=== PATIENT | female | born 1950 | race Caucasian/White ===

== ENCOUNTER → 2018-03-22 12:05 | Outpatient (CLI) | payer MEDICARE, BC, SELFPAY ==
--- NOTE | 2018-03-22 12:06 | DI.RAD.S_ITS ---
PROCEDURE: XR KNEE RT 3V INDICATIONS: pain in R knee TECHNIQUE: 3 views of the knee were acquired. COMPARISON: None. FINDINGS: Bones: No displaced fractures or dislocations are evident. There is questionable cortical lucency within the region of the tibial spines which could potentially represent a nondisplaced fracture. No suspicious bony lesions. The bone mineralization is slightly decreased. There are degenerative changes throughout the knee joint, most pronounced involving the patellofemoral compartment. Soft tissues: There is a large joint effusion. No suspicious soft tissue calcifications. IMPRESSION: Mild cortical heterogeneity within the region of the tibial spines with an associated prominent joint effusion is suspicious for possible nondisplaced tibial spine avulsion fracture. Please consider CT for further evaluation. Dictated by: Daryl Chang M.D. on 03/22/2018 at 12:17 Approved by: Daryl Chang M.D. on 03/22/2018 at 12:19
== END ==
PROVIDERS: Family Provider Physical Medicine & Rehabilitation; PCP Internal Medicine; Visit Provider Physician Assistant
DX: M25.561 Pain in right knee (principal); M25.461 Effusion, right knee
CPT/HCPCS: 73562

== ENCOUNTER → 2018-03-25 13:14 | Outpatient (CLI) | payer MEDICARE, BC, SELFPAY ==
--- NOTE | 2018-03-25 13:17 | DI.CT.S_ITS ---
PROCEDURE: CT LE RT WO CON INDICATIONS: concerning xray for possible fracture TECHNIQUE: Noncontrast 1-1.5 mm axial sections acquired from the mid-patella to the proximal tibia, with coronal and sagittal reformats. COMPARISON: [facility], CR, XR KNEE RT 3V, 03/22/2018, 12:16. FINDINGS: Image quality: Diagnostic. Bones: There is no acute fracture, dislocation, or suspicious osseous lesions identified involving the osseous structures of the right knee. The bone mineralization is within normal limits for the patient's age. There are mild degenerative changes of the knee joint and the proximal tibiofibular joint. These findings are more prominent involving the patellofemoral compartment. Soft tissues: There is a moderate-sized knee joint effusion with a probable Perkins's cyst. No soft tissue masses or loculated fluid collections are evident. There is edema within the prepatellar soft tissues. Imaged muscles about the knee are within normal limits without significant muscle atrophy. Please note that the ligamentous, cartilaginous, and tendinous structures of the knee are not adequately evaluated on CT. There may be a ganglion cyst along the posterior cruciate ligament. IMPRESSION: 1. No acute fracture of the right knee. 2. Mild degenerative changes of the knee. 2. Moderate knee joint effusion with a probable Perkins's cyst. 3. Questionable ganglion cyst on the course of the posterior cruciate ligament. Dictated by: Daryl Chang M.D. on 03/25/2018 at 12:59 Approved by: Daryl Chang M.D. on 03/25/2018 at 13:12
== END ==
PROVIDERS: Family Provider Physical Medicine & Rehabilitation; PCP Internal Medicine; Visit Provider Physician Assistant
DX: M25.561 Pain in right knee (principal); M17.11 Unilateral primary osteoarthritis, right knee; M25.461 Effusion, right knee
CPT/HCPCS: 73700

== ENCOUNTER → 2018-06-20 12:29 | Outpatient (CLI) | payer MEDICARE, BC, SELFPAY ==
[2018-06-20 16:56] LABS: Rubella Antibody IgG > 350.0 IU/mL (>15)
[2018-06-22 14:13] LABS: Rubeola Measles IgG > 300.00 AU/mL (< 25.00)
== END ==
PROVIDERS: PCP Internal Medicine; Visit Provider Internal Medicine
DX: Z78.9 Other specified health status (principal)
CPT/HCPCS: 36415; 86735; 86762; 86765

== ENCOUNTER → 2018-10-17 15:00 | Outpatient (CLI) | payer MEDICARE, BC, SELFPAY | PROVIDERS: Family Provider Physical Medicine & Rehabilitation; PCP Internal Medicine; Visit Provider Internal Medicine | DX: N39.0 Urinary tract infection, site not specified (principal) | CPT/HCPCS: 87077; 87086; 87186 ==

== ENCOUNTER 2018-10-31 07:30 | Outpatient (RCR) | payer MEDICARE, BC, SELFPAY ==
--- NOTE | 2017-07-17 13:39 | PT.OTN ---
Addendum entered and electronically signed by Abiola Mejia, PT 07/17/17 14:42: Transition note: On July 17, 2017 our therapy services consisting of Speech, Occupational, and Physical Therapy transitioned from the [employer] electronic documentation system to a new [employer] electronic documentation system.?? All documentation prior to July 17 can be found under [employer] saved data. From July 17 forward all medical record documentation will be in [employer] 6[employer]1. Original Note: Physical Therapy Treatment Note PT-OP-A Visit Information Start: 07/17/17 13:15 Freq: Status: Active Protocol: Activity Type Activity Date Activity User E-Sign Co-Sign Detail Recorded Client Recorded Date Recorded By Document 07/17/17 13:19 AMB [email or web address] 07/17/17 13:36 AMB 07/17/17 13:19 Out-Patient Physical Therapy Visit Information [Visit Information] -Visit Type Treatment Note -Visit Note POC expires August 31. G codes due visit 13. -Visit Start Time 09:10 -Visit Stop Time 09:50 -Total Visit Minutes 40 -Visit Number 5 PT-OP-C Subjective Start: 07/17/17 13:15 Freq: Status: Active Protocol: Activity Type Activity Date Activity User E-Sign Co-Sign Detail Recorded Client Recorded Date Recorded By Document 07/17/17 13:19 AMB [email or web address] 07/17/17 13:36 AMB 07/17/17 13:19 OP-PT Subjective [Patient Comments] -Patient Comments Pt states she is back on her cancer medication. She feels that her dizziness is worse now that she has been back on it , but it never really went away completely . PT-OP-Q Treatments Start: 07/17/17 13:15 Freq: Status: Active Protocol: Activity Type Activity Date Activity User E-Sign Co-Sign Detail Recorded Client Recorded Date Recorded By Document 07/17/17 13:19 AMB [email or web address] 07/17/17 13:36 AMB 07/17/17 13:19 Neuro Re-Education Treatment [Other Activities] Nakita kuhn -Details Left -Reps/Duration 3 -Comments Patient with torsional upbeating nystagmus with 1st rep lasted 45 seconds, with third rep only 10 seconds . PT-OP-T Assessment and Plan Start: 07/17/17 13:15 Freq: Status: Active Protocol: Activity Type Activity Date Activity User E-Sign Co-Sign Detail Recorded Client Recorded Date Recorded By Document 07/17/17 13:19 AMB [email or web address] 07/17/17 13:36 AMB 07/17/17 13:19 Physical Therapy Assessment [Assessment Summary] -Assessment The patient had torsional nystagmus with left Elyssa Hallpike, which previously was negative. Plan to recheck both right and left at next visit. Physical Therapy Plan [Next Visit Focus/Plan] -Next Visit Plan Recheck [place]- hallpike bilaterally. Current Diagnoses Benign paroxysmal vertigo, unspecified ear (07/17/17)
--- NOTE | 2017-07-30 09:01 | PT.OTN ---
Current Diagnoses Benign paroxysmal vertigo, unspecified ear (07/30/17) Physical Therapy Treatment Note PT-OP-A Visit Information Start: 07/17/17 13:15 Freq: Status: Active Protocol: Document 07/30/17 08:47 AMB (Rec: 07/30/17 08:49 AMB [id number]) Out-Patient Physical Therapy Visit Information Visit Information Visit Type Treatment Note Visit Note POC expires August 31. G codes due vist 13. Visit Start Time 08:00 Visit Stop Time 08:45 Total Visit Minutes 45 Visit Number 6 PT-OP-C Subjective Start: 07/17/17 13:15 Freq: Status: Active Protocol: Document 07/30/17 08:47 AMB (Rec: 07/30/17 08:49 AMB [id number]) OP-PT Subjective Patient Comments Patient Comments Pt states she is feeling better, but today she was dizzy putting her contacts in (tilting her head back). PT-OP-Q Treatments Start: 07/17/17 13:15 Freq: Status: Active Protocol: Document 07/30/17 08:47 AMB (Rec: 07/30/17 08:53 AMB [id number]) Self-Care/Home Management Treatment Activities Self-Care/Home Management Activities post maneuver precautions. managing gardening without flaring sx. Canalithic Repositioning BPPV Treatment Nakita Affected Canal(s) R Reps 3 Comments No nystagmus with L [place]- Hallpike, but strong response to R with the 1st rep, diminished after 3 rep. PT-OP-T Assessment and Plan Start: 07/17/17 13:15 Freq: Status: Active Protocol: Document 07/30/17 08:47 AMB (Rec: 07/30/17 09:01 AMB [id number]) Physical Therapy Assessment Assessment Summary Assessment Pt without nystagmus with L [place]-Hallpike, but with strong torsional response to R Elyssa- Hallpike, possible pt previously had bilateral BPPV and now just R. Physical Therapy Plan Next Visit Focus/Plan Next Visit Plan Reassess [place]-Hallpike position
--- NOTE | 2017-08-16 13:19 | PT.OTN ---
Current Diagnoses Benign paroxysmal vertigo, unspecified ear (08/16/17) Physical Therapy Treatment Note PT-OP-A Visit Information Start: 07/17/17 13:15 Freq: Status: Active Protocol: Document 08/16/17 09:00 AMB (Rec: 08/16/17 13:18 AMB [email or web address]) Out-Patient Physical Therapy Visit Information Visit Information Visit Type Treatment Note Visit Note G codes visit 13. new POC August 31. Visit Start Time 09:00 Visit Stop Time 09:30 Total Visit Minutes 30 Visit Number 7 Evaluation Information Evaluation Date 05/17/17 PT-OP-C Subjective Start: 07/17/17 13:15 Freq: Status: Active Protocol: Document 08/16/17 09:00 AMB (Rec: 08/16/17 13:18 AMB [email or web address]) OP-PT Subjective Patient Comments Patient Comments Pt had VNG that showed L BPPV and L vestibular hypofunction. Overall her dizziness continues but is more manageable. PT-OP-Q Treatments Start: 07/17/17 13:15 Freq: Status: Active Protocol: Document 08/16/17 09:00 AMB (Rec: 08/16/17 13:18 AMB [email or web address]) Neuro Re-Education Treatment Other Activities Hardy Bedoya Details Left Reps/Duration 2 Comments Pt with nystagmus both to the right and the left Nakita manuever Details Left Reps/Duration 1 Comments Patient with torsional upbeating nystagmus with 1st, 2nd and 3rd positions Self-Care/Home Management Treatment Activities Self-Care/Home Management Activities post maneuver precautions. Needed to review again, provide additional paperwork next visit if continues to have questions. PT-OP-T Assessment and Plan Start: 07/17/17 13:15 Freq: Status: Active Protocol: Document 08/16/17 09:00 AMB (Rec: 08/16/17 13:18 AMB [email or web address]) Physical Therapy Assessment Assessment Summary Assessment Pt with nystagmus with positions 1-3 with treatment for L side. Likely BPPV bilateral. Will need to progress vestibular and balance re-ed as well. Physical Therapy Plan Frequency and Duration Frequency of Treatment 2x/Week Plan of Care End Date 08/31/17 Next Visit Focus/Plan Next Visit Plan Try Semont manuever if not progressing with Nakita. Please Sign and Return: I have reviewed this Plan of Care and certify that the skilled therapy services above are required to meet the patient???s needs. Physician Signature Date Printed Name and Credentials Clinical Instructor Signature Printed Name and Credentials
--- NOTE | 2017-08-23 06:50 | PT.OTN ---
Current Diagnoses Benign paroxysmal vertigo, unspecified ear (08/22/17) Physical Therapy Treatment Note PT-OP-A Visit Information Start: 07/17/17 13:15 Freq: Status: Active Protocol: Document 08/22/17 08:15 AMB (Rec: 08/23/17 06:49 AMB [email or web address]) Out-Patient Physical Therapy Visit Information Visit Information Visit Type Treatment Note Visit Note G codes visit 13. new POC August 31. Visit Start Time 08:15 Visit Stop Time 09:00 Total Visit Minutes 45 Visit Number 8 Evaluation Information Evaluation Date 05/17/17 PT-OP-C Subjective Start: 07/17/17 13:15 Freq: Status: Active Protocol: Document 08/22/17 08:15 AMB (Rec: 08/23/17 06:49 AMB [email or web address]) OP-PT Subjective Patient Comments Patient Comments Pt states she had been feeling better, less spinning, until this morning when the spinning returned. She has still felt quite off balance at times. PT-OP-Q Treatments Start: 07/17/17 13:15 Freq: Status: Active Protocol: Document 08/22/17 08:15 AMB (Rec: 08/23/17 06:49 AMB [email or web address]) Neuro Re-Education Treatment Balance Activities 2 Details modified tandem Comments tried to add HT 1 Details SLS Comments Difficult. EO Vestibular Rehabilitation X1 Viewing Background plain Distance From Target 3' Speed slow Position NBOS Other Activities Nakita manuever Details Right Reps/Duration 1 Comments Patient with torsional upbeating nystagmus with 1st position PT-OP-T Assessment and Plan Start: 07/17/17 13:15 Freq: Status: Active Protocol: Document 08/22/17 08:15 AMB (Rec: 08/23/17 06:49 AMB [email or web address]) Physical Therapy Assessment Assessment Summary Assessment Pt without nystagmus in L [place] Hallpike, but did have it in R Elyssa Hallpike. R Nakita performed. Not as long lasting of nystagmus as previous, began treatement of L sided vestibular weakness. Physical Therapy Plan Frequency and Duration Frequency of Treatment 2x/Week Plan of Care End Date 08/31/17 Next Visit Focus/Plan Next Visit Plan Check R and L Elyssa Hallpike, can try Semont, progress vestibular retraining. Please Sign and Return: I have reviewed this Plan of Care and certify that the skilled therapy services above are required to meet the patient?s needs. Physician Signature Date Printed Name and Credentials Clinical Instructor Signature Printed Name and Credentials
--- NOTE | 2017-08-28 06:53 | PT.OTN ---
Current Diagnoses Benign paroxysmal vertigo, unspecified ear (08/27/17) Physical Therapy Treatment Note PT-OP-A Visit Information Start: 07/17/17 13:15 Freq: Status: Active Protocol: Document 08/27/17 08:15 AMB (Rec: 08/28/17 06:51 AMB [email or web address]) Out-Patient Physical Therapy Visit Information Visit Information Visit Type Treatment Note Visit Note G codes visit 13. new POC August 31. Visit Start Time 08:15 Visit Stop Time 09:00 Total Visit Minutes 45 Visit Number 9 PT-OP-C Subjective Start: 07/17/17 13:15 Freq: Status: Active Protocol: Document 08/27/17 08:15 AMB (Rec: 08/28/17 06:51 AMB [email or web address]) OP-PT Subjective Patient Comments Patient Comments pt states she was doing pretty well until yesterday, she was quite dizzy all day PT-OP-Q Treatments Start: 07/17/17 13:15 Freq: Status: Active Protocol: Document 08/27/17 08:15 AMB (Rec: 08/28/17 06:51 AMB [email or web address]) Neuro Re-Education Treatment Other Activities Nakita manuever Details Left Reps/Duration 2 Comments Patient with torsional upbeating nystagmus with 1st position PT-OP-T Assessment and Plan Start: 07/17/17 13:15 Freq: Status: Active Protocol: Document 08/27/17 08:15 AMB (Rec: 08/28/17 06:51 AMB [email or web address]) Physical Therapy Assessment Assessment Summary Assessment Pt needed continued education on role of Elyssa-hallpike vs vestibular hypofunction.May try instruction in home Nakita. Physical Therapy Plan Frequency and Duration Frequency of Treatment 2x/Week Plan of Care End Date 08/31/17 Next Visit Focus/Plan Next Note Type Progress Note Next Visit Plan New POC Please Sign and Return: I have reviewed this Plan of Care and certify that the skilled therapy services above are required to meet the patient?s needs. Physician Signature Date Printed Name and Credentials Clinical Instructor Signature Printed Name and Credentials
--- NOTE | 2017-08-29 09:45 | PT.OTN ---
Current Diagnoses Benign paroxysmal vertigo, unspecified ear (08/29/17) Physical Therapy Treatment Note PT-OP-A Visit Information Start: 07/17/17 13:15 Freq: Status: Active Protocol: Document 08/29/17 08:15 AMB (Rec: 08/29/17 08:49 AMB [id number]) Out-Patient Physical Therapy Visit Information Visit Information Visit Type Treatment Note Visit Note G codes visit 13. new POC August 31. Visit Start Time 08:15 Visit Stop Time 09:00 Total Visit Minutes 45 Visit Number 10 Evaluation Information Evaluation Date 05/17/17 PT-OP-C Subjective Start: 07/17/17 13:15 Freq: Status: Active Protocol: Document 08/29/17 08:15 AMB (Rec: 08/29/17 08:49 AMB [id number]) OP-PT Subjective Patient Comments Patient Comments Pt had a really good day yesterday. PT-OP-Q Treatments Start: 07/17/17 13:15 Freq: Status: Active Protocol: Document 08/29/17 09:00 AMB (Rec: 08/29/17 09:44 AMB [id number]) Neuro Re-Education Treatment Balance Activities 2 Details modified tandem Comments tried to add HT Vestibular Rehabilitation X1 Viewing Background plain Distance From Target 3' Speed slow Position NBOS Other Activities Nakita manuever Details Left and Right Reps/Duration 2 Comments Patient with torsional upbeating nystagmus with 1st position PT-OP-T Assessment and Plan Start: 07/17/17 13:15 Freq: Status: Active Protocol: Document 08/29/17 08:15 AMB (Rec: 08/29/17 09:01 AMB [id number]) Physical Therapy Assessment Assessment Summary Assessment Continued torsional nystagmus with both R and L [place]-Hallpike . Physical Therapy Plan Next Visit Focus/Plan Next Visit Plan Progress VOR1 exercise Please Sign and Return: I have reviewed this Plan of Care and certify that the skilled therapy services above are required to meet the patient?s needs. Physician Signature Date Printed Name and Credentials Clinical Instructor Signature Printed Name and Credentials
--- NOTE | 2017-09-03 15:46 | PT.OTN ---
Current Diagnoses Benign paroxysmal vertigo, unspecified ear (09/03/17) Physical Therapy Treatment Note PT-OP-A Visit Information Start: 07/17/17 13:15 Freq: Status: Active Protocol: Document 09/03/17 08:15 AMB (Rec: 09/03/17 08:51 AMB [id number]) Out-Patient Physical Therapy Visit Information Visit Information Visit Type Progress Note Visit Start Time 08:15 Visit Stop Time 09:00 Total Visit Minutes 45 Visit Number 11 Evaluation Information Evaluation Date 05/17/17 PT-OP-C Subjective Start: 07/17/17 13:15 Freq: Status: Active Protocol: Document 09/03/17 08:15 AMB (Rec: 09/03/17 15:45 AMB [email or web address]) OP-PT Subjective Patient Comments Patient Comments Patient states she felt good except for getting dizzy when going up and down the stairs at the movie theater and getting up today from bed. Patient Reported Progress Improving PT-OP-Q Treatments Start: 07/17/17 13:15 Freq: Status: Active Protocol: Document 09/03/17 08:15 AMB (Rec: 09/03/17 15:45 AMB [email or web address]) Neuro Re-Education Treatment Balance Activities 2 Details modified tandem Comments better tolerance of slow HT 1 Details SLS Comments Difficult. EO Other Activities Nakita chelyever Details Right Reps/Duration 1 Comments Patient with torsional upbeating nystagmus with 1st position PT-OP-T Assessment and Plan Start: 07/17/17 13:15 Freq: Status: Active Protocol: Document 09/03/17 08:15 AMB (Rec: 09/03/17 15:45 AMB [email or web address]) Physical Therapy Assessment Goals 2 Impairment Balance Short Term Goal (STG) The patient will turn her head without spinning. STG Duration 4 weeks Retirement Goal (LTG) The patient will improve her balance so that she can tolerate modified tandem stance with eyes closed for 30 seconds without LOB. LTG Duration 8 weeks 1 Impairment Dizziness Short Term Goal (STG) The patient will display no nystagmus or dizziness with [place]-Hallpike. STG Duration 4 weeks Practice Consultant Goal (LTG) The patient will get into and out of bed without spinning symptoms. LTG Duration 8 weeks Assessment Summary Assessment The patient reports about 60% improvement in symptoms since initial evaluation. While she originally had BPPV in both right and left posterior canals, at this visit she only showed nystagmus in the right ear. She continues to have poor balance and a feeling of spinning and not trusting her balance intermittently. She does not always spin when getting out of bed like she used to. She is an interesting case, and we will closely watch if her symptoms in the left ear return. She seems to be doing better with this increased frequency of PT , and we will work to get her independent with a vestibular rehab HEP once she does not show nystagmus with Elyssa- hallpike testing. Physical Therapy Plan Frequency and Duration Frequency of Treatment 2x/Week Duration of Treatment 8 weeks Plan of Care Start Date 09/03/17 Plan of Care End Date 10/29/17 Therapeutic Interventions Therapeutic Interventions Balance Training Canalithic Repositioning Coordination Training Gait Training Home Exercise Program Neuromuscular Re-education Self-Care/Home Management Therapeutic Activities Therapeutic Exercises Next Visit Focus/Plan Next Note Type Treatment Note
--- NOTE | 2017-09-11 15:23 | PT.OTN ---
Current Diagnoses Benign paroxysmal vertigo, unspecified ear (09/11/17) Physical Therapy Treatment Note PT-OP-A Visit Information Start: 07/17/17 13:15 Freq: Status: Active Protocol: Document 09/11/17 08:15 AMB (Rec: 09/11/17 08:22 AMB [id number]) Out-Patient Physical Therapy Visit Information Visit Information Visit Type Treatment Note Visit Start Time 08:15 Visit Stop Time 09:00 Total Visit Minutes 45 Visit Number 13 Evaluation Information Evaluation Date 05/17/17 PT-OP-C Subjective Start: 07/17/17 13:15 Freq: Status: Active Protocol: Document 09/11/17 08:15 AMB (Rec: 09/11/17 08:22 AMB [id number]) OP-PT Subjective Patient Comments Patient Comments Pt felt sx with L ear down yesterday. Has been able to go on long walks, without sx, but then gets sx later in the evening. PT-OP-Q Treatments Start: 07/17/17 13:15 Freq: Status: Active Protocol: Document 09/11/17 08:15 AMB (Rec: 09/11/17 08:48 AMB [id number]) Neuro Re-Education Treatment Balance Activities 2 Details modified tandem Comments better tolerance of slow HT Other Activities 1 Details Semont Reps/Duration R 1 PT-OP-T Assessment and Plan Start: 07/17/17 13:15 Freq: Status: Active Protocol: Document 09/11/17 08:15 AMB (Rec: 09/11/17 15:23 AMB [email or web address]) Physical Therapy Assessment Assessment Summary Assessment The patient continues to have dizziness and less spinning. Today was the first day that she did not have nystagmus with either R or L [place] Hallpike. Continues to need to work on VOR and balance activities. Will be rechecking Elyssa Hallpike as pt continues to feel intermittent spinning, but overall much less frequent and less severe. Physical Therapy Plan Next Visit Focus/Plan Next Note Type Treatment Note Next Visit Plan Progress VOR, dynamic balance.
--- NOTE | 2017-09-14 08:54 | PT.OTN ---
Current Diagnoses Benign paroxysmal vertigo, unspecified ear (09/14/17) Physical Therapy Treatment Note PT-OP-A Visit Information Start: 07/17/17 13:15 Freq: Status: Active Protocol: Document 09/14/17 08:15 AMB (Rec: 09/14/17 08:19 AMB [id number]) Out-Patient Physical Therapy Visit Information Visit Information Visit Type Treatment Note Visit Start Time 08:15 Visit Stop Time 09:00 Total Visit Minutes 45 Visit Number 14 Evaluation Information Evaluation Date 05/17/17 PT-OP-C Subjective Start: 07/17/17 13:15 Freq: Status: Active Protocol: Document 09/14/17 08:15 AMB (Rec: 09/14/17 08:26 AMB [id number]) OP-PT Subjective Patient Comments Patient Comments Pt reports dizziness rolling over at massage therapists yesterday. PT-OP-Q Treatments Start: 07/17/17 13:15 Freq: Status: Active Protocol: Document 09/14/17 08:15 AMB (Rec: 09/14/17 08:50 AMB [id number]) Neuro Re-Education Treatment Other Activities 1 Details Semont Reps/Duration L1 Nakita manuever Details L Reps/Duration 1 PT-OP-T Assessment and Plan Start: 07/17/17 13:15 Freq: Status: Active Protocol: Document 09/14/17 08:15 AMB (Rec: 09/14/17 08:50 AMB [id number]) Physical Therapy Assessment Assessment Summary Assessment Pt with increased sx on the left today Physical Therapy Plan Frequency and Duration Frequency of Treatment 2x/Week Duration of Treatment 8 weeks Plan of Care Start Date 09/03/17 Plan of Care End Date 10/29/17 Next Visit Focus/Plan Next Note Type Treatment Note Next Visit Plan Reassess L [place]-Hallpike
--- NOTE | 2017-09-18 16:34 | PT.OTN ---
Current Diagnoses Benign paroxysmal vertigo, unspecified ear (09/18/17) Physical Therapy Treatment Note PT-OP-A Visit Information Start: 07/17/17 13:15 Freq: Status: Active Protocol: Document 09/18/17 08:20 AMB (Rec: 09/18/17 08:25 AMB [id number]) Out-Patient Physical Therapy Visit Information Visit Information Visit Type Treatment Note Visit Start Time 08:20 Visit Stop Time 09:00 Total Visit Minutes 40 Visit Number 15 Evaluation Information Evaluation Date 05/17/17 PT-OP-C Subjective Start: 07/17/17 13:15 Freq: Status: Active Protocol: Document 09/18/17 08:20 AMB (Rec: 09/18/17 08:25 AMB [id number]) OP-PT Subjective Patient Comments Patient Comments Pt reports sx increase when tired and fatigued. PT-OP-Q Treatments Start: 07/17/17 13:15 Freq: Status: Active Protocol: Document 09/18/17 08:20 AMB (Rec: 09/18/17 16:33 AMB [email or web address]) Neuro Re-Education Treatment Balance Activities 2 Details modified tandem Comments better tolerance of slow HT Vestibular Rehabilitation X1 Viewing Details thumb Speed slow Comments modified tandem PT-OP-T Assessment and Plan Start: 07/17/17 13:15 Freq: Status: Active Protocol: Document 09/18/17 08:20 AMB (Rec: 09/18/17 16:33 AMB [email or web address]) Physical Therapy Assessment Goals 2 Impairment Balance Short Term Goal (STG) The patient will turn her head without spinning. STG Duration 4 weeks Tumblers Supervisor Goal (LTG) The patient will improve her balance so that she can tolerate modified tandem stance with eyes closed for 30 seconds without LOB. LTG Duration 8 weeks 1 Impairment Dizziness Short Term Goal (STG) The patient will display no nystagmus or dizziness with [place]-Hallpike. STG Duration 4 weeks Tumblers Supervisor Goal (LTG) The patient will get into and out of bed without spinning symptoms. LTG Duration 8 weeks Assessment Summary Assessment No nystagmus with R or L [place] Hallpike today. However pt with five line change in DVA. Will continue to need vestibular rehab, and will recheck [place]pike bilaterally. Physical Therapy Plan Next Visit Focus/Plan Next Note Type Treatment Note Next Visit Plan Progress vestibular rehab
--- NOTE | 2017-09-21 15:22 | PT.OTN ---
Current Diagnoses Benign paroxysmal vertigo, unspecified ear (09/21/17) Physical Therapy Treatment Note PT-OP-A Visit Information Start: 07/17/17 13:15 Freq: Status: Active Protocol: Document 09/21/17 08:15 AMB (Rec: 09/21/17 15:22 AMB [email or web address]) Out-Patient Physical Therapy Visit Information Visit Information Visit Type Treatment Note Visit Start Time 08:15 Visit Stop Time 09:00 Total Visit Minutes 45 Visit Number 16 Evaluation Information Evaluation Date 05/17/17 PT-OP-C Subjective Start: 07/17/17 13:15 Freq: Status: Active Protocol: Document 09/21/17 08:15 AMB (Rec: 09/21/17 15:22 AMB [email or web address]) OP-PT Subjective Patient Comments Patient Comments Overall pt has noticed improved sx, still feels off balance with more adventurous activities (hiking around [place]). PT-OP-Q Treatments Start: 07/17/17 13:15 Freq: Status: Active Protocol: Document 09/21/17 08:15 AMB (Rec: 09/21/17 15:22 AMB [email or web address]) Neuro Re-Education Treatment Balance Activities 5 Details EC Surface blue foam Comments increased ankle sway, in corner 4 Details walking with bow forward 3 Details walking with head turns Surface smooth Comments horizontal and vertical, veering with horizontal 2 Details modified tandem Comments better tolerance of slow HT Vestibular Rehabilitation X1 Viewing Details thumb Speed slow Comments modified tandem PT-OP-T Assessment and Plan Start: 07/17/17 13:15 Freq: Status: Active Protocol: Document 09/21/17 08:15 AMB (Rec: 09/21/17 15:22 AMB [email or web address]) Physical Therapy Assessment Assessment Summary Assessment Again no nystagmus, but continued balance dysfunction, worst with horizontal head turns. Physical Therapy Plan Frequency and Duration Frequency of Treatment 2x/Week Duration of Treatment 8 weeks Plan of Care Start Date 09/03/17 Plan of Care End Date 10/29/17 Next Visit Focus/Plan Next Note Type Treatment Note Next Visit Plan Progress vestibular rehab
--- NOTE | 2017-09-25 09:01 | PT.OTN ---
Current Diagnoses Benign paroxysmal vertigo, unspecified ear (09/25/17) Physical Therapy Treatment Note PT-OP-A Visit Information Start: 07/17/17 13:15 Freq: Status: Active Protocol: Document 09/25/17 08:15 AMB (Rec: 09/25/17 08:19 AMB [id number]) Out-Patient Physical Therapy Visit Information Visit Information Visit Type Treatment Note Visit Start Time 08:15 Visit Stop Time 09:00 Total Visit Minutes 45 Visit Number 17 Evaluation Information Evaluation Date 05/17/17 PT-OP-C Subjective Start: 07/17/17 13:15 Freq: Status: Active Protocol: Document 09/25/17 08:15 AMB (Rec: 09/25/17 08:19 AMB [id number]) OP-PT Subjective Patient Comments Patient Comments Pt reports dizziness last night with getting up and turning PT-OP-Q Treatments Start: 07/17/17 13:15 Freq: Status: Active Protocol: Document 09/25/17 08:15 AMB (Rec: 09/25/17 09:00 AMB [id number]) Neuro Re-Education Treatment Vestibular Rehabilitation X1 Viewing Details thumb Speed slow Comments modified tandem Other Activities Nakita manuever Details R Reps/Duration 2 PT-OP-T Assessment and Plan Start: 07/17/17 13:15 Freq: Status: Active Protocol: Document 09/25/17 08:15 AMB (Rec: 09/25/17 09:00 AMB [id number]) Physical Therapy Assessment Assessment Summary Assessment Pt with nystagmus with R sided [place]-Hallpike. Torsional upbeating with both 1st and 2nd rep. Physical Therapy Plan Next Visit Focus/Plan Next Note Type Treatment Note
--- NOTE | 2017-10-02 09:23 | PT.OTN ---
Current Diagnoses Benign paroxysmal vertigo, unspecified ear (10/02/17) Physical Therapy Treatment Note PT-OP-A Visit Information Start: 07/17/17 13:15 Freq: Status: Active Protocol: Document 10/02/17 08:15 AMB (Rec: 10/02/17 09:01 AMB [id number]) Out-Patient Physical Therapy Visit Information Visit Information Visit Type Treatment Note Visit Start Time 08:15 Visit Stop Time 09:00 Total Visit Minutes 45 Visit Number 18 Evaluation Information Evaluation Date 05/17/17 PT-OP-C Subjective Start: 07/17/17 13:15 Freq: Status: Active Protocol: Document 10/02/17 08:15 AMB (Rec: 10/02/17 09:01 AMB [id number]) OP-PT Subjective Patient Comments Patient Comments Pt reports dizziness yesterday , otherwise doing well. PT-OP-Q Treatments Start: 07/17/17 13:15 Freq: Status: Active Protocol: Document 10/02/17 08:15 AMB (Rec: 10/02/17 09:15 AMB [email or web address]) Neuro Re-Education Treatment Balance Activities 5 Details EC Surface blue foam Comments increased ankle sway, in corner 3 Details walking with head turns Surface smooth Comments horizontal and vertical, veering with horizontal 2 Details modified tandem Comments better tolerance of slow HT Vestibular Rehabilitation X1 Viewing Details thumb Speed slow Comments modified tandem PT-OP-T Assessment and Plan Start: 07/17/17 13:15 Freq: Status: Active Protocol: Document 10/02/17 08:15 AMB (Rec: 10/02/17 09:15 AMB [email or web address]) Physical Therapy Assessment Assessment Summary Assessment No nystagmus with Elyssa-hallpike testing today, but pt with multiple LOB with eyes closed activities. Physical Therapy Plan Next Visit Focus/Plan Next Note Type Treatment Note Next Visit Plan Progress vestibular rehab
--- NOTE | 2017-10-05 17:31 | PT.OTN ---
Current Diagnoses Benign paroxysmal vertigo, unspecified ear (10/05/17) Physical Therapy Treatment Note PT-OP-A Visit Information Start: 07/17/17 13:15 Freq: Status: Active Protocol: Document 10/05/17 08:15 AMB (Rec: 10/05/17 08:46 AMB [id number]) Out-Patient Physical Therapy Visit Information Visit Information Visit Type Treatment Note Visit Start Time 08:15 Visit Stop Time 09:00 Total Visit Minutes 45 Visit Number 19 Evaluation Information Evaluation Date 05/17/17 PT-OP-C Subjective Start: 07/17/17 13:15 Freq: Status: Active Protocol: Document 10/05/17 08:15 AMB (Rec: 10/05/17 08:46 AMB [id number]) OP-PT Subjective Patient Comments Patient Comments Pt concerned about her neck dysfunction. PT-OP-Q Treatments Start: 07/17/17 13:15 Freq: Status: Active Protocol: Document 10/05/17 08:15 AMB (Rec: 10/05/17 17:30 AMB [email or web address]) Neuro Re-Education Treatment Balance Activities 5 Details EC Surface blue foam Comments increased ankle sway, in corner 3 Details walking with head turns Surface smooth Comments horizontal and vertical, veering with horizontal and vertical 2 Details modified tandem Comments better tolerance of slow HT Vestibular Rehabilitation X1 Viewing Details thumb Speed slow Comments modified tandem PT-OP-T Assessment and Plan Start: 07/17/17 13:15 Freq: Status: Active Protocol: Document 10/05/17 08:15 AMB (Rec: 10/05/17 17:30 AMB [email or web address]) Physical Therapy Assessment Assessment Summary Assessment No nystagmus with [place]-hallpike . Pt concerned about cervicogenic dizziness but denies neck pain, had more dizziness with cervicogenic testing. Physical Therapy Plan Next Visit Focus/Plan Next Note Type Treatment Note Next Visit Plan Progress vestibular rehab
--- NOTE | 2017-10-18 09:39 | PT.OTN ---
Current Diagnoses Benign paroxysmal vertigo, unspecified ear (10/18/17) Physical Therapy Treatment Note PT-OP-A Visit Information Start: 07/17/17 13:15 Freq: Status: Active Protocol: Document 10/18/17 07:30 AMB (Rec: 10/18/17 07:44 AMB [id number]) Out-Patient Physical Therapy Visit Information Visit Information Visit Type Treatment Note Visit Start Time 08:15 Visit Stop Time 09:00 Total Visit Minutes 45 Visit Number 20 Evaluation Information Evaluation Date 05/17/17 PT-OP-C Subjective Start: 07/17/17 13:15 Freq: Status: Active Protocol: Document 10/18/17 07:30 AMB (Rec: 10/18/17 07:44 AMB [id number]) OP-PT Subjective Patient Comments Patient Comments Pt has a disc bulge in L1. Last week she did feel a bit dizzy, not spinny per se. PT-OP-Q Treatments Start: 07/17/17 13:15 Freq: Status: Active Protocol: Document 10/18/17 07:30 AMB (Rec: 10/18/17 09:38 AMB [email or web address]) Neuro Re-Education Treatment Vestibular Rehabilitation X1 Viewing Details thumb Speed slow Comments modified tandem Other Activities Nakita manuever Details R Reps/Duration 2 PT-OP-T Assessment and Plan Start: 07/17/17 13:15 Freq: Status: Active Protocol: Document 10/18/17 07:30 AMB (Rec: 10/18/17 09:38 AMB [email or web address]) Physical Therapy Assessment Assessment Summary Assessment Pt with 1 burst of nystagmus with R Dix_hallpike, but not with left. Physical Therapy Plan Next Visit Focus/Plan Next Note Type Treatment Note Next Visit Plan Recheck Elyssa-Hallpike
--- NOTE | 2017-10-25 08:46 | PT.OTN ---
Current Diagnoses Benign paroxysmal vertigo, unspecified ear (10/25/17) Physical Therapy Treatment Note PT-OP-A Visit Information Start: 07/17/17 13:15 Freq: Status: Active Protocol: Document 10/25/17 07:30 AMB (Rec: 10/25/17 08:43 AMB [email or web address]) Out-Patient Physical Therapy Visit Information Visit Information Visit Type Progress Note Visit Note 0/10 G code Visit Start Time 07:30 Visit Stop Time 08:15 Total Visit Minutes 45 Visit Number 21 Evaluation Information Evaluation Date 05/17/17 PT-OP-C Subjective Start: 07/17/17 13:15 Freq: Status: Active Protocol: Document 10/25/17 07:30 AMB (Rec: 10/25/17 08:43 AMB [email or web address]) OP-PT Subjective Patient Comments Patient Comments The patient reports [place] and was very spinning. PT-OP-Q Treatments Start: 07/17/17 13:15 Freq: Status: Active Protocol: Document 10/25/17 07:30 AMB (Rec: 10/25/17 08:43 AMB [email or web address]) Neuro Re-Education Treatment Other Activities Nakita kuhn Details R Reps/Duration 2 PT-OP-T Assessment and Plan Start: 07/17/17 13:15 Freq: Status: Active Protocol: Document 10/25/17 07:30 AMB (Rec: 10/25/17 08:43 AMB [email or web address]) Physical Therapy Assessment Goals 2 Impairment Balance Short Term Goal (STG) The patient will turn her head without spinning. NOT MET STG Duration 4 weeks Truck Manager Goal (LTG) The patient will improve her balance so that she can tolerate modified tandem stance with eyes closed for 30 seconds without LOB. NOT MET LTG Duration 8 weeks 1 Impairment Dizziness Short Term Goal (STG) The patient will display no nystagmus or dizziness with Elyssa-Hallpike. Previously met, but then symptoms recurred STG Duration 4 weeks [facility] Goal (LTG) The patient will get into and out of bed without spinning symptoms. Previously met, then symptoms recurred LTG Duration 8 weeks Assessment Summary Assessment While the patient had previously had progressed past canalith repositioning and we were working more on balance exercises and how to manage her vestibular weakness symptoms. However she now has had a return of her right sided BPPV symptoms. 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 Overall her case has been quite unusual, and she is concerned that her cancer medication is worsening her vestibular sympotms. That said she is at a point now where she feels like she is managing her symptoms (this week with the return of the BPPV was worse though). Physical Therapy Plan Frequency and Duration Frequency of Treatment 2x/Week Duration of Treatment 10 weeks Plan of Care Start Date 10/25/17 Plan of Care End Date 01/03/18 Therapeutic Interventions Therapeutic Interventions Balance Training Canalithic Repositioning Gait Training Home Exercise Program Neuromuscular Re-education Self-Care/Home Management Therapeutic Activities Therapeutic Exercises Vestibular Rehabilitation Next Visit Focus/Plan Next Note Type Treatment Note Next Visit Plan Dash Tomas
--- NOTE | 2017-11-01 08:46 | PT.OTN ---
Current Diagnoses Benign paroxysmal vertigo, unspecified ear (11/01/17) Physical Therapy Treatment Note PT-OP-A Visit Information Start: 07/17/17 13:15 Freq: Status: Active Protocol: Document 11/01/17 07:30 AMB (Rec: 11/02/17 07:29 AMB [email or web address]) Out-Patient Physical Therapy Visit Information Visit Information Visit Type Treatment Note Visit Note 03/28 G code Visit Start Time 07:30 Visit Stop Time 08:15 Total Visit Minutes 45 Visit Number 22 Evaluation Information Evaluation Date 05/17/17 PT-OP-C Subjective Start: 07/17/17 13:15 Freq: Status: Active Protocol: Document 11/01/17 07:30 AMB (Rec: 11/02/17 07:29 AMB [email or web address]) OP-PT Subjective Patient Comments Patient Comments Pt has been dizzy but not too bad at times. PT-OP-Q Treatments Start: 07/17/17 13:15 Freq: Status: Active Protocol: Document 11/01/17 07:30 AMB (Rec: 11/02/17 07:45 AMB [email or web address]) Neuro Re-Education Treatment Other Activities Nakita manuever Details R Reps/Duration 3 PT-OP-T Assessment and Plan Start: 07/17/17 13:15 Freq: Status: Active Protocol: Document 11/01/17 07:30 AMB (Rec: 11/02/17 07:45 AMB [email or web address]) Physical Therapy Assessment Assessment Summary Assessment Pt with torsional upbeating nystagmus with 1st position of Nakita. Repeated instruction for post manuever precautions. Pt is fairly active (likes to golf) and avoiding bending forward and cervical extension may be difficult. Physical Therapy Plan Next Visit Focus/Plan Next Note Type Treatment Note Next Visit Plan Consider alternative canalith repositioning techniques if Nakita is not progressing
--- NOTE | 2017-11-08 10:49 | PT.OTN ---
Current Diagnoses Benign paroxysmal vertigo, unspecified ear (11/08/17) Physical Therapy Treatment Note PT-OP-A Visit Information Start: 07/17/17 13:15 Freq: Status: Active Protocol: Document 11/08/17 07:30 AMB (Rec: 11/08/17 10:47 AMB [email or web address]) Out-Patient Physical Therapy Visit Information Visit Information Visit Type Treatment Note Visit Note 2/10 G code Visit Start Time 07:30 Visit Stop Time 08:15 Total Visit Minutes 45 Visit Number 23 Evaluation Information Evaluation Date 05/17/17 PT-OP-C Subjective Start: 07/17/17 13:15 Freq: Status: Active Protocol: Document 11/08/17 07:30 AMB (Rec: 11/08/17 10:49 AMB [email or web address]) OP-PT Subjective Patient Comments Patient Comments Pt reports she was feeling pretty good on Sunday and Sunday, but spinning with rolling over in bed returned yesterday. Her single leg balance is improving. PT-OP-Q Treatments Start: 07/17/17 13:15 Freq: Status: Active Protocol: Document 11/08/17 07:30 AMB (Rec: 11/08/17 10:47 AMB [email or web address]) Neuro Re-Education Treatment Other Activities Nakita manuever Details R Reps/Duration 2 Comments torsional upbeating nystagmus with 3 second latency and then lasts for ~15 seconds. PT-OP-T Assessment and Plan Start: 07/17/17 13:15 Freq: Status: Active Protocol: Document 11/08/17 07:30 AMB (Rec: 11/08/17 10:47 AMB [email or web address]) Physical Therapy Assessment Assessment Summary Assessment Provided extensive education about anatomy of BPPV, importance of avoiding cervical extension after manuever. Pt did have sx after first repetition of Nakita when moving from looking down to looking forward. Physical Therapy Plan Next Visit Focus/Plan Next Note Type Treatment Note Next Visit Plan Consider alternative canalith repositioning techniques if Nakita is not progressing
--- NOTE | 2017-11-15 12:55 | PT.OTN ---
Current Diagnoses Benign paroxysmal vertigo, unspecified ear (11/15/17) Physical Therapy Treatment Note PT-OP-A Visit Information Start: 07/17/17 13:15 Freq: Status: Active Protocol: Document 11/15/17 09:45 AMB (Rec: 11/15/17 12:55 AMB [email or web address]) Out-Patient Physical Therapy Visit Information Visit Information Visit Type Treatment Note Visit Note 3/10 G code Visit Start Time 09:00 Visit Stop Time 09:45 Total Visit Minutes 45 Visit Number 24 Evaluation Information Evaluation Date 05/17/17 PT-OP-C Subjective Start: 07/17/17 13:15 Freq: Status: Active Protocol: Document 11/15/17 09:45 AMB (Rec: 11/15/17 12:55 AMB [email or web address]) OP-PT Subjective Patient Comments Patient Comments Pt reports Sunday she was feeling pretty good, but yesterday her golf game was completely off ( difficulty bending forward without spinning). PT-OP-Q Treatments Start: 07/17/17 13:15 Freq: Status: Active Protocol: Document 11/15/17 09:45 AMB (Rec: 11/15/17 12:55 AMB [email or web address]) Neuro Re-Education Treatment Vestibular Rehabilitation X1 Viewing Details thumb Speed slow Comments modified tandem Other Activities Nakita manuever Details R Reps/Duration 2 Comments torsional upbeating nystagmus with 3 second latency and then lasts for ~15 seconds. PT-OP-T Assessment and Plan Start: 07/17/17 13:15 Freq: Status: Active Protocol: Document 11/15/17 09:45 AMB (Rec: 11/15/17 12:55 AMB [email or web address]) Physical Therapy Assessment Goals 2 Impairment Balance Short Term Goal (STG) The patient will turn her head without spinning. NOT MET STG Duration 4 weeks Longterm Goal (LTG) The patient will improve her balance so that she can tolerate modified tandem stance with eyes closed for 30 seconds without LOB. NOT MET LTG Duration 8 weeks 1 Impairment Dizziness Short Term Goal (STG) The patient will display no nystagmus or dizziness with Elyssa-Hallpike. Previously met, but then symptoms recurred STG Duration 4 weeks Switching Clerk Goal (LTG) The patient will get into and out of bed without spinning symptoms. Previously met, then symptoms recurred LTG Duration 8 weeks Assessment Summary Assessment Needed to review X1 exercises as pt was doing them incorrectly. Reiterated post manuever precautions again. Physical Therapy Plan Frequency and Duration Frequency of Treatment 2x/Week Duration of Treatment 10 weeks Plan of Care Start Date 10/25/17 Plan of Care End Date 01/03/18 Next Visit Focus/Plan Next Note Type Treatment Note Next Visit Plan Consider alternative canalith repositioning techniques if Nakita is not progressing
--- NOTE | 2017-11-21 08:38 | PT.OTN ---
Current Diagnoses Benign paroxysmal vertigo, unspecified ear (11/21/17) Physical Therapy Treatment Note PT-OP-A Visit Information Start: 07/17/17 13:15 Freq: Status: Active Protocol: Document 11/21/17 07:30 AMB (Rec: 11/21/17 08:01 AMB [id number]) Out-Patient Physical Therapy Visit Information Visit Information Visit Type Treatment Note Visit Note 4/10 G code Visit Start Time 07:30 Visit Stop Time 08:15 Total Visit Minutes 45 Visit Number 25 Evaluation Information Evaluation Date 05/17/17 PT-OP-C Subjective Start: 07/17/17 13:15 Freq: Status: Active Protocol: Document 11/21/17 07:30 AMB (Rec: 11/21/17 08:01 AMB [id number]) OP-PT Subjective Patient Comments Patient Comments Pt reports she needed to take meclizine a few days ago. PT-OP-Q Treatments Start: 07/17/17 13:15 Freq: Status: Active Protocol: Document 11/21/17 07:30 AMB (Rec: 11/21/17 08:38 AMB [email or web address]) Neuro Re-Education Treatment Other Activities 1 Details Semont Reps/Duration 1 Comments R Nakita manuever Details R Reps/Duration 2 Comments torsional upbeating nystagmus with 5 second latency and then lasts for ~15 seconds. PT-OP-T Assessment and Plan Start: 07/17/17 13:15 Freq: Status: Active Protocol: Document 11/21/17 07:30 AMB (Rec: 11/21/17 08:38 AMB [email or web address]) Physical Therapy Assessment Assessment Summary Assessment Pt with continued nystagmus, worse with Nakita than Semont. Physical Therapy Plan Next Visit Focus/Plan Next Note Type Treatment Note Next Visit Plan Recheck Elyssa-hallpike, if sx subside return to central vestibular training
--- NOTE | 2017-11-30 09:47 | PT.OTN ---
Current Diagnoses Benign paroxysmal vertigo, unspecified ear (11/30/17) Physical Therapy Treatment Note PT-OP-A Visit Information Start: 07/17/17 13:15 Freq: Status: Active Protocol: Document 11/30/17 09:00 DCW (Rec: 11/30/17 09:46 DCW [id number]) Out-Patient Physical Therapy Visit Information Visit Information Visit Type Treatment Note Visit Note 5/10 G code Visit Start Time 09:00 Visit Stop Time 09:45 Total Visit Minutes 45 Visit Number 26 Evaluation Information Evaluation Date 05/17/17 PT-OP-C Subjective Start: 07/17/17 13:15 Freq: Status: Active Protocol: Document 11/30/17 09:00 DCW (Rec: 11/30/17 09:46 DCW [id number]) OP-PT Subjective Patient Comments Patient Comments Pt reports that yesterday was more of a dizzy day, but still feels way, way, way better than when she started PT-OP-Q Treatments Start: 07/17/17 13:15 Freq: Status: Active Protocol: Document 11/30/17 09:00 DCW (Rec: 11/30/17 09:46 DCW [id number]) Neuro Re-Education Treatment Vestibular Rehabilitation Disco Ball Distance From Target 3' Position Standing on blue foam Other Activities Nakita manuever Details R Reps/Duration 2 Comments torsional upbeating nystagmus with 5 second latency and then lasts for ~15 seconds. PT-OP-T Assessment and Plan Start: 07/17/17 13:15 Freq: Status: Active Protocol: Document 11/30/17 09:00 DCW (Rec: 11/30/17 09:46 DCW [id number]) Physical Therapy Assessment Goals 2 Impairment Balance Short Term Goal (STG) The patient will turn her head without spinning. NOT MET STG Duration 4 weeks [facility] Goal (LTG) The patient will improve her balance so that she can tolerate modified tandem stance with eyes closed for 30 seconds without LOB. NOT MET LTG Duration 8 weeks 1 Impairment Dizziness Short Term Goal (STG) The patient will display no nystagmus or dizziness with Elyssa-Hallpike. Previously met, but then symptoms recurred STG Duration 4 weeks [facility] Goal (LTG) The patient will get into and out of bed without spinning symptoms. Previously met, then symptoms recurred LTG Duration 8 weeks Assessment Summary Assessment Pt presented with positive Nakita Perales performed x2, reduced, though still present, symptoms the second time. Physical Therapy Plan Frequency and Duration Frequency of Treatment 2x/Week Duration of Treatment 10 weeks Plan of Care Start Date 10/25/17 Plan of Care End Date 01/03/18 Next Visit Focus/Plan Next Note Type Treatment Note Next Visit Plan Vestibular rehabilitation
--- NOTE | 2017-12-04 13:28 | PT.OTN ---
Current Diagnoses Benign paroxysmal vertigo, unspecified ear (12/04/17) Physical Therapy Treatment Note PT-OP-A Visit Information Start: 07/17/17 13:15 Freq: Status: Active Protocol: Document 12/04/17 12:00 DCW (Rec: 12/04/17 13:28 [facility] [id number]) Out-Patient Physical Therapy Visit Information Visit Information Visit Type Treatment Note Visit Note 6/10 G code Visit Start Time 12:00 Visit Stop Time 12:45 Total Visit Minutes 45 Visit Number 27 Evaluation Information Evaluation Date 05/17/17 PT-OP-C Subjective Start: 07/17/17 13:15 Freq: Status: Active Protocol: Document 12/04/17 12:00 DCW (Rec: 12/04/17 13:28 [facility] [id number]) OP-PT Subjective Patient Comments Patient Comments Pt notes being off-kilter today, reports that she was golfing at [facility] yesterday PT-OP-Q Treatments Start: 07/17/17 13:15 Freq: Status: Active Protocol: Document 12/04/17 12:00 DCW (Rec: 12/04/17 13:28 [facility] [id number]) Neuro Re-Education Treatment Balance Activities 6 Details Pin the tail on the donkey Comments Turns with eyes closed Vestibular Rehabilitation Laser tracking Details Signature/Maze Distance From Target 2 feet X1 Viewing Details thumb Speed slow Other Activities Nakita moever Details R Reps/Duration 2 Comments torsional upbeating nystagmus with 5 second latency and then lasts for ~15 seconds. PT-OP-T Assessment and Plan Start: 07/17/17 13:15 Freq: Status: Active Protocol: Document 12/04/17 12:00 DCW (Rec: 12/04/17 13:28 [facility] [id number]) Physical Therapy Assessment Goals 2 Impairment Balance Short Term Goal (STG) The patient will turn her head without spinning. NOT MET STG Duration 4 weeks Retirement Goal (LTG) The patient will improve her balance so that she can tolerate modified tandem stance with eyes closed for 30 seconds without LOB. NOT MET LTG Duration 8 weeks 1 Impairment Dizziness Short Term Goal (STG) The patient will display no nystagmus or dizziness with Elyssa-Hallpike. Previously met, but then symptoms recurred STG Duration 4 weeks Retirement Goal (LTG) The patient will get into and out of bed without spinning symptoms. Previously met, then symptoms recurred LTG Duration 8 weeks Assessment Summary Assessment Pt struggled greatly with turning eyes closed to the right, often stopping 45-90 degrees too early. Physical Therapy Plan Frequency and Duration Frequency of Treatment 2x/Week Duration of Treatment 10 weeks Plan of Care Start Date 10/25/17 Plan of Care End Date 01/03/18 Next Visit Focus/Plan Next Note Type Treatment Note Next Visit Plan Vestibular rehabilitation
--- NOTE | 2017-12-14 10:16 | PT.OTN ---
Current Diagnoses Benign paroxysmal vertigo, unspecified ear (12/14/17) Physical Therapy Treatment Note PT-OP-A Visit Information Start: 07/17/17 13:15 Freq: Status: Active Protocol: Document 12/14/17 09:00 DCW (Rec: 12/14/17 10:16 DCW [id number]) Out-Patient Physical Therapy Visit Information Visit Information Visit Type Treatment Note Visit Note 7/10 G code Visit Start Time 09:00 Visit Stop Time 09:45 Total Visit Minutes 45 Visit Number 28 Evaluation Information Evaluation Date 05/17/17 PT-OP-C Subjective Start: 07/17/17 13:15 Freq: Status: Active Protocol: Document 12/14/17 09:00 DCW (Rec: 12/14/17 10:16 DCW [id number]) OP-PT Subjective Patient Comments Patient Comments I'm in need of a dip. It has been a challenging vertigo week. PT-OP-Q Treatments Start: 07/17/17 13:15 Freq: Status: Active Protocol: Document 12/14/17 09:00 DCW (Rec: 12/14/17 10:16 DCW [id number]) Neuro Re-Education Treatment Balance Activities 6 Details Pin the tail on the donkey Comments Turns with eyes closed Other Activities Nakita manuever Details R Reps/Duration 4 Comments torsional upbeating nystagmus with 5 second latency and then lasts for ~35 seconds. PT-OP-T Assessment and Plan Start: 07/17/17 13:15 Freq: Status: Active Protocol: Document 12/14/17 09:00 DCW (Rec: 12/14/17 10:16 DCW [id number]) Physical Therapy Assessment Goals 2 Impairment Balance Short Term Goal (STG) The patient will turn her head without spinning. NOT MET STG Duration 4 weeks Ride Attendant Goal (LTG) The patient will improve her balance so that she can tolerate modified tandem stance with eyes closed for 30 seconds without LOB. NOT MET LTG Duration 8 weeks 1 Impairment Dizziness Short Term Goal (STG) The patient will display no nystagmus or dizziness with [place]-Hallpike. Previously met, but then symptoms recurred STG Duration 4 weeks Intermediate Goal (LTG) The patient will get into and out of bed without spinning symptoms. Previously met, then symptoms recurred LTG Duration 8 weeks Assessment Summary Assessment Pt has continued active BPPV, despite multiple rounds of CRM treatment. 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 Physical Therapy Plan Frequency and Duration Frequency of Treatment 2x/Week Duration of Treatment 10 weeks Plan of Care Start Date 10/25/17 Plan of Care End Date 01/03/18 Next Visit Focus/Plan Next Note Type Treatment Note Next Visit Plan Vestibular rehabilitation
--- NOTE | 2017-12-27 15:40 | PT.OTN ---
Current Diagnoses Benign paroxysmal vertigo, unspecified ear (12/27/17) Physical Therapy Treatment Note PT-OP-A Visit Information Start: 07/17/17 13:15 Freq: Status: Active Protocol: Document 12/27/17 08:15 AMB (Rec: 12/27/17 15:39 AMB [email or web address]) Out-Patient Physical Therapy Visit Information Visit Information Visit Type Treatment Note Visit Note 8/10 G code Visit Start Time 08:15 Visit Stop Time 09:00 Total Visit Minutes 45 Visit Number 29 Evaluation Information Evaluation Date 05/17/17 PT-OP-C Subjective Start: 07/17/17 13:15 Freq: Status: Active Protocol: Document 12/27/17 08:15 AMB (Rec: 12/27/17 15:39 AMB [email or web address]) OP-PT Subjective Patient Comments Patient Comments Pt reports things had been going pretty well until last week. Her friend asked her what an Nakita manuever was and she went down onto her side and got very spinning, so she couldn't really walk for another 45 minutes. PT-OP-Q Treatments Start: 07/17/17 13:15 Freq: Status: Active Protocol: Document 12/27/17 08:15 AMB (Rec: 12/27/17 15:39 AMB [email or web address]) Neuro Re-Education Treatment Vestibular Rehabilitation X1 Viewing Details thumb Speed slow Other Activities Nakita manuever Details R Reps/Duration 2 Comments torsional upbeating nystagmus with 5 second latency and then lasts for ~35 seconds. PT-OP-T Assessment and Plan Start: 07/17/17 13:15 Freq: Status: Active Protocol: Document 12/27/17 08:15 AMB (Rec: 12/27/17 15:39 AMB [email or web address]) Physical Therapy Assessment Assessment Summary Assessment Pt continues to have active BPPV, will continue vestibular rehab, add back in, and increase to 2x/week to accomodate new treatment after re-eval next week. Physical Therapy Plan Next Visit Focus/Plan Next Note Type Re-Evaluation Next Visit Plan evaluate for back pain per Dr. Griffin referral
--- NOTE | 2018-01-03 16:18 | PT.OTRE ---
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) Malignant neoplasm of upper lobe of right lung (Chronic 02/12/17) Surgical History (Last Updated 09/26/17 @ 10:42 by Sayra Godinez) History of eye surgery (Resolved) History of spinal fusion (Resolved) History of toe surgery (Resolved) Status post hysterectomy with oophorectomy (Resolved) Status post knee surgery (Resolved) Status post rotator cuff repair (Resolved) Provider Visit Care Team Role Provider Type Abiola Griffin MD Family Provider Physician Specialty: Physical Medicine and Rehab Address: [address] [place] [address] Email: Valentin Hernandez MD Attending Provider Physician Primary Care Provider Specialty: Internal Medicine Address: [address] [place] [address] Email: [email or web address] Physical Therapy Re-Evaluation PT-OP-A Visit Information Start: 07/17/17 13:15 Freq: Status: Active Protocol: Document 01/02/18 09:30 AMB (Rec: 01/03/18 15:33 AMB [email or web address]) Out-Patient Physical Therapy Visit Information Visit Information Visit Type Re-Evaluation Visit Note 03/28 G code Visit Start Time 09:30 Visit Stop Time 10:15 Total Visit Minutes 45 Visit Number 30 PT-OP-B Current Condition Start: 01/02/18 07:52 Freq: Status: Active Protocol: Document 01/02/18 09:30 AMB (Rec: 01/02/18 09:50 AMB [id number]) Current Condition History of Current Condition History of Current Condition Back pain, L leg pain for a few months. Trying to turn in bed, external rotation of the hip, with bilateral groin pain. While moving, pt feels good, but feels afterwards gets pain. Extended standing, cooking in the kitchen increases pain. Current pain is 6/10. Tingling in the left leg down the front of the leg . PT-OP-C Subjective Start: 07/17/17 13:15 Freq: Status: Active Protocol: Document 01/02/18 09:30 AMB (Rec: 01/03/18 15:33 AMB [email or web address]) OP-PT Subjective Patient Comments Patient Comments Pt is doing well with dizziness this week, but back pain is a 6/10. PT-OP-J Posture/Palpation/Skin Start: 01/02/18 07:52 Freq: Status: Active Protocol: Document 01/02/18 09:30 AMB (Rec: 01/03/18 15:54 AMB [email or web address]) Posture Evaluation Comments Posture Comments Increased lumbar lordosis and thoracic kyphosis. PT-OP-K Range of Motion Start: 01/02/18 07:52 Freq: Status: Active Protocol: Document 01/02/18 09:30 AMB (Rec: 01/03/18 15:54 AMB [email or web address]) Lumbar Spine Range of Motion Lumbar Spine Active Degrees Testing Position standing Flexion 40 Extension 10 Lateral Flexion Left 10 Lateral Flexion Right 10 PT-OP-M Strength Start: 01/02/18 07:52 Freq: Status: Active Protocol: Document 01/02/18 09:30 AMB (Rec: 01/03/18 15:54 AMB [email or web address]) Hip Strength Hip Manual Muscle Testing Right Flexion (L2) 4+ Good+ Extension (S1) 4+ Good+ Abduction 4+ Good+ Left Flexion (L2) 4 Good Extension (S1) 4+ Good+ Abduction 4+ Good+ Knee Strength Knee Manual Muscle Testing Right Flexion (S2) 5 Normal Extension (L3) 5 Normal Left Flexion (S2) 5 Normal Extension (L3) 5 Normal Ankle/Foot Strength Ankle and Foot Manual Muscle Testing Right Dorsiflexion (L4) 4+ Good+ Plantarflexion (S1) 4+ Good+ Left Dorsiflexion (L4) 4+ Good+ Plantarflexion (S1) 4+ Good+ PT-OP-Q Treatments Start: 07/17/17 13:15 Freq: Status: Active Protocol: Document 12/27/17 08:15 AMB (Rec: 12/27/17 15:39 AMB [email or web address]) Neuro Re-Education Treatment Vestibular Rehabilitation X1 Viewing Details thumb Speed slow Other Activities Nakita kuhn Details R Reps/Duration 2 Comments torsional upbeating nystagmus with 5 second latency and then lasts for ~35 seconds. PT-OP-T Assessment and Plan Start: 07/17/17 13:15 Freq: Status: Active Protocol: Document 01/02/18 09:30 AMB (Rec: 01/03/18 16:09 AMB [email or web address]) Physical Therapy Assessment Goals Four Impairment ADLs Short Term Goal (STG) The patient will stand for 30 minutes to cook's assistant without increasing her back pain. STG Duration 4 weeks Fdc Goal (LTG) The patient will roll over in bed without pain. LTG Duration 8 weeks Three Impairment Pain Short Term Goal (STG) The patient will be independent with a HEP for core stability. STG Duration 4 weeks Fdc Goal (LTG) The patient will play golf for 9 holes with 4/10 pain or less. LTG Duration 8 weeks 2 Impairment Balance Short Term Goal (STG) The patient will turn her head without spinning. NOT MET STG Duration 4 weeks Fdc Goal (LTG) The patient will improve her balance so that she can tolerate modified tandem stance with eyes closed for 30 seconds without LOB. NOT MET LTG Duration 8 weeks 1 Impairment Dizziness Short Term Goal (STG) The patient will display no nystagmus or dizziness with [place]-Hallpike. Previously met, but then symptoms recurred STG Duration 4 weeks Air Table Operator Goal (LTG) The patient will get into and out of bed without spinning symptoms. Previously met, then symptoms recurred LTG Duration 8 weeks Assessment Summary Assessment The patient will need extensive education in body mechanics, as she would like to continue golfing and twisting can irritate her nerve symptoms. She also has difficulty engaging her core with functional activities, and will also benefit from education in nerve pain reduction techniques and an appropriate exercise program. Physical Therapy Plan Frequency and Duration Frequency of Treatment 2x/Week Duration of Treatment 8 weeks Plan of Care Start Date 01/02/18 Plan of Care End Date 02/27/18 Next Visit Focus/Plan Next Note Type Treatment Note Next Visit Plan Alternating vestibular rehab and back pain rehab.
--- NOTE | 2018-01-03 16:19 | PT.OPPOC ---
Current Diagnoses Benign paroxysmal vertigo, unspecified ear (01/02/18) Intervertebral disc disorders with radiculopathy, lumbosacral region (01/02/18) Provider Visit Care Team Role Provider Type Abiola Griffin MD Family Provider Physician Specialty: Physical Medicine and Rehab Address: [address] [place] [address], [id number] Email: Valentin Hernandez MD Attending Provider Physician Primary Care Provider Specialty: Internal Medicine Address: [address] [place] [address], [id number] Email: [email or web address] Plan Of Care PT-OP-T Assessment and Plan Start: 07/17/17 13:15 Freq: Status: Active Protocol: Document 01/02/18 09:30 AMB (Rec: 01/03/18 16:09 AMB [email or web address]) Physical Therapy Assessment Goals Four Impairment ADLs Short Term Goal (STG) The patient will stand for 30 minutes to griddle cook without increasing her back pain. STG Duration 4 weeks Mcfp Goal (LTG) The patient will roll over in bed without pain. LTG Duration 8 weeks Three Impairment Pain Short Term Goal (STG) The patient will be independent with a HEP for core stability. STG Duration 4 weeks Semiconductor Wafers Tester Goal (LTG) The patient will play golf for 9 holes with 4/10 pain or less. LTG Duration 8 weeks 2 Impairment Balance Short Term Goal (STG) The patient will turn her head without spinning. NOT MET STG Duration 4 weeks Mcfp Goal (LTG) The patient will improve her balance so that she can tolerate modified tandem stance with eyes closed for 30 seconds without LOB. NOT MET LTG Duration 8 weeks 1 Impairment Dizziness Short Term Goal (STG) The patient will display no nystagmus or dizziness with [place]-Hallpike. Previously met, but then symptoms recurred STG Duration 4 weeks Mcfp Goal (LTG) The patient will get into and out of bed without spinning symptoms. Previously met, then symptoms recurred LTG Duration 8 weeks Assessment Summary Assessment The patient will need extensive education in body mechanics, as she would like to continue golfing and twisting can irritate her nerve symptoms. She also has difficulty engaging her core with functional activities, and will also benefit from education in nerve pain reduction techniques and an appropriate exercise program. Physical Therapy Plan Frequency and Duration Frequency of Treatment 2x/Week Duration of Treatment 8 weeks Plan of Care Start Date 01/02/18 Plan of Care End Date 02/27/18 Next Visit Focus/Plan Next Note Type Treatment Note Next Visit Plan Alternating vestibular rehab and back pain rehab. Plan of Care Dates Plan of Care Start Date 01/02/18 Plan of Care End Date 02/27/18 Please Sign and Return: I have reviewed this Plan of Care and certify that the skilled therapy services above are required to meet the patient?s needs. Physician Signature Date Printed Name and Credentials Clinical Instructor Signature Printed Name and Credentials
--- NOTE | 2018-01-04 15:22 | PT.OTN ---
Current Diagnoses Benign paroxysmal vertigo, unspecified ear (01/04/18) Physical Therapy Treatment Note PT-OP-A Visit Information Start: 07/17/17 13:15 Freq: Status: Active Protocol: Document 01/04/18 08:15 AMB (Rec: 01/04/18 15:18 AMB [email or web address]) Out-Patient Physical Therapy Visit Information Visit Information Visit Type Treatment Note Visit Note 2/10 G code Visit Start Time 08:15 Visit Stop Time 09:00 Total Visit Minutes 45 Visit Number 31 Evaluation Information Evaluation Date 05/17/17 PT-OP-B Current Condition Start: 01/02/18 07:52 Freq: Status: Active Protocol: Document 01/02/18 09:30 AMB (Rec: 01/02/18 09:50 AMB [id number]) Current Condition History of Current Condition History of Current Condition Back pain, L leg pain for a few months. Trying to turn in bed, external rotation of the hip, with bilateral groin pain. While moving, pt feels good, but feels afterwards gets pain. Extended standing, cooking in the kitchen increases pain. Current pain is 6/10. Tingling in the left leg down the front of the leg . PT-OP-C Subjective Start: 07/17/17 13:15 Freq: Status: Active Protocol: Document 01/04/18 08:15 AMB (Rec: 01/04/18 15:18 AMB [email or web address]) OP-PT Subjective Patient Comments Patient Comments Dizziness back today. Fuzzy L leg continues. PT-OP-J Posture/Palpation/Skin Start: 01/02/18 07:52 Freq: Status: Active Protocol: Document 01/02/18 09:30 AMB (Rec: 01/03/18 15:54 AMB [email or web address]) Posture Evaluation Comments Posture Comments Increased lumbar lordosis and thoracic kyphosis. PT-OP-K Range of Motion Start: 01/02/18 07:52 Freq: Status: Active Protocol: Document 01/02/18 09:30 AMB (Rec: 01/03/18 15:54 AMB [email or web address]) Lumbar Spine Range of Motion Lumbar Spine Active Degrees Testing Position standing Flexion 40 Extension 10 Lateral Flexion Left 10 Lateral Flexion Right 10 PT-OP-M Strength Start: 01/02/18 07:52 Freq: Status: Active Protocol: Document 01/02/18 09:30 AMB (Rec: 01/03/18 15:54 AMB [email or web address]) Hip Strength Hip Manual Muscle Testing Right Flexion (L2) 4+ Good+ Extension (S1) 4+ Good+ Abduction 4+ Good+ Left Flexion (L2) 4 Good Extension (S1) 4+ Good+ Abduction 4+ Good+ Knee Strength Knee Manual Muscle Testing Right Flexion (S2) 5 Normal Extension (L3) 5 Normal Left Flexion (S2) 5 Normal Extension (L3) 5 Normal Ankle/Foot Strength Ankle and Foot Manual Muscle Testing Right Dorsiflexion (L4) 4+ Good+ Plantarflexion (S1) 4+ Good+ Left Dorsiflexion (L4) 4+ Good+ Plantarflexion (S1) 4+ Good+ PT-OP-Q Treatments Start: 07/17/17 13:15 Freq: Status: Active Protocol: Document 01/04/18 08:15 AMB (Rec: 01/04/18 08:49 AMB [id number]) Therapeutic Exercises Sitting Exercises 2 Sitting Exercise Name piriformis stretch Reps/Minutes 30x2 1 Sitting Exercise Name single knee to chest Reps/Minutes 30x2 Neuro Re-Education Treatment Other Activities Nakita manuever Details R Reps/Duration 2 Comments torsional upbeating nystagmus with 5 second latency and then lasts for ~35 seconds. PT-OP-T Assessment and Plan Start: 07/17/17 13:15 Freq: Status: Active Protocol: Document 01/04/18 08:15 AMB (Rec: 01/04/18 15:18 AMB [email or web address]) Physical Therapy Assessment Assessment Summary Assessment Reiterated post maneuver precautions as pt looked up after first Nakita and was quite dizzy. Pt with more tightness in R hip than in left with stretching. Physical Therapy Plan Next Visit Focus/Plan Next Note Type Treatment Note Next Visit Plan Alternating vestibular rehab and back pain rehab.
--- NOTE | 2018-01-08 16:21 | PT.OTN ---
Current Diagnoses Benign paroxysmal vertigo, unspecified ear (01/08/18) Physical Therapy Treatment Note PT-OP-A Visit Information Start: 07/17/17 13:15 Freq: Status: Active Protocol: Document 01/08/18 09:45 AMB (Rec: 01/08/18 16:21 AMB [email or web address]) Out-Patient Physical Therapy Visit Information Visit Information Visit Type Treatment Note Visit Note 3/10 G code Visit Start Time 09:45 Visit Stop Time 10:30 Total Visit Minutes 45 Visit Number 32 Evaluation Information Evaluation Date 05/17/17 PT-OP-B Current Condition Start: 01/02/18 07:52 Freq: Status: Active Protocol: Document 01/02/18 09:30 AMB (Rec: 01/02/18 09:50 AMB [id number]) Current Condition History of Current Condition History of Current Condition Back pain, L leg pain for a few months. Trying to turn in bed, external rotation of the hip, with bilateral groin pain. While moving, pt feels good, but feels afterwards gets pain. Extended standing, cooking in the kitchen increases pain. Current pain is 6/10. Tingling in the left leg down the front of the leg . PT-OP-C Subjective Start: 07/17/17 13:15 Freq: Status: Active Protocol: Document 01/08/18 09:45 AMB (Rec: 01/08/18 16:21 AMB [email or web address]) OP-PT Subjective Patient Comments Patient Comments Pt is both dizzy and her back hurts today PT-OP-J Posture/Palpation/Skin Start: 01/02/18 07:52 Freq: Status: Active Protocol: Document 01/02/18 09:30 AMB (Rec: 01/03/18 15:54 AMB [email or web address]) Posture Evaluation Comments Posture Comments Increased lumbar lordosis and thoracic kyphosis. PT-OP-K Range of Motion Start: 01/02/18 07:52 Freq: Status: Active Protocol: Document 01/02/18 09:30 AMB (Rec: 01/03/18 15:54 AMB [email or web address]) Lumbar Spine Range of Motion Lumbar Spine Active Degrees Testing Position standing Flexion 40 Extension 10 Lateral Flexion Left 10 Lateral Flexion Right 10 PT-OP-M Strength Start: 01/02/18 07:52 Freq: Status: Active Protocol: Document 01/02/18 09:30 AMB (Rec: 01/03/18 15:54 AMB [email or web address]) Hip Strength Hip Manual Muscle Testing Right Flexion (L2) 4+ Good+ Extension (S1) 4+ Good+ Abduction 4+ Good+ Left Flexion (L2) 4 Good Extension (S1) 4+ Good+ Abduction 4+ Good+ Knee Strength Knee Manual Muscle Testing Right Flexion (S2) 5 Normal Extension (L3) 5 Normal Left Flexion (S2) 5 Normal Extension (L3) 5 Normal Ankle/Foot Strength Ankle and Foot Manual Muscle Testing Right Dorsiflexion (L4) 4+ Good+ Plantarflexion (S1) 4+ Good+ Left Dorsiflexion (L4) 4+ Good+ Plantarflexion (S1) 4+ Good+ PT-OP-Q Treatments Start: 07/17/17 13:15 Freq: Status: Active Protocol: Document 01/08/18 09:45 AMB (Rec: 01/08/18 16:21 AMB [email or web address]) Therapeutic Exercises Supine Exercises 2 Supine Exercise Name trA stab 1 Supine Exercise Name mini bridge Comments with PPT Sitting Exercises 3 Sitting Exercise Name therapy ball balance Reps/Minutes 30x2 2 Sitting Exercise Name piriformis stretch Reps/Minutes 30x2 1 Sitting Exercise Name single knee to chest Reps/Minutes 30x2 Neuro Re-Education Treatment Vestibular Rehabilitation X1 Viewing Details thumb Speed slow Other Activities Nakita manuever Details L Reps/Duration 2 Comments torsional upbeating nystagmus with 5 second latency and then lasts for ~35 seconds. PT-OP-T Assessment and Plan Start: 07/17/17 13:15 Freq: Status: Active Protocol: Document 01/08/18 09:45 AMB (Rec: 01/08/18 16:21 AMB [email or web address]) Physical Therapy Assessment Assessment Summary Assessment Pt did not tolerate supine exercises (increased dizziness ). Pt will need to work on seated and standing core stability. Physical Therapy Plan Frequency and Duration Frequency of Treatment 2x/Week Duration of Treatment 8 weeks Plan of Care Start Date 01/02/18 Plan of Care End Date 02/27/18 Next Visit Focus/Plan Next Note Type Treatment Note Next Visit Plan Alternating vestibular rehab and back pain rehab.
--- NOTE | 2018-01-10 09:13 | PT.OTN ---
Current Diagnoses Benign paroxysmal vertigo, unspecified ear (01/10/18) Physical Therapy Treatment Note PT-OP-A Visit Information Start: 07/17/17 13:15 Freq: Status: Active Protocol: Document 01/10/18 08:15 AMB (Rec: 01/10/18 09:13 AMB [email or web address]) Out-Patient Physical Therapy Visit Information Visit Information Visit Type Treatment Note Visit Note 4/10 G code Visit Start Time 08:15 Visit Stop Time 09:00 Total Visit Minutes 45 Visit Number 33 Evaluation Information Evaluation Date 05/17/17 PT-OP-B Current Condition Start: 01/02/18 07:52 Freq: Status: Active Protocol: Document 01/02/18 09:30 AMB (Rec: 01/02/18 09:50 AMB [id number]) Current Condition History of Current Condition History of Current Condition Back pain, L leg pain for a few months. Trying to turn in bed, external rotation of the hip, with bilateral groin pain. While moving, pt feels good, but feels afterwards gets pain. Extended standing, cooking in the kitchen increases pain. Current pain is 6/10. Tingling in the left leg down the front of the leg . PT-OP-C Subjective Start: 07/17/17 13:15 Freq: Status: Active Protocol: Document 01/10/18 08:15 AMB (Rec: 01/10/18 09:13 AMB [email or web address]) OP-PT Subjective Patient Comments Patient Comments Pt has been a bit more dizzy this week PT-OP-J Posture/Palpation/Skin Start: 01/02/18 07:52 Freq: Status: Active Protocol: Document 01/02/18 09:30 AMB (Rec: 01/03/18 15:54 AMB [email or web address]) Posture Evaluation Comments Posture Comments Increased lumbar lordosis and thoracic kyphosis. PT-OP-K Range of Motion Start: 01/02/18 07:52 Freq: Status: Active Protocol: Document 01/02/18 09:30 AMB (Rec: 01/03/18 15:54 AMB [email or web address]) Lumbar Spine Range of Motion Lumbar Spine Active Degrees Testing Position standing Flexion 40 Extension 10 Lateral Flexion Left 10 Lateral Flexion Right 10 PT-OP-M Strength Start: 01/02/18 07:52 Freq: Status: Active Protocol: Document 01/02/18 09:30 AMB (Rec: 01/03/18 15:54 AMB [email or web address]) Hip Strength Hip Manual Muscle Testing Right Flexion (L2) 4+ Good+ Extension (S1) 4+ Good+ Abduction 4+ Good+ Left Flexion (L2) 4 Good Extension (S1) 4+ Good+ Abduction 4+ Good+ Knee Strength Knee Manual Muscle Testing Right Flexion (S2) 5 Normal Extension (L3) 5 Normal Left Flexion (S2) 5 Normal Extension (L3) 5 Normal Ankle/Foot Strength Ankle and Foot Manual Muscle Testing Right Dorsiflexion (L4) 4+ Good+ Plantarflexion (S1) 4+ Good+ Left Dorsiflexion (L4) 4+ Good+ Plantarflexion (S1) 4+ Good+ PT-OP-Q Treatments Start: 07/17/17 13:15 Freq: Status: Active Protocol: Document 01/10/18 08:15 AMB (Rec: 01/10/18 09:13 AMB [email or web address]) Therapeutic Exercises Sitting Exercises 6 Sitting Exercise Name hamstring stretch 5 Sitting Exercise Name TrA stab 4 Sitting Exercise Name pelvic tilt Neuro Re-Education Treatment Vestibular Rehabilitation X1 Viewing Details thumb Speed slow Other Activities Nakita manuever Details R Reps/Duration 2 Comments torsional upbeating nystagmus with 5 second latency and then lasts for ~35 seconds. PT-OP-T Assessment and Plan Start: 07/17/17 13:15 Freq: Status: Active Protocol: Document 01/10/18 08:15 AMB (Rec: 01/10/18 09:13 AMB [email or web address]) Physical Therapy Assessment Assessment Summary Assessment Pt tolerated seated exercises better, better tolerance with Nakita today. Physical Therapy Plan Next Visit Focus/Plan Next Note Type Treatment Note Next Visit Plan Alternating vestibular rehab and back pain rehab.
--- NOTE | 2018-01-16 15:59 | PT.OTN ---
Current Diagnoses Benign paroxysmal vertigo, unspecified ear (01/16/18) Physical Therapy Treatment Note PT-OP-A Visit Information Start: 07/17/17 13:15 Freq: Status: Active Protocol: Document 01/16/18 09:45 AMB (Rec: 01/16/18 15:57 AMB [email or web address]) Out-Patient Physical Therapy Visit Information Visit Information Visit Type Treatment Note Visit Note 5/10 G code Visit Start Time 09:45 Visit Stop Time 10:30 Total Visit Minutes 45 Visit Number 34 PT-OP-B Current Condition Start: 01/02/18 07:52 Freq: Status: Active Protocol: Document 01/02/18 09:30 AMB (Rec: 01/02/18 09:50 AMB [id number]) Current Condition History of Current Condition History of Current Condition Back pain, L leg pain for a few months. Trying to turn in bed, external rotation of the hip, with bilateral groin pain. While moving, pt feels good, but feels afterwards gets pain. Extended standing, cooking in the kitchen increases pain. Current pain is 6/10. Tingling in the left leg down the front of the leg . PT-OP-C Subjective Start: 07/17/17 13:15 Freq: Status: Active Protocol: Document 01/16/18 09:45 AMB (Rec: 01/16/18 15:57 AMB [email or web address]) OP-PT Subjective Patient Comments Patient Comments Pt feeling good as far a dizziness, leg is still bothering her. PT-OP-J Posture/Palpation/Skin Start: 01/02/18 07:52 Freq: Status: Active Protocol: Document 01/02/18 09:30 AMB (Rec: 01/03/18 15:54 AMB [email or web address]) Posture Evaluation Comments Posture Comments Increased lumbar lordosis and thoracic kyphosis. PT-OP-K Range of Motion Start: 01/02/18 07:52 Freq: Status: Active Protocol: Document 01/02/18 09:30 AMB (Rec: 01/03/18 15:54 AMB [email or web address]) Lumbar Spine Range of Motion Lumbar Spine Active Degrees Testing Position standing Flexion 40 Extension 10 Lateral Flexion Left 10 Lateral Flexion Right 10 PT-OP-M Strength Start: 01/02/18 07:52 Freq: Status: Active Protocol: Document 01/02/18 09:30 AMB (Rec: 01/03/18 15:54 AMB [email or web address]) Hip Strength Hip Manual Muscle Testing Right Flexion (L2) 4+ Good+ Extension (S1) 4+ Good+ Abduction 4+ Good+ Left Flexion (L2) 4 Good Extension (S1) 4+ Good+ Abduction 4+ Good+ Knee Strength Knee Manual Muscle Testing Right Flexion (S2) 5 Normal Extension (L3) 5 Normal Left Flexion (S2) 5 Normal Extension (L3) 5 Normal Ankle/Foot Strength Ankle and Foot Manual Muscle Testing Right Dorsiflexion (L4) 4+ Good+ Plantarflexion (S1) 4+ Good+ Left Dorsiflexion (L4) 4+ Good+ Plantarflexion (S1) 4+ Good+ PT-OP-Q Treatments Start: 07/17/17 13:15 Freq: Status: Active Protocol: Document 01/16/18 09:45 AMB (Rec: 01/16/18 15:57 AMB [email or web address]) Gym Equipment Cable Column (Body Solid) Leg Curl Resistance 2 plates Reps/Time 10 Leg Extension Resistance 2 plates Reps/Time 10 Hip Adduction Resistance 1 plate Reps/Time 10 Hip Abduction Resistance 1 plate Reps/Time 10 Rows Details 1 plate Reps/Time 10 Therapeutic Exercises Sitting Exercises 6 Sitting Exercise Name hamstring stretch 5 Sitting Exercise Name TrA stab 4 Sitting Exercise Name pelvic tilt Neuro Re-Education Treatment Other Activities [facility] Details R Reps/Duration 1 Comments no nystagmus today PT-OP-T Assessment and Plan Start: 07/17/17 13:15 Freq: Status: Active Protocol: Document 01/16/18 09:45 AMB (Rec: 01/16/18 15:59 AMB [email or web address]) Physical Therapy Assessment Assessment Summary Assessment The patient did well with gym exercise (she is hoping to go to the gym and was wanting instruction on safe exercise). No nystagmus today, but given history we will need to recheck. Physical Therapy Plan Next Visit Focus/Plan Next Note Type Treatment Note Next Visit Plan Alternating vestibular rehab and back pain rehab.
--- NOTE | 2018-01-18 11:20 | PT.OTN ---
Current Diagnoses Benign paroxysmal vertigo, unspecified ear (01/18/18) Physical Therapy Treatment Note PT-OP-A Visit Information Start: 07/17/17 13:15 Freq: Status: Active Protocol: Document 01/18/18 08:15 AMB (Rec: 01/20/18 11:19 AMB [email or web address]) Out-Patient Physical Therapy Visit Information Visit Information Visit Type Treatment Note Visit Note 6/10 G code Visit Start Time 09:45 Visit Stop Time 10:30 Total Visit Minutes 45 Visit Number 35 PT-OP-B Current Condition Start: 01/02/18 07:52 Freq: Status: Active Protocol: Document 01/02/18 09:30 AMB (Rec: 01/02/18 09:50 AMB [id number]) Current Condition History of Current Condition History of Current Condition Back pain, L leg pain for a few months. Trying to turn in bed, external rotation of the hip, with bilateral groin pain. While moving, pt feels good, but feels afterwards gets pain. Extended standing, cooking in the kitchen increases pain. Current pain is 6/10. Tingling in the left leg down the front of the leg . PT-OP-C Subjective Start: 07/17/17 13:15 Freq: Status: Active Protocol: Document 01/18/18 08:15 AMB (Rec: 01/20/18 11:19 AMB [email or web address]) OP-PT Subjective Patient Comments Patient Comments Pt reports increased spinning yesterday. PT-OP-J Posture/Palpation/Skin Start: 01/02/18 07:52 Freq: Status: Active Protocol: Document 01/02/18 09:30 AMB (Rec: 01/03/18 15:54 AMB [email or web address]) Posture Evaluation Comments Posture Comments Increased lumbar lordosis and thoracic kyphosis. PT-OP-K Range of Motion Start: 01/02/18 07:52 Freq: Status: Active Protocol: Document 01/02/18 09:30 AMB (Rec: 01/03/18 15:54 AMB [email or web address]) Lumbar Spine Range of Motion Lumbar Spine Active Degrees Testing Position standing Flexion 40 Extension 10 Lateral Flexion Left 10 Lateral Flexion Right 10 PT-OP-M Strength Start: 01/02/18 07:52 Freq: Status: Active Protocol: Document 01/02/18 09:30 AMB (Rec: 10/18/18 15:54 AMB [email or web address]) Hip Strength Hip Manual Muscle Testing Right Flexion (L2) 4+ Good+ Extension (S1) 4+ Good+ Abduction 4+ Good+ Left Flexion (L2) 4 Good Extension (S1) 4+ Good+ Abduction 4+ Good+ Knee Strength Knee Manual Muscle Testing Right Flexion (S2) 5 Normal Extension (L3) 5 Normal Left Flexion (S2) 5 Normal Extension (L3) 5 Normal Ankle/Foot Strength Ankle and Foot Manual Muscle Testing Right Dorsiflexion (L4) 4+ Good+ Plantarflexion (S1) 4+ Good+ Left Dorsiflexion (L4) 4+ Good+ Plantarflexion (S1) 4+ Good+ PT-OP-Q Treatments Start: 07/17/17 13:15 Freq: Status: Active Protocol: Document 01/18/18 08:15 AMB (Rec: 01/20/18 11:19 AMB [email or web address]) Neuro Re-Education Treatment Vestibular Rehabilitation X1 Viewing Details thumb Speed slow Other Activities Nakita manuever Details L Reps/Duration 2 Comments No nystagmus with R DixHallpike, but rotatory nystagmus with L, and with lying supine, no horizontal nystagmus noted in supine or with roll testing today PT-OP-T Assessment and Plan Start: 07/17/17 13:15 Freq: Status: Active Protocol: Document 01/18/18 08:15 AMB (Rec: 01/20/18 11:19 AMB [email or web address]) Physical Therapy Assessment Assessment Summary Assessment Pt with change in vestibular function today. May need to progress to more central treatment, despite continuing torsional nystagmus. Physical Therapy Plan Next Visit Focus/Plan Next Note Type Treatment Note Next Visit Plan Reassess vestibular function. Continue to progress core stabilization and body mechanics training, avoiding supine positioning.
--- NOTE | 2018-01-22 10:35 | PT.OTN ---
Current Diagnoses Benign paroxysmal vertigo, unspecified ear (01/22/18) Physical Therapy Treatment Note PT-OP-A Visit Information Start: 07/17/17 13:15 Freq: Status: Active Protocol: Document 01/22/18 09:45 AMB (Rec: 01/22/18 09:45 AMB [id number]) Out-Patient Physical Therapy Visit Information Visit Information Visit Type Treatment Note Visit Note 7/10 G code Visit Start Time 09:45 Visit Stop Time 10:30 Total Visit Minutes 45 Visit Number 36 PT-OP-B Current Condition Start: 01/02/18 07:52 Freq: Status: Active Protocol: Document 01/02/18 09:30 AMB (Rec: 01/02/18 09:50 AMB [id number]) Current Condition History of Current Condition History of Current Condition Back pain, L leg pain for a few months. Trying to turn in bed, external rotation of the hip, with bilateral groin pain. While moving, pt feels good, but feels afterwards gets pain. Extended standing, cooking in the kitchen increases pain. Current pain is 6/10. Tingling in the left leg down the front of the leg . PT-OP-C Subjective Start: 07/17/17 13:15 Freq: Status: Active Protocol: Document 01/22/18 09:45 AMB (Rec: 01/22/18 09:45 AMB [id number]) OP-PT Subjective Patient Comments Patient Comments Pt states she is doing ok PT-OP-J Posture/Palpation/Skin Start: 01/02/18 07:52 Freq: Status: Active Protocol: Document 01/02/18 09:30 AMB (Rec: 01/03/18 15:54 AMB [email or web address]) Posture Evaluation Comments Posture Comments Increased lumbar lordosis and thoracic kyphosis. PT-OP-K Range of Motion Start: 01/02/18 07:52 Freq: Status: Active Protocol: Document 01/02/18 09:30 AMB (Rec: 01/03/18 15:54 AMB [email or web address]) Lumbar Spine Range of Motion Lumbar Spine Active Degrees Testing Position standing Flexion 40 Extension 10 Lateral Flexion Left 10 Lateral Flexion Right 10 PT-OP-M Strength Start: 01/02/18 07:52 Freq: Status: Active Protocol: Document 01/02/18 09:30 AMB (Rec: 01/03/18 15:54 AMB [email or web address]) Hip Strength Hip Manual Muscle Testing Right Flexion (L2) 4+ Good+ Extension (S1) 4+ Good+ Abduction 4+ Good+ Left Flexion (L2) 4 Good Extension (S1) 4+ Good+ Abduction 4+ Good+ Knee Strength Knee Manual Muscle Testing Right Flexion (S2) 5 Normal Extension (L3) 5 Normal Left Flexion (S2) 5 Normal Extension (L3) 5 Normal Ankle/Foot Strength Ankle and Foot Manual Muscle Testing Right Dorsiflexion (L4) 4+ Good+ Plantarflexion (S1) 4+ Good+ Left Dorsiflexion (L4) 4+ Good+ Plantarflexion (S1) 4+ Good+ PT-OP-Q Treatments Start: 07/17/17 13:15 Freq: Status: Active Protocol: Document 01/22/18 09:45 AMB (Rec: 01/22/18 10:03 AMB [id number]) Therapeutic Exercises Standing Exercises 2 Standing Exercise Name standing posture Comments avoiding excessived lumbar extension 1 Standing Exercise Name hip flexor stretch Reps/Minutes 30x2 Neuro Re-Education Treatment Vestibular Rehabilitation X1 Viewing Details thumb Speed slow Other Activities Nakita manuever Details R Reps/Duration 2 Comments Nystagmus with R Elyssa Hallpike. PT-OP-T Assessment and Plan Start: 07/17/17 13:15 Freq: Status: Active Protocol: Document 01/22/18 09:45 AMB (Rec: 01/22/18 10:03 AMB [id number]) Physical Therapy Assessment Assessment Summary Assessment Pt back to more her normal of nystagmus in R Story-Hallpike Physical Therapy Plan Next Visit Focus/Plan Next Note Type Treatment Note Next Visit Plan Reassess vestibular function. Continue to progress core stabilization and body mechanics training, avoiding supine positioning.
--- NOTE | 2018-01-24 16:10 | PT.OTN ---
Current Diagnoses Benign paroxysmal vertigo, unspecified ear (01/24/18) Physical Therapy Treatment Note PT-OP-A Visit Information Start: 07/17/17 13:15 Freq: Status: Active Protocol: Document 01/24/18 09:30 AMB (Rec: 01/24/18 16:09 AMB [email or web address]) Out-Patient Physical Therapy Visit Information Visit Information Visit Type Treatment Note Visit Note 8/10 G code Visit Start Time 09:45 Visit Stop Time 10:30 Total Visit Minutes 45 Visit Number 37 Evaluation Information Evaluation Date 05/17/17 PT-OP-B Current Condition Start: 01/02/18 07:52 Freq: Status: Active Protocol: Document 01/02/18 09:30 AMB (Rec: 01/02/18 09:50 AMB [id number]) Current Condition History of Current Condition History of Current Condition Back pain, L leg pain for a few months. Trying to turn in bed, external rotation of the hip, with bilateral groin pain. While moving, pt feels good, but feels afterwards gets pain. Extended standing, cooking in the kitchen increases pain. Current pain is 6/10. Tingling in the left leg down the front of the leg . PT-OP-C Subjective Start: 07/17/17 13:15 Freq: Status: Active Protocol: Document 01/24/18 09:30 AMB (Rec: 01/24/18 16:09 AMB [email or web address]) OP-PT Subjective Patient Comments Patient Comments Pt has more issues with her back and her leg than her dizziness today. PT-OP-J Posture/Palpation/Skin Start: 01/02/18 07:52 Freq: Status: Active Protocol: Document 01/02/18 09:30 AMB (Rec: 01/03/18 15:54 AMB [email or web address]) Posture Evaluation Comments Posture Comments Increased lumbar lordosis and thoracic kyphosis. PT-OP-K Range of Motion Start: 01/02/18 07:52 Freq: Status: Active Protocol: Document 01/02/18 09:30 AMB (Rec: 01/03/18 15:54 AMB [email or web address]) Lumbar Spine Range of Motion Lumbar Spine Active Degrees Testing Position standing Flexion 40 Extension 10 Lateral Flexion Left 10 Lateral Flexion Right 10 PT-OP-M Strength Start: 01/02/18 07:52 Freq: Status: Active Protocol: Document 01/02/18 09:30 AMB (Rec: 01/03/18 15:54 AMB [email or web address]) Hip Strength Hip Manual Muscle Testing Right Flexion (L2) 4+ Good+ Extension (S1) 4+ Good+ Abduction 4+ Good+ Left Flexion (L2) 4 Good Extension (S1) 4+ Good+ Abduction 4+ Good+ Knee Strength Knee Manual Muscle Testing Right Flexion (S2) 5 Normal Extension (L3) 5 Normal Left Flexion (S2) 5 Normal Extension (L3) 5 Normal Ankle/Foot Strength Ankle and Foot Manual Muscle Testing Right Dorsiflexion (L4) 4+ Good+ Plantarflexion (S1) 4+ Good+ Left Dorsiflexion (L4) 4+ Good+ Plantarflexion (S1) 4+ Good+ PT-OP-Q Treatments Start: 07/17/17 13:15 Freq: Status: Active Protocol: Document 01/24/18 09:30 AMB (Rec: 01/24/18 16:09 AMB [email or web address]) Therapeutic Exercises Sitting Exercises 6 Sitting Exercise Name hamstring stretch 5 Sitting Exercise Name TrA stab 4 Sitting Exercise Name pelvic tilt Standing Exercises 3 Standing Exercise Name standing hamstring stretch Reps/Minutes 30x2 2 Standing Exercise Name standing posture Comments avoiding excessived lumbar extension 1 Standing Exercise Name hip flexor stretch Reps/Minutes 30x2 Other Exercises 3 Other Exercise Name cat cow 2 Other Exercise Name quadruped UE ext 1 Other Exercise Name yovanny pose PT-OP-T Assessment and Plan Start: 07/17/17 13:15 Freq: Status: Active Protocol: Document 01/24/18 09:30 AMB (Rec: 01/24/18 16:09 AMB [email or web address]) Physical Therapy Assessment Assessment Summary Assessment Pt continues to need cueing to avoid moving in ways that she knows recreates the pain. Suggested alternate ways to stretch that do not recreate her pain. Physical Therapy Plan Next Visit Focus/Plan Next Note Type Treatment Note Next Visit Plan Progress body mechanics training
--- NOTE | 2018-01-29 09:45 | PT.OTN ---
Current Diagnoses Benign paroxysmal vertigo, unspecified ear (01/29/18) Physical Therapy Treatment Note PT-OP-A Visit Information Start: 07/17/17 13:15 Freq: Status: Active Protocol: Document 01/29/18 09:45 AMB (Rec: 01/30/18 07:23 AMB [email or web address]) Out-Patient Physical Therapy Visit Information Visit Information Visit Type Treatment Note Visit Note 9/10 G code Visit Start Time 09:45 Visit Stop Time 10:30 Total Visit Minutes 45 Visit Number 38 Evaluation Information Evaluation Date 05/17/17 PT-OP-B Current Condition Start: 01/02/18 07:52 Freq: Status: Active Protocol: Document 01/02/18 09:30 AMB (Rec: 01/02/18 09:50 AMB [id number]) Current Condition History of Current Condition History of Current Condition Back pain, L leg pain for a few months. Trying to turn in bed, external rotation of the hip, with bilateral groin pain. While moving, pt feels good, but feels afterwards gets pain. Extended standing, cooking in the kitchen increases pain. Current pain is 6/10. Tingling in the left leg down the front of the leg . PT-OP-C Subjective Start: 07/17/17 13:15 Freq: Status: Active Protocol: Document 01/29/18 09:45 AMB (Rec: 01/30/18 07:24 AMB [email or web address]) OP-PT Subjective Patient Comments Patient Comments Pt was off balance last night but has not been spinning, better awareness of posture reported but back pain and leg fuzzy continue to be present. PT-OP-J Posture/Palpation/Skin Start: 01/02/18 07:52 Freq: Status: Active Protocol: Document 01/02/18 09:30 AMB (Rec: 01/03/18 15:54 AMB [email or web address]) Posture Evaluation Comments Posture Comments Increased lumbar lordosis and thoracic kyphosis. PT-OP-K Range of Motion Start: 01/02/18 07:52 Freq: Status: Active Protocol: Document 01/02/18 09:30 AMB (Rec: 01/03/18 15:54 AMB [email or web address]) Lumbar Spine Range of Motion Lumbar Spine Active Degrees Testing Position standing Flexion 40 Extension 10 Lateral Flexion Left 10 Lateral Flexion Right 10 PT-OP-M Strength Start: 01/02/18 07:52 Freq: Status: Active Protocol: Document 01/02/18 09:30 AMB (Rec: 01/03/18 15:54 AMB [email or web address]) Hip Strength Hip Manual Muscle Testing Right Flexion (L2) 4+ Good+ Extension (S1) 4+ Good+ Abduction 4+ Good+ Left Flexion (L2) 4 Good Extension (S1) 4+ Good+ Abduction 4+ Good+ Knee Strength Knee Manual Muscle Testing Right Flexion (S2) 5 Normal Extension (L3) 5 Normal Left Flexion (S2) 5 Normal Extension (L3) 5 Normal Ankle/Foot Strength Ankle and Foot Manual Muscle Testing Right Dorsiflexion (L4) 4+ Good+ Plantarflexion (S1) 4+ Good+ Left Dorsiflexion (L4) 4+ Good+ Plantarflexion (S1) 4+ Good+ PT-OP-Q Treatments Start: 07/17/17 13:15 Freq: Status: Active Protocol: Document 01/29/18 09:45 AMB (Rec: 01/30/18 07:23 AMB [email or web address]) Neuro Re-Education Treatment Balance Activities 6 Details walking with head turns Comments veering 5 Details turning with eyes closed Comments L and R 4 Comments marching with eyes closed Vestibular Rehabilitation X1 Viewing Details thumb Speed slow Other Activities Nakita manuever Comments no nystagmus with R [place] Hallpike PT-OP-T Assessment and Plan Start: 07/17/17 13:15 Freq: Status: Active Protocol: Document 01/29/18 09:45 AMB (Rec: 01/30/18 07:23 AMB [email or web address]) Physical Therapy Assessment Assessment Summary Assessment Pt continues to need cueing for posture. Better with balance today. Walking with head turns still very difficult. Physical Therapy Plan Next Visit Focus/Plan Next Note Type Treatment Note Next Visit Plan Progress body mechanics training
--- NOTE | 2018-01-31 15:53 | PT.OTN ---
Current Diagnoses Benign paroxysmal vertigo, unspecified ear (01/31/18) Physical Therapy Treatment Note PT-OP-A Visit Information Start: 07/17/17 13:15 Freq: Status: Active Protocol: Document 01/31/18 13:00 AMB (Rec: 01/31/18 13:11 AMB [id number]) Out-Patient Physical Therapy Visit Information Visit Information Visit Type Progress Note Visit Note 03/28 G code Visit Start Time 13:00 Visit Stop Time 13:45 Total Visit Minutes 45 Visit Number 39 PT-OP-B Current Condition Start: 01/02/18 07:52 Freq: Status: Active Protocol: Document 01/02/18 09:30 AMB (Rec: 01/02/18 09:50 AMB [id number]) Current Condition History of Current Condition History of Current Condition Back pain, L leg pain for a few months. Trying to turn in bed, external rotation of the hip, with bilateral groin pain. While moving, pt feels good, but feels afterwards gets pain. Extended standing, cooking in the kitchen increases pain. Current pain is 6/10. Tingling in the left leg down the front of the leg . PT-OP-C Subjective Start: 07/17/17 13:15 Freq: Status: Active Protocol: Document 01/31/18 13:00 AMB (Rec: 01/31/18 13:43 AMB [id number]) OP-PT Subjective Patient Comments Patient Comments Pt continues to notice pain with extended standing. Wooziness continues with head turns. PT-OP-J Posture/Palpation/Skin Start: 01/02/18 07:52 Freq: Status: Active Protocol: Document 01/02/18 09:30 AMB (Rec: 01/03/18 15:54 AMB [email or web address]) Posture Evaluation Comments Posture Comments Increased lumbar lordosis and thoracic kyphosis. PT-OP-K Range of Motion Start: 01/02/18 07:52 Freq: Status: Active Protocol: Document 01/02/18 09:30 AMB (Rec: 01/03/18 15:54 AMB [email or web address]) Lumbar Spine Range of Motion Lumbar Spine Active Degrees Testing Position standing Flexion 40 Extension 10 Lateral Flexion Left 10 Lateral Flexion Right 10 PT-OP-M Strength Start: 01/02/18 07:52 Freq: Status: Active Protocol: Document 01/02/18 09:30 AMB (Rec: 01/03/18 15:54 AMB [email or web address]) Hip Strength Hip Manual Muscle Testing Right Flexion (L2) 4+ Good+ Extension (S1) 4+ Good+ Abduction 4+ Good+ Left Flexion (L2) 4 Good Extension (S1) 4+ Good+ Abduction 4+ Good+ Knee Strength Knee Manual Muscle Testing Right Flexion (S2) 5 Normal Extension (L3) 5 Normal Left Flexion (S2) 5 Normal Extension (L3) 5 Normal Ankle/Foot Strength Ankle and Foot Manual Muscle Testing Right Dorsiflexion (L4) 4+ Good+ Plantarflexion (S1) 4+ Good+ Left Dorsiflexion (L4) 4+ Good+ Plantarflexion (S1) 4+ Good+ PT-OP-Q Treatments Start: 07/17/17 13:15 Freq: Status: Active Protocol: Document 01/31/18 13:00 AMB (Rec: 01/31/18 13:43 AMB [id number]) Therapeutic Exercises Sitting Exercises 6 Sitting Exercise Name hamstring stretch 5 Sitting Exercise Name TrA stab 4 Sitting Exercise Name pelvic tilt 3 Sitting Exercise Name TrA stab may 2 Sitting Exercise Name TrA stab abd Resistance #3 tband Neuro Re-Education Treatment Other Activities Nakita manuever Details R Reps/Duration 1 Comments Nystagmus with R [place] Hallpike. PT-OP-T Assessment and Plan Start: 07/17/17 13:15 Freq: Status: Active Protocol: Document 01/31/18 13:00 AMB (Rec: 01/31/18 15:49 AMB [email or web address]) Physical Therapy Assessment Assessment Summary Assessment The patient had slight nystagmus today with R [place]- Hallpike, so Nakita was performed. Continued education on appropriate body mechanics. Physical Therapy Plan Next Visit Focus/Plan Next Note Type Treatment Note Next Visit Plan Progress body mechanics training
--- NOTE | 2018-02-06 15:33 | PT.OTN ---
Current Diagnoses Benign paroxysmal vertigo, unspecified ear (02/06/18) Physical Therapy Treatment Note PT-OP-A Visit Information Start: 07/17/17 13:15 Freq: Status: Active Protocol: Document 02/06/18 08:15 AMB (Rec: 02/06/18 09:01 AMB [id number]) Out-Patient Physical Therapy Visit Information Visit Information Visit Type Treatment Note Visit Note 2/10 G code Visit Start Time 08:15 Visit Stop Time 09:00 Total Visit Minutes 45 Visit Number 40 Evaluation Information Evaluation Date 05/17/17 PT-OP-B Current Condition Start: 01/02/18 07:52 Freq: Status: Active Protocol: Document 01/02/18 09:30 AMB (Rec: 01/02/18 09:50 AMB [id number]) Current Condition History of Current Condition History of Current Condition Back pain, L leg pain for a few months. Trying to turn in bed, external rotation of the hip, with bilateral groin pain. While moving, pt feels good, but feels afterwards gets pain. Extended standing, cooking in the kitchen increases pain. Current pain is 6/10. Tingling in the left leg down the front of the leg . PT-OP-C Subjective Start: 07/17/17 13:15 Freq: Status: Active Protocol: Document 02/06/18 08:15 AMB (Rec: 02/06/18 09:01 AMB [email or web address]) OP-PT Subjective Patient Comments Patient Comments Pt reports she woke up dizzy today, but otherwise the last week has been going well. PT-OP-J Posture/Palpation/Skin Start: 01/02/18 07:52 Freq: Status: Active Protocol: Document 01/02/18 09:30 AMB (Rec: 01/03/18 15:54 AMB [email or web address]) Posture Evaluation Comments Posture Comments Increased lumbar lordosis and thoracic kyphosis. PT-OP-K Range of Motion Start: 01/02/18 07:52 Freq: Status: Active Protocol: Document 01/02/18 09:30 AMB (Rec: 01/03/18 15:54 AMB [email or web address]) Lumbar Spine Range of Motion Lumbar Spine Active Degrees Testing Position standing Flexion 40 Extension 10 Lateral Flexion Left 10 Lateral Flexion Right 10 PT-OP-M Strength Start: 01/02/18 07:52 Freq: Status: Active Protocol: Document 01/02/18 09:30 AMB (Rec: 01/03/18 15:54 AMB [email or web address]) Hip Strength Hip Manual Muscle Testing Right Flexion (L2) 4+ Good+ Extension (S1) 4+ Good+ Abduction 4+ Good+ Left Flexion (L2) 4 Good Extension (S1) 4+ Good+ Abduction 4+ Good+ Knee Strength Knee Manual Muscle Testing Right Flexion (S2) 5 Normal Extension (L3) 5 Normal Left Flexion (S2) 5 Normal Extension (L3) 5 Normal Ankle/Foot Strength Ankle and Foot Manual Muscle Testing Right Dorsiflexion (L4) 4+ Good+ Plantarflexion (S1) 4+ Good+ Left Dorsiflexion (L4) 4+ Good+ Plantarflexion (S1) 4+ Good+ PT-OP-Q Treatments Start: 07/17/17 13:15 Freq: Status: Active Protocol: Document 02/06/18 08:15 AMB (Rec: 02/06/18 15:32 AMB [email or web address]) Therapeutic Exercises Sitting Exercises 6 Sitting Exercise Name hamstring stretch 4 Sitting Exercise Name pelvic tilt Standing Exercises 1 Standing Exercise Name hip flexor stretch Reps/Minutes 30x2 Other Exercises 3 Other Exercise Name cat cow 1 Other Exercise Name yovanny pose Neuro Re-Education Treatment Other Activities Nakita manuever Details R Reps/Duration 2 Comments Nystagmus with R [place] Hallpike. PT-OP-T Assessment and Plan Start: 07/17/17 13:15 Freq: Status: Active Protocol: Document 02/06/18 08:15 AMB (Rec: 02/06/18 09:01 AMB [id number]) Physical Therapy Assessment Assessment Summary Assessment Pt with more nystagmus today with R DixHallpike. Reinforces post maneuver precautions. Physical Therapy Plan Next Visit Focus/Plan Next Note Type Treatment Note Next Visit Plan Progress body mechanics training, continue vestibular training
--- NOTE | 2018-02-06 15:34 | PT.OTN ---
Current Diagnoses Benign paroxysmal vertigo, unspecified ear (02/06/18) Physical Therapy Treatment Note PT-OP-A Visit Information Start: 07/17/17 13:15 Freq: Status: Active Protocol: Document 02/06/18 08:15 AMB (Rec: 02/06/18 09:01 AMB [id number]) Out-Patient Physical Therapy Visit Information Visit Information Visit Type Treatment Note Visit Note 2/10 G code Visit Start Time 08:15 Visit Stop Time 09:00 Total Visit Minutes 45 Visit Number 40 Evaluation Information Evaluation Date 05/17/17 PT-OP-B Current Condition Start: 01/02/18 07:52 Freq: Status: Active Protocol: Document 01/02/18 09:30 AMB (Rec: 01/02/18 09:50 AMB [id number]) Current Condition History of Current Condition History of Current Condition Back pain, L leg pain for a few months. Trying to turn in bed, external rotation of the hip, with bilateral groin pain. While moving, pt feels good, but feels afterwards gets pain. Extended standing, cooking in the kitchen increases pain. Current pain is 6/10. Tingling in the left leg down the front of the leg . PT-OP-C Subjective Start: 07/17/17 13:15 Freq: Status: Active Protocol: Document 02/06/18 08:15 AMB (Rec: 02/06/18 09:01 AMB [id number]) OP-PT Subjective Patient Comments Patient Comments Pt reports she woke up dizzy today, but otherwise the last week has been going well. PT-OP-J Posture/Palpation/Skin Start: 01/02/18 07:52 Freq: Status: Active Protocol: Document 01/02/18 09:30 AMB (Rec: 01/03/18 15:54 AMB [email or web address]) Posture Evaluation Comments Posture Comments Increased lumbar lordosis and thoracic kyphosis. PT-OP-K Range of Motion Start: 01/02/18 07:52 Freq: Status: Active Protocol: Document 01/02/18 09:30 AMB (Rec: 01/03/18 15:54 AMB [email or web address]) Lumbar Spine Range of Motion Lumbar Spine Active Degrees Testing Position standing Flexion 40 Extension 10 Lateral Flexion Left 10 Lateral Flexion Right 10 PT-OP-M Strength Start: 01/02/18 07:52 Freq: Status: Active Protocol: Document 01/02/18 09:30 AMB (Rec: 01/03/18 15:54 AMB [email or web address]) Hip Strength Hip Manual Muscle Testing Right Flexion (L2) 4+ Good+ Extension (S1) 4+ Good+ Abduction 4+ Good+ Left Flexion (L2) 4 Good Extension (S1) 4+ Good+ Abduction 4+ Good+ Knee Strength Knee Manual Muscle Testing Right Flexion (S2) 5 Normal Extension (L3) 5 Normal Left Flexion (S2) 5 Normal Extension (L3) 5 Normal Ankle/Foot Strength Ankle and Foot Manual Muscle Testing Right Dorsiflexion (L4) 4+ Good+ Plantarflexion (S1) 4+ Good+ Left Dorsiflexion (L4) 4+ Good+ Plantarflexion (S1) 4+ Good+ PT-OP-Q Treatments Start: 07/17/17 13:15 Freq: Status: Active Protocol: Document 02/06/18 08:15 AMB (Rec: 02/06/18 15:32 AMB [email or web address]) Therapeutic Exercises Sitting Exercises 6 Sitting Exercise Name hamstring stretch 4 Sitting Exercise Name pelvic tilt Standing Exercises 1 Standing Exercise Name hip flexor stretch Reps/Minutes 30x2 Other Exercises 3 Other Exercise Name cat cow 1 Other Exercise Name yovanny pose Neuro Re-Education Treatment Other Activities Nakita manuever Details R Reps/Duration 2 Comments Nystagmus with R [place] Hallpike. PT-OP-T Assessment and Plan Start: 07/17/17 13:15 Freq: Status: Active Protocol: Document 02/06/18 08:15 AMB (Rec: 02/06/18 09:01 AMB [id number]) Physical Therapy Assessment Assessment Summary Assessment Pt with more nystagmus today with R DixHallpike. Reinforces post maneuver precautions. Physical Therapy Plan Next Visit Focus/Plan Next Note Type Treatment Note Next Visit Plan Progress body mechanics training, continue vestibular training
--- NOTE | 2018-02-12 16:19 | PT.OTN ---
Current Diagnoses Benign paroxysmal vertigo, unspecified ear (02/12/18) Physical Therapy Treatment Note PT-OP-A Visit Information Start: 07/17/17 13:15 Freq: Status: Active Protocol: Document 02/12/18 09:30 AMB (Rec: 02/12/18 16:18 AMB [email or web address]) Out-Patient Physical Therapy Visit Information Visit Information Visit Type Treatment Note Visit Note 3/10 G code Visit Start Time 09:30 Visit Stop Time 10:15 Total Visit Minutes 45 Visit Number 40 Evaluation Information Evaluation Date 05/17/17 PT-OP-B Current Condition Start: 01/02/18 07:52 Freq: Status: Active Protocol: Document 01/02/18 09:30 AMB (Rec: 01/02/18 09:50 AMB [id number]) Current Condition History of Current Condition History of Current Condition Back pain, L leg pain for a few months. Trying to turn in bed, external rotation of the hip, with bilateral groin pain. While moving, pt feels good, but feels afterwards gets pain. Extended standing, cooking in the kitchen increases pain. Current pain is 6/10. Tingling in the left leg down the front of the leg . PT-OP-C Subjective Start: 07/17/17 13:15 Freq: Status: Active Protocol: Document 02/12/18 09:30 AMB (Rec: 02/12/18 16:18 AMB [email or web address]) OP-PT Subjective Patient Comments Patient Comments Pt has been dizzy, pushed herself over Thanksgiving. PT-OP-J Posture/Palpation/Skin Start: 01/02/18 07:52 Freq: Status: Active Protocol: Document 01/02/18 09:30 AMB (Rec: 01/03/18 15:54 AMB [email or web address]) Posture Evaluation Comments Posture Comments Increased lumbar lordosis and thoracic kyphosis. PT-OP-K Range of Motion Start: 01/02/18 07:52 Freq: Status: Active Protocol: Document 01/02/18 09:30 AMB (Rec: 01/03/18 15:54 AMB [email or web address]) Lumbar Spine Range of Motion Lumbar Spine Active Degrees Testing Position standing Flexion 40 Extension 10 Lateral Flexion Left 10 Lateral Flexion Right 10 PT-OP-M Strength Start: 01/02/18 07:52 Freq: Status: Active Protocol: Document 01/02/18 09:30 AMB (Rec: 01/03/18 15:54 AMB [email or web address]) Hip Strength Hip Manual Muscle Testing Right Flexion (L2) 4+ Good+ Extension (S1) 4+ Good+ Abduction 4+ Good+ Left Flexion (L2) 4 Good Extension (S1) 4+ Good+ Abduction 4+ Good+ Knee Strength Knee Manual Muscle Testing Right Flexion (S2) 5 Normal Extension (L3) 5 Normal Left Flexion (S2) 5 Normal Extension (L3) 5 Normal Ankle/Foot Strength Ankle and Foot Manual Muscle Testing Right Dorsiflexion (L4) 4+ Good+ Plantarflexion (S1) 4+ Good+ Left Dorsiflexion (L4) 4+ Good+ Plantarflexion (S1) 4+ Good+ PT-OP-Q Treatments Start: 07/17/17 13:15 Freq: Status: Active Protocol: Document 02/12/18 09:30 AMB (Rec: 02/12/18 16:18 AMB [email or web address]) Therapeutic Exercises Sitting Exercises 6 Sitting Exercise Name hamstring stretch 4 Sitting Exercise Name pelvic tilt Other Exercises 4 Other Exercise Name rolling pin instead of IT band stretch Reps/Minutes 30x2 Neuro Re-Education Treatment Balance Activities 6 Details walking with head turns Comments veering Vestibular Rehabilitation X1 Viewing Details thumb Speed slow Other Activities Nakita manuever Details R Reps/Duration 2 Comments Nystagmus with R [place] Hallpike. PT-OP-T Assessment and Plan Start: 07/17/17 13:15 Freq: Status: Active Protocol: Document 02/12/18 09:30 AMB (Rec: 02/12/18 16:18 AMB [email or web address]) Physical Therapy Assessment Assessment Summary Assessment Pt did well with R Nakita, Rolling pin seemed to help leg pain. Physical Therapy Plan Next Visit Focus/Plan Next Note Type Treatment Note Next Visit Plan Progress body mechanics training, continue vestibular training
--- NOTE | 2018-02-14 10:53 | PT.OTN ---
Current Diagnoses Benign paroxysmal vertigo, unspecified ear (02/14/18) Physical Therapy Treatment Note PT-OP-A Visit Information Start: 07/17/17 13:15 Freq: Status: Active Protocol: Document 02/14/18 09:45 AMB (Rec: 02/14/18 10:09 AMB [id number]) Out-Patient Physical Therapy Visit Information Visit Information Visit Type Treatment Note Visit Note 4/10 G code Visit Start Time 09:45 Visit Stop Time 10:30 Total Visit Minutes 45 Visit Number 42 PT-OP-B Current Condition Start: 01/02/18 07:52 Freq: Status: Active Protocol: Document 01/02/18 09:30 AMB (Rec: 01/02/18 09:50 AMB [id number]) Current Condition History of Current Condition History of Current Condition Back pain, L leg pain for a few months. Trying to turn in bed, external rotation of the hip, with bilateral groin pain. While moving, pt feels good, but feels afterwards gets pain. Extended standing, cooking in the kitchen increases pain. Current pain is 6/10. Tingling in the left leg down the front of the leg . PT-OP-C Subjective Start: 07/17/17 13:15 Freq: Status: Active Protocol: Document 02/14/18 09:45 AMB (Rec: 02/14/18 10:09 AMB [id number]) OP-PT Subjective Patient Comments Patient Comments Pt feeling better today, back pain is present. PT-OP-J Posture/Palpation/Skin Start: 01/02/18 07:52 Freq: Status: Active Protocol: Document 01/02/18 09:30 AMB (Rec: 01/03/18 15:54 AMB [email or web address]) Posture Evaluation Comments Posture Comments Increased lumbar lordosis and thoracic kyphosis. PT-OP-K Range of Motion Start: 01/02/18 07:52 Freq: Status: Active Protocol: Document 01/02/18 09:30 AMB (Rec: 01/03/18 15:54 AMB [email or web address]) Lumbar Spine Range of Motion Lumbar Spine Active Degrees Testing Position standing Flexion 40 Extension 10 Lateral Flexion Left 10 Lateral Flexion Right 10 PT-OP-M Strength Start: 01/02/18 07:52 Freq: Status: Active Protocol: Document 01/02/18 09:30 AMB (Rec: 01/03/18 15:54 AMB [email or web address]) Hip Strength Hip Manual Muscle Testing Right Flexion (L2) 4+ Good+ Extension (S1) 4+ Good+ Abduction 4+ Good+ Left Flexion (L2) 4 Good Extension (S1) 4+ Good+ Abduction 4+ Good+ Knee Strength Knee Manual Muscle Testing Right Flexion (S2) 5 Normal Extension (L3) 5 Normal Left Flexion (S2) 5 Normal Extension (L3) 5 Normal Ankle/Foot Strength Ankle and Foot Manual Muscle Testing Right Dorsiflexion (L4) 4+ Good+ Plantarflexion (S1) 4+ Good+ Left Dorsiflexion (L4) 4+ Good+ Plantarflexion (S1) 4+ Good+ PT-OP-Q Treatments Start: 07/17/17 13:15 Freq: Status: Active Protocol: Document 02/14/18 09:45 AMB (Rec: 02/14/18 10:53 AMB [email or web address]) Neuro Re-Education Treatment Vestibular Rehabilitation X1 Viewing Details thumb Speed slow Other Activities Nakita manuever Details R Reps/Duration 1 Comments Nystagmus with R [place] Hallpike. Instructed pt in safe HEP with written handout. PT-OP-T Assessment and Plan Start: 07/17/17 13:15 Freq: Status: Active Protocol: Document 02/14/18 09:45 AMB (Rec: 02/14/18 10:53 AMB [email or web address]) Physical Therapy Assessment Assessment Summary Assessment Patient is hoping to decrease frequency of PT to 1x/month. She was able to safely perform self Nakita today and given written handout. PT to call if she has a huge flare up. Back is about the same. Physical Therapy Plan Next Visit Focus/Plan Next Note Type Progress Note Next Visit Plan Follow up in 1 month, reasses Cecil-Hallpike, make sure pt is continuing with VOR HEP. Follow up on back pain, nerve pain in leg.
--- NOTE | 2018-03-15 12:00 | PT.OTN ---
Current Diagnoses Benign paroxysmal vertigo, unspecified ear (03/15/18) Physical Therapy Treatment Note PT-OP-A Visit Information Start: 07/17/17 13:15 Freq: Status: Active Protocol: Document 03/15/18 08:15 AMB (Rec: 03/21/18 08:26 AMB [id number]) Out-Patient Physical Therapy Visit Information Visit Information Visit Type Progress Note Visit Note 03/28 G code Visit Start Time 08:15 Visit Stop Time 09:00 Total Visit Minutes 45 Visit Number 43 PT-OP-B Current Condition Start: 01/02/18 07:52 Freq: Status: Active Protocol: Document 01/02/18 09:30 AMB (Rec: 01/02/18 09:50 AMB [id number]) Current Condition History of Current Condition History of Current Condition Back pain, L leg pain for a few months. Trying to turn in bed, external rotation of the hip, with bilateral groin pain. While moving, pt feels good, but feels afterwards gets pain. Extended standing, cooking in the kitchen increases pain. Current pain is 6/10. Tingling in the left leg down the front of the leg . PT-OP-C Subjective Start: 07/17/17 13:15 Freq: Status: Active Protocol: Document 03/15/18 08:15 AMB (Rec: 03/21/18 08:26 AMB [id number]) OP-PT Subjective Patient Comments Patient Comments Not as dizzy, back pain still there PT-OP-J Posture/Palpation/Skin Start: 01/02/18 07:52 Freq: Status: Active Protocol: Document 01/02/18 09:30 AMB (Rec: 01/03/18 15:54 AMB [email or web address]) Posture Evaluation Comments Posture Comments Increased lumbar lordosis and thoracic kyphosis. PT-OP-K Range of Motion Start: 01/02/18 07:52 Freq: Status: Active Protocol: Document 01/02/18 09:30 AMB (Rec: 01/03/18 15:54 AMB [email or web address]) Lumbar Spine Range of Motion Lumbar Spine Active Degrees Testing Position standing Flexion 40 Extension 10 Lateral Flexion Left 10 Lateral Flexion Right 10 PT-OP-M Strength Start: 01/02/18 07:52 Freq: Status: Active Protocol: Document 01/02/18 09:30 AMB (Rec: 01/03/18 15:54 AMB [email or web address]) Hip Strength Hip Manual Muscle Testing Right Flexion (L2) 4+ Good+ Extension (S1) 4+ Good+ Abduction 4+ Good+ Left Flexion (L2) 4 Good Extension (S1) 4+ Good+ Abduction 4+ Good+ Knee Strength Knee Manual Muscle Testing Right Flexion (S2) 5 Normal Extension (L3) 5 Normal Left Flexion (S2) 5 Normal Extension (L3) 5 Normal Ankle/Foot Strength Ankle and Foot Manual Muscle Testing Right Dorsiflexion (L4) 4+ Good+ Plantarflexion (S1) 4+ Good+ Left Dorsiflexion (L4) 4+ Good+ Plantarflexion (S1) 4+ Good+ PT-OP-Q Treatments Start: 07/17/17 13:15 Freq: Status: Active Protocol: Document 03/15/18 08:15 AMB (Rec: 03/21/18 09:20 AMB [email or web address]) Therapeutic Exercises Standing Exercises 1 Standing Exercise Name hip flexor stretch Reps/Minutes 30x2 Neuro Re-Education Treatment Vestibular Rehabilitation X1 Viewing Details thumb Speed faster Other Activities Nakita manuever Details R Reps/Duration 1 Comments No nystagmus with R/L Elyss[place] Hallpike or supine roll test PT-OP-T Assessment and Plan Start: 07/17/17 13:15 Freq: Status: Active Protocol: Document 03/15/18 08:15 AMB (Rec: 03/15/18 09:33 AMB [id number]) Physical Therapy Assessment Goals Four Impairment ADLs Short Term Goal (STG) 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 NOT MET STG Duration 4 weeks Technical Services Librarian Goal (LTG) The patient will roll over in bed without pain. PROGRESS MADE LTG Duration 8 weeks Three Impairment Pain Short Term Goal (STG) The patient will be independent with a HEP for core stability. PROGRESS MADE STG Duration 4 weeks Mcc Goal (LTG) The patient will play golf for 9 holes with 4/10 pain or less. NOT MET LTG Duration 8 weeks 2 Impairment Balance Short Term Goal (STG) The patient will turn her head without spinning. PROGRESS MADE, can do with slow movement but not fast. STG Duration 4 weeks Technical Services Librarian Goal (LTG) The patient will improve her balance so that she can tolerate modified tandem stance with eyes closed for 30 seconds without LOB. NOT MET LTG Duration 8 weeks 1 Impairment Dizziness Short Term Goal (STG) The patient will display no nystagmus or dizziness with [place]-Hallpike. STG Duration MET Mcc Goal (LTG) The patient will get into and out of bed without spinning symptoms. MET LTG Duration MET Assessment Summary Assessment The patient is doing better with her dizziness. She has done the self Nakita twice in the last month. She needs to increase the speed of her VOR retraining to progress more. Her back and leg pain are about the same and not progressed much, although she needs continued cues for body mechanics training. Physical Therapy Plan Frequency and Duration Frequency of Treatment 2x/month Duration of Treatment 12 weeks Plan of Care Start Date 03/15/18 Plan of Care End Date 06/07/18 Therapeutic Interventions Therapeutic Interventions Balance Training Canalithic Repositioning Gait Training Home Exercise Program Neuromuscular Re-education Self-Care/Home Management Therapeutic Activities Therapeutic Exercises Vestibular Rehabilitation Next Visit Focus/Plan Next Note Type Treatment Note Next Visit Plan Follow up in 1 month, reasses Elyssa-Hallpike, make sure pt is continuing with VOR HEP. Follow up on back pain, nerve pain in leg.
--- NOTE | 2018-03-15 12:00 | PT.OPPOC ---
Current Diagnoses Benign paroxysmal vertigo, unspecified ear (03/15/18) Provider Visit Care Team Role Provider Type Abiola Griffin MD Family Provider Physician Specialty: Physical Medicine and Rehab Address: [address] [place], [address] Email: Valentin Hernandez MD Attending Provider Physician Primary Care Provider Specialty: Internal Medicine Address: [address] [place] [address], [id number] Email: [email or web address] Plan Of Care PT-OP-T Assessment and Plan Start: 07/17/17 13:15 Freq: Status: Active Protocol: Document 03/15/18 08:15 AMB (Rec: 03/15/18 09:33 AMB [id number]) Physical Therapy Assessment Goals Four Impairment ADLs Short Term Goal (STG) 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 NOT MET STG Duration 4 weeks Wheat Farmer Goal (LTG) The patient will roll over in bed without pain. PROGRESS MADE LTG Duration 8 weeks Three Impairment Pain Short Term Goal (STG) The patient will be independent with a HEP for core stability. PROGRESS MADE STG Duration 4 weeks Wheat Farmer Goal (LTG) The patient will play golf for 9 holes with 4/10 pain or less. NOT MET LTG Duration 8 weeks 2 Impairment Balance Short Term Goal (STG) The patient will turn her head without spinning. PROGRESS MADE, can do with slow movement but not fast. STG Duration 4 weeks Group Home Goal (LTG) The patient will improve her balance so that she can tolerate modified tandem stance with eyes closed for 30 seconds without LOB. NOT MET LTG Duration 8 weeks 1 Impairment Dizziness Short Term Goal (STG) The patient will display no nystagmus or dizziness with Elyssa-Hallpike. STG Duration MET Group Home Goal (LTG) The patient will get into and out of bed without spinning symptoms. MET LTG Duration MET Assessment Summary Assessment The patient is doing better with her dizziness. She has done the self Nakita twice in the last month. She needs to increase the speed of her VOR retraining to progress more. Her back and leg pain are about the same and not progressed much, although she needs continued cues for body mechanics training. Physical Therapy Plan Frequency and Duration Frequency of Treatment 2x/month Duration of Treatment 12 weeks Plan of Care Start Date 03/15/18 Plan of Care End Date 06/07/18 Therapeutic Interventions Therapeutic Interventions Balance Training Canalithic Repositioning Gait Training Home Exercise Program Neuromuscular Re-education Self-Care/Home Management Therapeutic Activities Therapeutic Exercises Vestibular Rehabilitation Next Visit Focus/Plan Next Note Type Treatment Note Next Visit Plan Follow up in 1 month, carlos Tomas, make sure pt is continuing with VOR HEP. Follow up on back pain, nerve pain in leg. Plan of Care Dates Plan of Care Start Date 03/15/18 Plan of Care End Date 06/07/18 Please Sign and Return: I have reviewed this Plan of Care and certify that the skilled therapy services above are required to meet the patient?s needs. Physician Signature Date Printed Name and Credentials Clinical Instructor Signature Printed Name and Credentials
--- NOTE | 2018-03-28 16:25 | PT.OTRE ---
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) Malignant neoplasm of upper lobe of right lung (Chronic 02/12/17) Surgical History (Last Updated 09/26/17 @ 10:42 by Sayra Godinez) History of eye surgery (Resolved) History of spinal fusion (Resolved) History of toe surgery (Resolved) Status post hysterectomy with oophorectomy (Resolved) Status post knee surgery (Resolved) Status post rotator cuff repair (Resolved) Provider Visit Care Team Role Provider Type Abiola Griffin MD Family Provider Physician Specialty: Physical Medicine and Rehab Address: [address] [place] [address] Email: Valentin Hernandez MD Attending Provider Physician Primary Care Provider Specialty: Internal Medicine Address: [address] [place] [address] Email: [email or web address] Physical Therapy Re-Evaluation PT-OP-A Visit Information Start: 07/17/17 13:15 Freq: Status: Active Protocol: Document 03/28/18 11:15 AMB (Rec: 03/28/18 16:05 AMB [email or web address]) Out-Patient Physical Therapy Visit Information Visit Information Visit Type Re-Evaluation Visit Note 03/28 G code Visit Start Time 11:15 Visit Stop Time 12:00 Total Visit Minutes 45 Visit Number 44 PT-OP-B Current Condition Start: 01/02/18 07:52 Freq: Status: Active Protocol: Document 01/02/18 09:30 AMB (Rec: 01/02/18 09:50 AMB [id number]) Current Condition History of Current Condition History of Current Condition Back pain, L leg pain for a few months. Trying to turn in bed, external rotation of the hip, with bilateral groin pain. While moving, pt feels good, but feels afterwards gets pain. Extended standing, cooking in the kitchen increases pain. Current pain is 6/10. Tingling in the left leg down the front of the leg . PT-OP-C Subjective Start: 07/17/17 13:15 Freq: Status: Active Protocol: Document 03/28/18 11:15 AMB (Rec: 03/28/18 16:05 AMB [email or web address]) OP-PT Subjective Patient Comments Patient Comments Pt attends physical therapy with a new prescription for her R knee pain. She reports she has noticed clicking in the knee for the past few weeks. She is worried it might give way, but it hasn't yet. She notices lateral knee pain when walking. It hurts to roll over in bed. PT-OP-J Posture/Palpation/Skin Start: 01/02/18 07:52 Freq: Status: Active Protocol: Document 03/28/18 11:15 AMB (Rec: 03/28/18 16:24 AMB [email or web address]) Palpation Assessment Location One Palpation Details Pt describes pain at patellar tendon attachment but not significant pain with palpation. PT-OP-K Range of Motion Start: 01/02/18 07:52 Freq: Status: Active Protocol: Document 03/28/18 11:15 AMB (Rec: 03/28/18 16:24 AMB [email or web address]) Knee Goniometric Range of Motion Knee Measured in Degrees Right Flexion Active (degrees) 117 Extension Active (degrees) 0 Left Flexion Active (degrees) 110 Extension Active (degrees) 8 PT-OP-L Special Tests Start: 01/02/18 07:52 Freq: Status: Active Protocol: Document 03/28/18 11:15 AMB (Rec: 03/28/18 16:24 AMB [email or web address]) Special Tests Knee Special Tests Contreras Test Comments no pain, but pt fearful PT-OP-M Strength Start: 01/02/18 07:52 Freq: Status: Active Protocol: Document 03/28/18 11:15 AMB (Rec: 03/28/18 16:24 AMB [email or web address]) Knee Strength Knee Manual Muscle Testing Right Flexion (S2) 4 Good Extension (L3) 4 Good Left Flexion (S2) 5 Normal Extension (L3) 5 Normal PT-OP-Q Treatments Start: 07/17/17 13:15 Freq: Status: Active Protocol: Document 03/28/18 11:15 AMB (Rec: 03/28/18 16:24 AMB [email or web address]) Therapeutic Exercises Standing Exercises 3 Standing Exercise Name knee ext Resistance #3 tband Reps/Minutes 10 2 Standing Exercise Name hip abd Resistance #3 Reps/Minutes 10 Manual Therapy Treatment Taping 1 Body Location Knee Comments 3Ys PT-OP-T Assessment and Plan Start: 07/17/17 13:15 Freq: Status: Active Protocol: Document 03/28/18 11:15 AMB (Rec: 03/28/18 16:05 AMB [email or web address]) Physical Therapy Assessment Goals Six Impairment Gait Short Term Goal (STG) Glenny will walk on uneven surfaces for 30 minutes with 3 /10 pain or less. STG Duration 4 weeks Fuel Quality Tech Goal (LTG) Glenny will play golf for 1 our with knee pain of 3/10 or less. LTG Duration 4 weeks Five Impairment knee pain Short Term Goal (STG) Glenny will roll over in bed without knee pain. 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 NOT MET STG Duration 4 weeks Fuel Quality Tech Goal (LTG) The patient will roll over in bed without pain. PROGRESS MADE LTG Duration 8 weeks Three Impairment Pain Short Term Goal (STG) The patient will be independent with a HEP for core stability. PROGRESS MADE STG Duration 4 weeks Fuel Quality Tech Goal (LTG) The patient will play golf for 9 holes with 4/10 pain or less. NOT MET LTG Duration 8 weeks 2 Impairment Balance Short Term Goal (STG) The patient will turn her head without spinning. PROGRESS MADE, can do with slow movement but not fast. STG Duration 4 weeks Fpc Goal (LTG) The patient will improve her balance so that she can tolerate modified tandem stance with eyes closed for 30 seconds without LOB. NOT MET LTG Duration 8 weeks 1 Impairment Dizziness Short Term Goal (STG) The patient will display no nystagmus or dizziness with [place]. STG Duration MET Fpc Goal (LTG) The patient will get into and out of bed without spinning symptoms. MET LTG Duration MET Assessment Summary Assessment Glenny presents to PT with recent onset R knee pain and clicking. While she denies locking, she does note the pain to be 5/10 and has reduced AROM into both flexion and extension. Given her complex medical history and that she was also being seen here for her vestibular condition and her sciatica, we will progress her knee rehab slowly, but she should improve well. Physical Therapy Plan Frequency and Duration Frequency of Treatment 1x/Week Duration of Treatment 12 weeks Plan of Care Start Date 03/28/18 Plan of Care End Date 06/20/18 Therapeutic Interventions Therapeutic Interventions Balance Training Canalithic Repositioning Gait Training Home Exercise Program Neuromuscular Re-education Self-Care/Home Management Therapeutic Activities Therapeutic Exercises Vestibular Rehabilitation Modalities Cold Pack/Ice Massage Electric Stimulation Hot Packs Ultrasound Next Visit Focus/Plan Next Note Type Treatment Note Next Visit Plan Progress knee stabilization. Reassess dizziness as needed.
--- NOTE | 2018-04-03 09:41 | PT.OTN ---
Current Diagnoses Benign paroxysmal vertigo, unspecified ear (04/02/18) Physical Therapy Treatment Note PT-OP-A Visit Information Start: 07/17/17 13:15 Freq: Status: Active Protocol: Document 04/02/18 13:45 AMB (Rec: 04/03/18 07:31 AMB [email or web address]) Out-Patient Physical Therapy Visit Information Visit Information Visit Type Treatment Note Visit Note 2 Visit Start Time 13:45 Visit Stop Time 14:30 Total Visit Minutes 45 Visit Number 45 PT-OP-B Current Condition Start: 01/02/18 07:52 Freq: Status: Active Protocol: Document 01/02/18 09:30 AMB (Rec: 01/02/18 09:50 AMB [id number]) Current Condition History of Current Condition History of Current Condition Back pain, L leg pain for a few months. Trying to turn in bed, external rotation of the hip, with bilateral groin pain. While moving, pt feels good, but feels afterwards gets pain. Extended standing, cooking in the kitchen increases pain. Current pain is 6/10. Tingling in the left leg down the front of the leg . PT-OP-C Subjective Start: 07/17/17 13:15 Freq: Status: Active Protocol: Document 04/02/18 13:45 AMB (Rec: 04/03/18 07:31 AMB [email or web address]) OP-PT Subjective Patient Comments Patient Comments Pt saw Dr. Griffin who would like us to try TENS on her back. PT-OP-J Posture/Palpation/Skin Start: 01/02/18 07:52 Freq: Status: Active Protocol: Document 03/28/18 11:15 AMB (Rec: 03/28/18 16:24 AMB [email or web address]) Palpation Assessment Location One Palpation Details Pt describes pain at patellar tendon attachment but not significant pain with palpation. PT-OP-K Range of Motion Start: 01/02/18 07:52 Freq: Status: Active Protocol: Document 03/28/18 11:15 AMB (Rec: 03/28/18 16:24 AMB [email or web address]) Knee Goniometric Range of Motion Knee Measured in Degrees Right Flexion Active (degrees) 117 Extension Active (degrees) 0 Left Flexion Active (degrees) 110 Extension Active (degrees) 8 PT-OP-L Special Tests Start: 01/02/18 07:52 Freq: Status: Active Protocol: Document 03/28/18 11:15 AMB (Rec: 03/28/18 16:24 AMB [email or web address]) Special Tests Knee Special Tests Contreras Test Comments no pain, but pt fearful PT-OP-M Strength Start: 01/02/18 07:52 Freq: Status: Active Protocol: Document 03/28/18 11:15 AMB (Rec: 03/28/18 16:24 AMB [email or web address]) Knee Strength Knee Manual Muscle Testing Right Flexion (S2) 4 Good Extension (L3) 4 Good Left Flexion (S2) 5 Normal Extension (L3) 5 Normal PT-OP-Q Treatments Start: 07/17/17 13:15 Freq: Status: Active Protocol: Document 04/02/18 13:45 AMB (Rec: 04/03/18 09:37 AMB [email or web address]) Therapeutic Exercises Sitting Exercises 6 Sitting Exercise Name hamstring stretch 5 Sitting Exercise Name IT band stretch Reps/Minutes 30x2 3 Sitting Exercise Name adductor squeeze Reps/Minutes 5x2 Manual Therapy Treatment Soft Tissue Mobilization 1 Body Location IT band Joint Mobilizations 1 Joint fibular head Direction AP/PA Grade III Body Position Sitting Neuro Re-Education Treatment Other Activities Nakita manuever Details R Reps/Duration 1 Comments Brief nystagmus in position 1 PT-OP-R Modalities Start: 04/03/18 09:24 Freq: Status: Active Protocol: Document 04/02/18 13:45 AMB (Rec: 04/03/18 09:41 AMB [email or web address]) Electric Stimulation Electric Stimulation Interferential Current (IFC) Body Location low back Duration (Minutes) 10 Comments sitting PT-OP-T Assessment and Plan Start: 07/17/17 13:15 Freq: Status: Active Protocol: Document 04/02/18 13:45 AMB (Rec: 04/03/18 09:41 AMB [email or web address]) Physical Therapy Assessment Assessment Summary Assessment Educated pt in e-stim and cancer, not to put electrodes over known METS (T-9, R hip). With patients extensive imaging, she did not have mets to the lumbar spine at last imaging. Will need to continue to progess VMO and IT band stretching. Physical Therapy Plan Next Visit Focus/Plan Next Note Type Treatment Note Next Visit Plan Progress knee stabilization. Reassess dizziness as needed.
--- NOTE | 2018-04-12 15:51 | PT.OTN ---
Current Diagnoses Benign paroxysmal vertigo, unspecified ear (04/12/18) Physical Therapy Treatment Note PT-OP-A Visit Information Start: 07/17/17 13:15 Freq: Status: Active Protocol: Document 04/12/18 13:45 AMB (Rec: 04/12/18 15:35 AMB [email or web address]) Out-Patient Physical Therapy Visit Information Visit Information Visit Type Treatment Note Visit Note 3 Visit Start Time 13:45 Visit Stop Time 14:30 Total Visit Minutes 55 Visit Number 46 PT-OP-B Current Condition Start: 01/02/18 07:52 Freq: Status: Active Protocol: Document 01/02/18 09:30 AMB (Rec: 01/02/18 09:50 AMB [id number]) Current Condition History of Current Condition History of Current Condition Back pain, L leg pain for a few months. Trying to turn in bed, external rotation of the hip, with bilateral groin pain. While moving, pt feels good, but feels afterwards gets pain. Extended standing, cooking in the kitchen increases pain. Current pain is 6/10. Tingling in the left leg down the front of the leg . PT-OP-C Subjective Start: 07/17/17 13:15 Freq: Status: Active Protocol: Document 04/12/18 13:45 AMB (Rec: 04/12/18 15:35 AMB [email or web address]) OP-PT Subjective Patient Comments Patient Comments Pt noticed improved pain after last visit for the next few days, but it is back now in her back and lateral knee. PT-OP-J Posture/Palpation/Skin Start: 01/02/18 07:52 Freq: Status: Active Protocol: Document 03/28/18 11:15 AMB (Rec: 03/28/18 16:24 AMB [email or web address]) Palpation Assessment Location One Palpation Details Pt describes pain at patellar tendon attachment but not significant pain with palpation. PT-OP-K Range of Motion Start: 01/02/18 07:52 Freq: Status: Active Protocol: Document 03/28/18 11:15 AMB (Rec: 03/28/18 16:24 AMB [email or web address]) Knee Goniometric Range of Motion Knee Measured in Degrees Right Flexion Active (degrees) 117 Extension Active (degrees) 0 Left Flexion Active (degrees) 110 Extension Active (degrees) 8 PT-OP-L Special Tests Start: 01/02/18 07:52 Freq: Status: Active Protocol: Document 03/28/18 11:15 AMB (Rec: 03/28/18 16:24 AMB [email or web address]) Special Tests Knee Special Tests Contreras Test Comments no pain, but pt fearful PT-OP-M Strength Start: 01/02/18 07:52 Freq: Status: Active Protocol: Document 03/28/18 11:15 AMB (Rec: 03/28/18 16:24 AMB [email or web address]) Knee Strength Knee Manual Muscle Testing Right Flexion (S2) 4 Good Extension (L3) 4 Good Left Flexion (S2) 5 Normal Extension (L3) 5 Normal PT-OP-Q Treatments Start: 07/17/17 13:15 Freq: Status: Active Protocol: Document 04/12/18 13:45 AMB (Rec: 04/12/18 15:51 AMB [email or web address]) Therapeutic Exercises Supine Exercises 2 Supine Exercise Name bridges Comments PPT Manual Therapy Treatment Soft Tissue Mobilization 1 Body Location IT band Joint Mobilizations 2 Joint tibiofemoral Direction AP Grade III 1 Joint fibular head Direction AP/PA Grade III Body Position Sitting Taping 1 Body Location I strip over fibular head PT-OP-R Modalities Start: 04/03/18 09:24 Freq: Status: Active Protocol: Document 04/12/18 13:45 AMB (Rec: 04/12/18 15:51 AMB [email or web address]) Electric Stimulation Electric Stimulation Interferential Current (IFC) Body Location low back Duration (Minutes) 10 Comments sitting PT-OP-T Assessment and Plan Start: 07/17/17 13:15 Freq: Status: Active Protocol: Document 04/12/18 13:45 AMB (Rec: 04/12/18 15:51 AMB [email or web address]) Physical Therapy Assessment Assessment Summary Assessment Pt showing some improvement in pain management, notices pain with full knee extension. Physical Therapy Plan Next Visit Focus/Plan Next Note Type Treatment Note Next Visit Plan Progress knee stabilization. Reassess dizziness as needed.
--- NOTE | 2018-04-15 16:18 | PT.OTN ---
Current Diagnoses Benign paroxysmal vertigo, unspecified ear (04/15/18) Physical Therapy Treatment Note PT-OP-A Visit Information Start: 07/17/17 13:15 Freq: Status: Active Protocol: Document 04/15/18 08:00 AMB (Rec: 04/15/18 16:16 AMB [email or web address]) Out-Patient Physical Therapy Visit Information Visit Information Visit Type Treatment Note Visit Note 4 Visit Start Time 08:00 Visit Stop Time 08:55 Total Visit Minutes 55 Visit Number 47 PT-OP-B Current Condition Start: 01/02/18 07:52 Freq: Status: Active Protocol: Document 01/02/18 09:30 AMB (Rec: 01/02/18 09:50 AMB [id number]) Current Condition History of Current Condition History of Current Condition Back pain, L leg pain for a few months. Trying to turn in bed, external rotation of the hip, with bilateral groin pain. While moving, pt feels good, but feels afterwards gets pain. Extended standing, cooking in the kitchen increases pain. Current pain is 6/10. Tingling in the left leg down the front of the leg . PT-OP-C Subjective Start: 07/17/17 13:15 Freq: Status: Active Protocol: Document 04/15/18 08:00 AMB (Rec: 04/15/18 16:16 AMB [email or web address]) OP-PT Subjective Patient Comments Patient Comments Some dizziness, but not really feeling like the crystals, wondering if it is her brain. Knee is getting better, back is the same. PT-OP-J Posture/Palpation/Skin Start: 01/02/18 07:52 Freq: Status: Active Protocol: Document 03/28/18 11:15 AMB (Rec: 03/28/18 16:24 AMB [email or web address]) Palpation Assessment Location One Palpation Details Pt describes pain at patellar tendon attachment but not significant pain with palpation. PT-OP-K Range of Motion Start: 01/02/18 07:52 Freq: Status: Active Protocol: Document 03/28/18 11:15 AMB (Rec: 03/28/18 16:24 AMB [email or web address]) Knee Goniometric Range of Motion Knee Measured in Degrees Right Flexion Active (degrees) 117 Extension Active (degrees) 0 Left Flexion Active (degrees) 110 Extension Active (degrees) 8 PT-OP-L Special Tests Start: 01/02/18 07:52 Freq: Status: Active Protocol: Document 03/28/18 11:15 AMB (Rec: 03/28/18 16:24 AMB [email or web address]) Special Tests Knee Special Tests Contreras Test Comments no pain, but pt fearful PT-OP-M Strength Start: 01/02/18 07:52 Freq: Status: Active Protocol: Document 03/28/18 11:15 AMB (Rec: 03/28/18 16:24 AMB [email or web address]) Knee Strength Knee Manual Muscle Testing Right Flexion (S2) 4 Good Extension (L3) 4 Good Left Flexion (S2) 5 Normal Extension (L3) 5 Normal PT-OP-Q Treatments Start: 07/17/17 13:15 Freq: Status: Active Protocol: Document 04/15/18 08:00 AMB (Rec: 04/15/18 16:16 AMB [email or web address]) Manual Therapy Treatment Joint Mobilizations 2 Joint tibiofemoral Direction AP Grade III 1 Joint fibular head Direction AP/PA Grade III Body Position Sitting Neuro Re-Education Treatment Vestibular Rehabilitation X1 Viewing Comments encouraged increased speed, pt not moving equally to the left Other Activities Nakita manuever Details R Reps/Duration 1 Comments no nystagmus but pt reported dizzinesss in position 3. PT-OP-R Modalities Start: 04/03/18 09:24 Freq: Status: Active Protocol: Document 04/15/18 08:00 AMB (Rec: 04/15/18 16:18 AMB [email or web address]) Electric Stimulation Electric Stimulation Interferential Current (IFC) Body Location low back Duration (Minutes) 10 Comments sitting PT-OP-T Assessment and Plan Start: 07/17/17 13:15 Freq: Status: Active Protocol: Document 04/15/18 08:00 AMB (Rec: 04/15/18 16:18 AMB [email or web address]) Physical Therapy Assessment Assessment Summary Assessment Pt's knee pain is improving, dizziness is chronic at this time, pt needs continued education in how to progress vestibular rehab. Physical Therapy Plan Next Visit Focus/Plan Next Note Type Treatment Note Next Visit Plan Progress knee stabilization. Reassess dizziness as needed.
--- NOTE | 2018-04-25 13:11 | PT.OTN ---
Current Diagnoses Benign paroxysmal vertigo, unspecified ear (04/25/18) Physical Therapy Treatment Note PT-OP-A Visit Information Start: 07/17/17 13:15 Freq: Status: Active Protocol: Document 04/25/18 08:15 AMB (Rec: 04/26/18 13:02 AMB [email or web address]) Out-Patient Physical Therapy Visit Information Visit Information Visit Type Treatment Note Visit Note 5 Visit Start Time 08:00 Visit Stop Time 08:55 Total Visit Minutes 55 Visit Number 48 PT-OP-B Current Condition Start: 01/02/18 07:52 Freq: Status: Active Protocol: Document 01/02/18 09:30 AMB (Rec: 01/02/18 09:50 AMB [id number]) Current Condition History of Current Condition History of Current Condition Back pain, L leg pain for a few months. Trying to turn in bed, external rotation of the hip, with bilateral groin pain. While moving, pt feels good, but feels afterwards gets pain. Extended standing, cooking in the kitchen increases pain. Current pain is 6/10. Tingling in the left leg down the front of the leg . PT-OP-C Subjective Start: 07/17/17 13:15 Freq: Status: Active Protocol: Document 04/25/18 08:15 AMB (Rec: 04/26/18 13:02 AMB [email or web address]) OP-PT Subjective Patient Comments Patient Comments Pt reports oncologist told her she has no active cancer she is going to be going to [place] for 3 weeks. PT-OP-J Posture/Palpation/Skin Start: 01/02/18 07:52 Freq: Status: Active Protocol: Document 03/28/18 11:15 AMB (Rec: 03/28/18 16:24 AMB [email or web address]) Palpation Assessment Location One Palpation Details Pt describes pain at patellar tendon attachment but not significant pain with palpation. PT-OP-K Range of Motion Start: 01/02/18 07:52 Freq: Status: Active Protocol: Document 03/28/18 11:15 AMB (Rec: 03/28/18 16:24 AMB [email or web address]) Knee Goniometric Range of Motion Knee Measured in Degrees Right Flexion Active (degrees) 117 Extension Active (degrees) 0 Left Flexion Active (degrees) 110 Extension Active (degrees) 8 PT-OP-L Special Tests Start: 01/02/18 07:52 Freq: Status: Active Protocol: Document 03/28/18 11:15 AMB (Rec: 03/28/18 16:24 AMB [email or web address]) Special Tests Knee Special Tests Contreras Test Comments no pain, but pt fearful PT-OP-M Strength Start: 01/02/18 07:52 Freq: Status: Active Protocol: Document 03/28/18 11:15 AMB (Rec: 03/28/18 16:24 AMB [email or web address]) Knee Strength Knee Manual Muscle Testing Right Flexion (S2) 4 Good Extension (L3) 4 Good Left Flexion (S2) 5 Normal Extension (L3) 5 Normal PT-OP-Q Treatments Start: 07/17/17 13:15 Freq: Status: Active Protocol: Document 04/25/18 08:15 AMB (Rec: 04/26/18 13:10 AMB [id number]) Therapeutic Exercises Sitting Exercises 6 Sitting Exercise Name hamstring stretch 5 Sitting Exercise Name IT band stretch Reps/Minutes 30x2 Neuro Re-Education Treatment Vestibular Rehabilitation X1 Viewing Comments encouraged increased speed, PT-OP-R Modalities Start: 04/03/18 09:24 Freq: Status: Active Protocol: Document 04/15/18 08:00 AMB (Rec: 04/15/18 16:18 AMB [email or web address]) Electric Stimulation Electric Stimulation Interferential Current (IFC) Body Location low back Duration (Minutes) 10 Comments sitting PT-OP-T Assessment and Plan Start: 07/17/17 13:15 Freq: Status: Active Protocol: Document 04/25/18 08:15 AMB (Rec: 04/26/18 13:10 AMB [email or web address]) Physical Therapy Assessment Assessment Summary Assessment positive for nystagmus with R Nakita. Knee pain is improving, pt reports oncologist said TENS was fine for her to manage her back pain. Physical Therapy Plan Next Visit Focus/Plan Next Note Type Treatment Note Next Visit Plan Progress knee stabilization. Reassess dizziness as needed.
--- NOTE | 2018-05-23 15:58 | PT.OTN ---
Current Diagnoses Benign paroxysmal vertigo, unspecified ear (05/23/18) Physical Therapy Treatment Note PT-OP-A Visit Information Start: 07/17/17 13:15 Freq: Status: Active Protocol: Document 05/23/18 08:15 AMB (Rec: 05/23/18 13:09 AMB [id number]) Out-Patient Physical Therapy Visit Information Visit Information Visit Type Treatment Note Visit Note 6 Visit Start Time 08:15 Visit Stop Time 09:00 Total Visit Minutes 45 Visit Number 49 PT-OP-B Current Condition Start: 01/02/18 07:52 Freq: Status: Active Protocol: Document 01/02/18 09:30 AMB (Rec: 01/02/18 09:50 AMB [id number]) Current Condition History of Current Condition History of Current Condition Back pain, L leg pain for a few months. Trying to turn in bed, external rotation of the hip, with bilateral groin pain. While moving, pt feels good, but feels afterwards gets pain. Extended standing, cooking in the kitchen increases pain. Current pain is 6/10. Tingling in the left leg down the front of the leg . PT-OP-C Subjective Start: 07/17/17 13:15 Freq: Status: Active Protocol: Document 05/23/18 08:15 AMB (Rec: 05/23/18 15:58 AMB [email or web address]) OP-PT Subjective Patient Comments Patient Comments Pt returns from her trip to [place]. She had a good time, was able to golf, but has to be slow with putting, as looking from side to side continues to be symptomatic. Walking in the dark was difficult. The knee did well with the brace. PT-OP-J Posture/Palpation/Skin Start: 01/02/18 07:52 Freq: Status: Active Protocol: Document 03/28/18 11:15 AMB (Rec: 03/28/18 16:24 AMB [email or web address]) Palpation Assessment Location One Palpation Details Pt describes pain at patellar tendon attachment but not significant pain with palpation. PT-OP-K Range of Motion Start: 01/02/18 07:52 Freq: Status: Active Protocol: Document 03/28/18 11:15 AMB (Rec: 03/28/18 16:24 AMB [email or web address]) Knee Goniometric Range of Motion Knee Measured in Degrees Right Flexion Active (degrees) 117 Extension Active (degrees) 0 Left Flexion Active (degrees) 110 Extension Active (degrees) 8 PT-OP-L Special Tests Start: 01/02/18 07:52 Freq: Status: Active Protocol: Document 03/28/18 11:15 AMB (Rec: 03/28/18 16:24 AMB [email or web address]) Special Tests Knee Special Tests Contreras Test Comments no pain, but pt fearful PT-OP-M Strength Start: 01/02/18 07:52 Freq: Status: Active Protocol: Document 03/28/18 11:15 AMB (Rec: 03/28/18 16:24 AMB [email or web address]) Knee Strength Knee Manual Muscle Testing Right Flexion (S2) 4 Good Extension (L3) 4 Good Left Flexion (S2) 5 Normal Extension (L3) 5 Normal PT-OP-Q Treatments Start: 07/17/17 13:15 Freq: Status: Active Protocol: Document 05/23/18 08:15 AMB (Rec: 05/23/18 15:58 AMB [email or web address]) Manual Therapy Treatment Soft Tissue Mobilization 1 Body Location neck Comments instruction in theracane Neuro Re-Education Treatment Balance Activities 4 Details recheck Elyssa-hallpike and supine roll Comments no nystagmus or dizziness with either side 3 Details NBOS HT 2 Details modified tandem EC 1 Details walking with headturns PT-OP-R Modalities Start: 04/03/18 09:24 Freq: Status: Active Protocol: Document 04/15/18 08:00 AMB (Rec: 04/15/18 16:18 AMB [email or web address]) Electric Stimulation Electric Stimulation Interferential Current (IFC) Body Location low back Duration (Minutes) 10 Comments sitting PT-OP-T Assessment and Plan Start: 07/17/17 13:15 Freq: Status: Active Protocol: Document 05/23/18 08:15 AMB (Rec: 05/23/18 15:58 AMB [email or web address]) Physical Therapy Assessment Assessment Summary Assessment Glenny is doing well, no signs of active BPPV at this time. Continues to have vestibular hypofunction that makes balancing with eyes closed, head turns difficult. Reassess next month. Physical Therapy Plan Next Visit Focus/Plan Next Note Type Progress Note Next Visit Plan Reassess dizziness, knee, back pain.
--- NOTE | 2018-06-28 14:31 | PT.OTN ---
Current Diagnoses Benign paroxysmal vertigo, unspecified ear (06/28/18) Physical Therapy Treatment Note PT-OP-A Visit Information Start: 07/17/17 13:15 Freq: Status: Active Protocol: Document 06/28/18 08:15 AMB (Rec: 06/28/18 14:31 AMB [email or web address]) Out-Patient Physical Therapy Visit Information Visit Information Visit Type Progress Note Visit Note 1 Visit Start Time 08:15 Visit Stop Time 09:00 Total Visit Minutes 45 Visit Number 50 PT-OP-B Current Condition Start: 01/02/18 07:52 Freq: Status: Active Protocol: Document 01/02/18 09:30 AMB (Rec: 01/02/18 09:50 AMB [id number]) Current Condition History of Current Condition History of Current Condition Back pain, L leg pain for a few months. Trying to turn in bed, external rotation of the hip, with bilateral groin pain. While moving, pt feels good, but feels afterwards gets pain. Extended standing, cooking in the kitchen increases pain. Current pain is 6/10. Tingling in the left leg down the front of the leg . PT-OP-C Subjective Start: 07/17/17 13:15 Freq: Status: Active Protocol: Document 06/28/18 08:15 AMB (Rec: 06/28/18 13:00 AMB [email or web address]) OP-PT Subjective Patient Comments Patient Comments Glenny states she had once instance of increased dizziness when getting a massage. Her knee is feeling good. Her back still bothers her. Her hand is getting hand therapy. PT-OP-J Posture/Palpation/Skin Start: 01/02/18 07:52 Freq: Status: Active Protocol: Document 03/28/18 11:15 AMB (Rec: 03/28/18 16:24 AMB [email or web address]) Palpation Assessment Location One Palpation Details Pt describes pain at patellar tendon attachment but not significant pain with palpation. PT-OP-K Range of Motion Start: 01/02/18 07:52 Freq: Status: Active Protocol: Document 03/28/18 11:15 AMB (Rec: 03/28/18 16:24 AMB [email or web address]) Knee Goniometric Range of Motion Knee Measured in Degrees Right Flexion Active (degrees) 117 Extension Active (degrees) 0 Left Flexion Active (degrees) 110 Extension Active (degrees) 8 PT-OP-L Special Tests Start: 01/02/18 07:52 Freq: Status: Active Protocol: Document 03/28/18 11:15 AMB (Rec: 03/28/18 16:24 AMB [email or web address]) Special Tests Knee Special Tests Contreras Test Comments no pain, but pt fearful PT-OP-M Strength Start: 01/02/18 07:52 Freq: Status: Active Protocol: Document 03/28/18 11:15 AMB (Rec: 03/28/18 16:24 AMB [email or web address]) Knee Strength Knee Manual Muscle Testing Right Flexion (S2) 4 Good Extension (L3) 4 Good Left Flexion (S2) 5 Normal Extension (L3) 5 Normal PT-OP-Q Treatments Start: 07/17/17 13:15 Freq: Status: Active Protocol: Document 06/28/18 08:15 AMB (Rec: 06/28/18 14:30 AMB [email or web address]) Neuro Re-Education Treatment Balance Activities 4 Details Nakita Reps/Duration 1 Comments nystagmus/dizziness with 1st position on the R. 1 Details walking with headturns Comments harder today than usual Vestibular Rehabilitation X1 Viewing Comments encouraged increased speed, PT-OP-R Modalities Start: 04/03/18 09:24 Freq: Status: Active Protocol: Document 04/15/18 08:00 AMB (Rec: 04/15/18 16:18 AMB [email or web address]) Electric Stimulation Electric Stimulation Interferential Current (IFC) Body Location low back Duration (Minutes) 10 Comments sitting PT-OP-T Assessment and Plan Start: 07/17/17 13:15 Freq: Status: Active Protocol: Document 06/28/18 08:15 AMB (Rec: 06/28/18 14:30 AMB [email or web address]) Physical Therapy Assessment Goals Six Impairment Gait Short Term Goal (STG) Glenny will walk on uneven surfaces for 30 minutes with 3 /10 pain or less. STG Duration MET Mcfp Goal (LTG) Glenny will play golf for 1 hour with knee pain of 3/10 or less. LTG Duration MET Five Impairment knee pain Short Term Goal (STG) Glenny will roll over in bed without knee pain. 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 NOT MET STG Duration 4 weeks Demonstrator Sewing Techniques Goal (LTG) The patient will roll over in bed without pain. PROGRESS MADE LTG Duration 8 weeks Three Impairment Pain Short Term Goal (STG) The patient will be independent with a HEP for core stability. PROGRESS MADE STG Duration 4 weeks Mcfp Goal (LTG) The patient will play golf for 9 holes with 4/10 pain or less. LTG Duration MET 2 Impairment Balance Short Term Goal (STG) The patient will turn her head without spinning. PROGRESS MADE, can do with slow movement but not fast. STG Duration 4 weeks Demonstrator Sewing Techniques Goal (LTG) The patient will improve her balance so that she can tolerate modified tandem stance with eyes closed for 30 seconds without LOB. NOT MET LTG Duration 8 weeks 1 Impairment Dizziness Short Term Goal (STG) The patient will display no nystagmus or dizziness with Elyssa-Hallpike. STG Duration Intermittently met Mcfp Goal (LTG) The patient will get into and out of bed without spinning symptoms. MET LTG Duration MET Progress Towards Goals Progress Towards Goals Progressing Toward Goals Slow Progress due to Medical Issues Assessment Summary Assessment Glneny has been referred for back pain, knee pain, and vestibular issues from different physicians over her time in PT. As of this visit, her knee pain is under control. She continues to have back pain that radiates into her leg, this has not really changed with PT. Her dizziness is what she was originally sent here for, and continues to be her major challenge. She continues to get BPPV (although she was clear for months, we think her cancer drugs are causing seperate but repeat events). She has been educated in the home Nakita maneuver. She has vestibular hypofunction so that it is difficult to balance with head turns, she needs to be more consistent with her VOR exercises. Considering the nature of her symptoms, and the previous severity of her imbalance, she will benefit from continued PT, but at a reduced frequency now that she is doing better. We are hopeful that with more consistent VOR exercises, her chronic vestibular hypofunction will improve, and that we will be able to progress her. Physical Therapy Plan Frequency and Duration Frequency of Treatment 1/month Duration of Treatment 2 months Plan of Care Start Date 06/28/18 Plan of Care End Date 09/27/18 Therapeutic Interventions Therapeutic Interventions Balance Training Canalithic Repositioning Gait Training Home Exercise Program Neuromuscular Re-education Self-Care/Home Management Therapeutic Activities Therapeutic Exercises Vestibular Rehabilitation Modalities Cold Pack/Ice Massage Electric Stimulation Hot Packs Ultrasound Next Visit Focus/Plan Next Note Type Treatment Note Next Visit Plan Reassess dizziness, knee, back pain.
--- NOTE | 2018-06-28 15:18 | PT.OPPOC ---
Current Diagnoses Benign paroxysmal vertigo, unspecified ear (06/28/18) Provider Visit Care Team Role Provider Type Abiola Griffin MD Family Provider Physician Specialty: Physical Medicine and Rehab Address: [address] [place], [address] Email: Valentin Hernandez MD Attending Provider Physician Primary Care Provider Specialty: Internal Medicine Address: [address], [address] Email: [email or web address] Plan Of Care PT-OP-T Assessment and Plan Start: 07/17/17 13:15 Freq: Status: Active Protocol: Document 06/28/18 08:15 AMB (Rec: 06/28/18 14:30 AMB [email or web address]) Physical Therapy Assessment Goals Six Impairment Gait Short Term Goal (STG) Glenny will walk on uneven surfaces for 30 minutes with 3 /10 pain or less. STG Duration MET Fountain Dispenser Goal (LTG) Glenny will play golf for 1 hour with knee pain of 3/10 or less. LTG Duration MET Five Impairment knee pain Short Term Goal (STG) Glenny will roll over in bed without knee pain. 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 NOT MET STG Duration 4 weeks Fci Goal (LTG) The patient will roll over in bed without pain. PROGRESS MADE LTG Duration 8 weeks Three Impairment Pain Short Term Goal (STG) The patient will be independent with a HEP for core stability. PROGRESS MADE STG Duration 4 weeks Fountain Dispenser Goal (LTG) The patient will play golf for 9 holes with 4/10 pain or less. LTG Duration MET 2 Impairment Balance Short Term Goal (STG) The patient will turn her head without spinning. PROGRESS MADE, can do with slow movement but not fast. STG Duration 4 weeks Fci Goal (LTG) The patient will improve her balance so that she can tolerate modified tandem stance with eyes closed for 30 seconds without LOB. NOT MET LTG Duration 8 weeks 1 Impairment Dizziness Short Term Goal (STG) The patient will display no nystagmus or dizziness with [place]-Hallpike. STG Duration Intermittently met Fountain Dispenser Goal (LTG) The patient will get into and out of bed without spinning symptoms. MET LTG Duration MET Progress Towards Goals Progress Towards Goals Progressing Toward Goals Slow Progress due to Medical Issues Assessment Summary Assessment Glenny has been referred for back pain, knee pain, and vestibular issues from different physicians over her time in PT. As of this visit, her knee pain is under control. She continues to have back pain that radiates into her leg, this has not really changed with PT. Her dizziness is what she was originally sent here for, and continues to be her major challenge. She continues to get BPPV (although she was clear for months, we think her cancer drugs are causing seperate but repeat events). She has been educated in the home Nakita maneuver. She has vestibular hypofunction so that it is difficult to balance with head turns, she needs to be more consistent with her VOR exercises. Considering the nature of her symptoms, and the previous severity of her imbalance, she will benefit from continued PT, but at a reduced frequency now that she is doing better. We are hopeful that with more consistent VOR exercises, her chronic vestibular hypofunction will improve, and that we will be able to progress her. Physical Therapy Plan Frequency and Duration Frequency of Treatment 1/month Duration of Treatment 3 months Plan of Care Start Date 06/28/18 Plan of Care End Date 09/27/18 Therapeutic Interventions Therapeutic Interventions Balance Training Canalithic Repositioning Gait Training Home Exercise Program Neuromuscular Re-education Self-Care/Home Management Therapeutic Activities Therapeutic Exercises Vestibular Rehabilitation Modalities Cold Pack/Ice Massage Electric Stimulation Hot Packs Ultrasound Next Visit Focus/Plan Next Note Type Treatment Note Next Visit Plan Reassess dizziness, knee, back pain. Plan of Care Dates Plan of Care Start Date 06/28/18 Plan of Care End Date 09/27/18 Please Sign and Return: I have reviewed this Plan of Care and certify that the skilled therapy services above are required to meet the patient?s needs. Physician Signature Date Printed Name and Credentials Clinical Instructor Signature Printed Name and Credentials
--- NOTE | 2018-08-27 15:56 | PT.OTN ---
Current Diagnoses Benign paroxysmal vertigo, unspecified ear (08/27/18) Physical Therapy Treatment Note PT-OP-A Visit Information Start: 07/17/17 13:15 Freq: Status: Active Protocol: Document 08/27/18 13:45 AMB (Rec: 08/27/18 15:56 AMB [email or web address]) Out-Patient Physical Therapy Visit Information Visit Information Visit Type Treatment Note Visit Note 2 Visit Start Time 13:45 Visit Stop Time 14:30 Total Visit Minutes 45 Visit Number 51 PT-OP-B Current Condition Start: 01/02/18 07:52 Freq: Status: Active Protocol: Document 01/02/18 09:30 AMB (Rec: 01/02/18 09:50 AMB [id number]) Current Condition History of Current Condition History of Current Condition Back pain, L leg pain for a few months. Trying to turn in bed, external rotation of the hip, with bilateral groin pain. While moving, pt feels good, but feels afterwards gets pain. Extended standing, cooking in the kitchen increases pain. Current pain is 6/10. Tingling in the left leg down the front of the leg . PT-OP-C Subjective Start: 07/17/17 13:15 Freq: Status: Active Protocol: Document 08/27/18 13:45 AMB (Rec: 08/27/18 15:56 AMB [email or web address]) OP-PT Subjective Patient Comments Patient Comments Less dizzy overall, did get spinny while lying down for a massage. PT-OP-J Posture/Palpation/Skin Start: 01/02/18 07:52 Freq: Status: Active Protocol: Document 03/28/18 11:15 AMB (Rec: 03/28/18 16:24 AMB [email or web address]) Palpation Assessment Location One Palpation Details Pt describes pain at patellar tendon attachment but not significant pain with palpation. PT-OP-K Range of Motion Start: 01/02/18 07:52 Freq: Status: Active Protocol: Document 03/28/18 11:15 AMB (Rec: 03/28/18 16:24 AMB [email or web address]) Knee Goniometric Range of Motion Knee Measured in Degrees Right Flexion Active (degrees) 117 Extension Active (degrees) 0 Left Flexion Active (degrees) 110 Extension Active (degrees) 8 PT-OP-L Special Tests Start: 01/02/18 07:52 Freq: Status: Active Protocol: Document 03/28/18 11:15 AMB (Rec: 03/28/18 16:24 AMB [email or web address]) Special Tests Knee Special Tests Contreras Test Comments no pain, but pt fearful PT-OP-M Strength Start: 01/02/18 07:52 Freq: Status: Active Protocol: Document 03/28/18 11:15 AMB (Rec: 03/28/18 16:24 AMB [email or web address]) Knee Strength Knee Manual Muscle Testing Right Flexion (S2) 4 Good Extension (L3) 4 Good Left Flexion (S2) 5 Normal Extension (L3) 5 Normal PT-OP-Q Treatments Start: 07/17/17 13:15 Freq: Status: Active Protocol: Document 08/27/18 13:45 AMB (Rec: 08/27/18 15:56 AMB [email or web address]) Neuro Re-Education Treatment Balance Activities 4 Details recheck Elyssa-hallpike Reps/Duration 1 Comments No nystagmus or dizziness 3 Details NBOS HT 1 Details walking with headturns Vestibular Rehabilitation X1 Viewing Comments encouraged increased speed, PT-OP-R Modalities Start: 04/03/18 09:24 Freq: Status: Active Protocol: Document 04/15/18 08:00 AMB (Rec: 04/15/18 16:18 AMB [email or web address]) Electric Stimulation Electric Stimulation Interferential Current (IFC) Body Location low back Duration (Minutes) 10 Comments sitting PT-OP-T Assessment and Plan Start: 07/17/17 13:15 Freq: Status: Active Protocol: Document 08/27/18 13:45 AMB (Rec: 08/27/18 15:56 AMB [email or web address]) Physical Therapy Assessment Assessment Summary Assessment Glenny overall is doing well , continues to have back pain but knee is doing well. Most concerned with dizziness which comes now and then but overall better, still with difficulty turning quickly. No nystagmus today, encouraged to increase VOR exercises to 15 min/day. Physical Therapy Plan Next Visit Focus/Plan Next Note Type Progress Note Next Visit Plan Reassess dizziness, knee, back pain.
--- NOTE | 2018-10-31 11:52 | PT.OTN ---
Current Diagnoses Benign paroxysmal vertigo, unspecified ear (10/31/18) Physical Therapy Treatment Note PT-OP-A Visit Information Start: 07/17/17 13:15 Freq: Status: Active Protocol: Document 10/31/18 07:30 AMB (Rec: 10/31/18 11:46 AMB [id number]) Out-Patient Physical Therapy Visit Information Visit Information Visit Type Discharge Summary Visit Start Time 07:30 Visit Stop Time 08:15 Total Visit Minutes 45 Visit Number 52 PT-OP-B Current Condition Start: 01/02/18 07:52 Freq: Status: Active Protocol: Document 01/02/18 09:30 AMB (Rec: 01/02/18 09:50 AMB [email or web address]) Current Condition History of Current Condition History of Current Condition Back pain, L leg pain for a few months. Trying to turn in bed, external rotation of the hip, with bilateral groin pain. While moving, pt feels good, but feels afterwards gets pain. Extended standing, cooking in the kitchen increases pain. Current pain is 6/10. Tingling in the left leg down the front of the leg . PT-OP-C Subjective Start: 07/17/17 13:15 Freq: Status: Active Protocol: Document 10/31/18 07:30 AMB (Rec: 10/31/18 11:46 AMB [id number]) OP-PT Subjective Patient Comments Patient Comments Glenny states that she has been able to manage her dizziness. There are certain activities that still make her off balance like looking up. She can play about 9 holes of golf and then gets pretty off . PT-OP-J Posture/Palpation/Skin Start: 01/02/18 07:52 Freq: Status: Active Protocol: Document 03/28/18 11:15 AMB (Rec: 03/28/18 16:24 AMB [email or web address]) Palpation Assessment Location One Palpation Details Pt describes pain at patellar tendon attachment but not significant pain with palpation. PT-OP-K Range of Motion Start: 01/02/18 07:52 Freq: Status: Active Protocol: Document 03/28/18 11:15 AMB (Rec: 03/28/18 16:24 AMB [email or web address]) Knee Goniometric Range of Motion Knee Right Flexion Active (degrees) 117 Extension Active (degrees) 0 Left Flexion Active (degrees) 110 Extension Active (degrees) 8 PT-OP-L Special Tests Start: 01/02/18 07:52 Freq: Status: Active Protocol: Document 03/28/18 11:15 AMB (Rec: 03/28/18 16:24 AMB [email or web address]) Special Tests Knee Special Tests Contreras Test Comments no pain, but pt fearful PT-OP-M Strength Start: 01/02/18 07:52 Freq: Status: Active Protocol: Document 03/28/18 11:15 AMB (Rec: 03/28/18 16:24 AMB [email or web address]) Knee Strength Knee Manual Muscle Testing Right Flexion (S2) 4 Good Extension (L3) 4 Good Left Flexion (S2) 5 Normal Extension (L3) 5 Normal PT-OP-Q Treatments Start: 07/17/17 13:15 Freq: Status: Active Protocol: Document 10/31/18 07:30 AMB (Rec: 10/31/18 11:52 AMB [email or web address]) Neuro Re-Education Treatment Balance Activities 7 Details HEP instruction Comments how to manage sx in future 4 Details recheck Elyssa-hallpike Reps/Duration 1 Comments No nystagmus or dizziness 2 Details modified tandem EC 1 Details walking with headturns PT-OP-R Modalities Start: 04/03/18 09:24 Freq: Status: Active Protocol: Document 04/15/18 08:00 AMB (Rec: 04/15/18 16:18 AMB [email or web address]) Electric Stimulation Electric Stimulation Interferential Current (IFC) Body Location low back Duration (Minutes) 10 Comments sitting PT-OP-T Assessment and Plan Start: 07/17/17 13:15 Freq: Status: Active Protocol: Document 10/31/18 07:30 AMB (Rec: 10/31/18 11:46 AMB [id number]) Physical Therapy Assessment Goals Six Impairment Gait Short Term Goal (STG) Glenny will walk on uneven surfaces for 30 minutes with 3 /10 pain or less. STG Duration MET Ultrasound Spec Goal (LTG) Glenny will play golf for 1 hour with knee pain of 3/10 or less. LTG Duration MET Five Impairment knee pain Short Term Goal (STG) Glenny will roll over in bed without knee pain. 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 NOT MET STG Duration 4 weeks Ultrasound Spec Goal (LTG) The patient will roll over in bed without pain. PROGRESS MADE LTG Duration 8 weeks Three Impairment Pain Short Term Goal (STG) The patient will be independent with a HEP for core stability. STG Duration MET Alf Goal (LTG) The patient will play golf for 9 holes with 4/10 pain or less. LTG Duration MET 2 Impairment Balance Short Term Goal (STG) The patient will turn her head without spinning. PROGRESS MADE, can do with slow movement but not fast. STG Duration 4 weeks Ultrasound Spec Goal (LTG) The patient will improve her balance so that she can tolerate modified tandem stance with eyes closed for 30 seconds without LOB. NOT MET LTG Duration 8 weeks 1 Impairment Dizziness Short Term Goal (STG) The patient will display no nystagmus or dizziness with [place]-Hallpike. STG Duration MET Alf Goal (LTG) The patient will get into and out of bed without spinning symptoms. MET LTG Duration MET Assessment Summary Assessment Glenny is managing her symptoms independently at this time. She does not show any nystagmus with Elyssa-Hallpike and has been instructed in self Nakita if her symptoms return. She has been able to return to golf in a modified manner, because quick head turns do continue to make her off balance. In my assessment , this is more of a chronic central neurological cause at this time. Looking up and balancing with eyes closed continue to be difficult for her, but she is independent with her HEP. She would be welcome to return to PT if she has a flare in symptoms, but she is currently able to manage at her current level of function. Physical Therapy Plan Discharge Physical Therapy Discharge Reasons Goals Met Discharge Comments Glenny has met most of her goals, but not all, as she continues to have intermittent back pain and intermittent dizziness, although not nearly as bad as it used to be.
--- NOTE | 2018-10-31 11:54 | PT.OPPOC ---
Current Diagnoses Benign paroxysmal vertigo, unspecified ear (10/31/18) Provider Visit Care Team Role Provider Type Abiola Griffin MD Family Provider Physician Specialty: Physical Medicine and Rehab Address: [address] [place] [address], [id number] Email: Valentin Hernandez MD Attending Provider Physician Primary Care Provider Specialty: Internal Medicine Address: [address] [place] [address], [id number] Email: [email or web address] Plan Of Care PT-OP-T Assessment and Plan Start: 07/17/17 13:15 Freq: Status: Active Protocol: Document 10/31/18 07:30 AMB (Rec: 10/31/18 11:46 AMB [id number]) Physical Therapy Assessment Goals Six Impairment Gait Short Term Goal (STG) Glenny will walk on uneven surfaces for 30 minutes with 3 /10 pain or less. STG Duration MET Long-Term Goal (LTG) Glenny will play golf for 1 hour with knee pain of 3/10 or less. LTG Duration MET Five Impairment knee pain Short Term Goal (STG) Glenny will roll over in bed without knee pain. 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 NOT MET STG Duration 4 weeks Ceo Goal (LTG) The patient will roll over in bed without pain. PROGRESS MADE LTG Duration 8 weeks Three Impairment Pain Short Term Goal (STG) The patient will be independent with a HEP for core stability. STG Duration MET Ceo Goal (LTG) The patient will play golf for 9 holes with 4/10 pain or less. LTG Duration MET 2 Impairment Balance Short Term Goal (STG) The patient will turn her head without spinning. PROGRESS MADE, can do with slow movement but not fast. STG Duration 4 weeks Long-Term Goal (LTG) The patient will improve her balance so that she can tolerate modified tandem stance with eyes closed for 30 seconds without LOB. NOT MET LTG Duration 8 weeks 1 Impairment Dizziness Short Term Goal (STG) The patient will display no nystagmus or dizziness with [place]-Hallpike. STG Duration MET Long-Term Goal (LTG) The patient will get into and out of bed without spinning symptoms. MET LTG Duration MET Assessment Summary Assessment Glenny is managing her symptoms independently at this time. She does not show any nystagmus with [place]-Hallpike and has been instructed in self Nakita if her symptoms return. She has been able to return to golf in a modified manner, because quick head turns do continue to make her off balance. In my assessment , this is more of a chronic central neurological cause at this time. Looking up and balancing with eyes closed continue to be difficult for her, but she is independent with her HEP. She would be welcome to return to PT if she has a flare in symptoms, but she is currently able to manage at her current level of function. Physical Therapy Plan Frequency and Duration Frequency of Treatment 1/month Duration of Treatment 6 weeks Plan of Care Start Date 09/27/18 Plan of Care End Date 11/01/18 Therapeutic Interventions Therapeutic Interventions Balance Training Canalithic Repositioning Gait Training Home Exercise Program Neuromuscular Re-education Self-Care/Home Management Therapeutic Activities Therapeutic Exercises Vestibular Rehabilitation Modalities Cold Pack/Ice Massage Electric Stimulation Hot Packs Ultrasound Discharge Physical Therapy Discharge Reasons Goals Met Discharge Comments Glenny has met most of her goals, but not all, as she continues to have intermittent back pain and intermittent dizziness, although not nearly as bad as it used to be. Plan of Care Dates Plan of Care Start Date 09/27/18 Plan of Care End Date 11/01/18 Please Sign and Return: I have reviewed this Plan of Care and certify that the skilled therapy services above are required to meet the patient?s needs. Physician Signature Date Printed Name and Credentials Clinical Instructor Signature Printed Name and Credentials
== END 2018-10-31 17:02 | disposition home or self-care (01) ==
LOC: PHYS 07:30
PROVIDERS: Family Provider Physical Medicine & Rehabilitation; PCP Internal Medicine; Visit Provider Internal Medicine
DX: H81.10 Benign paroxysmal vertigo, unspecified ear (principal)
CPT/HCPCS: 95992; 97014; 97110; 97112; 97140; 97164; 97535; G0283

== ENCOUNTER → 2018-11-20 09:05 | Outpatient (CLI) | payer MEDICARE, BC, SELFPAY ==
--- NOTE | 2018-11-20 | DI.MRI.S_ITS ---
PROCEDURE: MR CERVICAL SPINE WO CON INDICATIONS: Radiculopathy, cervical region TECHNIQUE: Noncontrast sagittal T1 spin echo and T2 fast spin echo, sagittal STIR, foraminal oblique sagittal T2 fast spin echo, and axial gradient echo or T2 fast spin echo through the cervical spine. COMPARISON: [facility], CT, PE STUDY (CTA CHEST), 11/28/2016, 20:31. Outside Facility, RG, XR CXR 2V, 03/26/2014, 15:07. FINDINGS: Image quality: Excellent. Alignment and Curvature: There is normal bony alignment. Bone Marrow: Marrow demonstrates normal overall signal. Spinal Cord: Visualized spinal cord has normal size and signal. No cerebellar tonsillar herniation. Paraspinous Soft Tissues: No paravertebral masses. Prevertebral soft tissues are normal in thickness. C2-C3: Normal appearance. C3-C4: Normal appearance. C4-C5: Mild loss of disc height is seen. Loss of disc signal is seen. Mild to moderate disc osteophyte complex is seen, with a central disc osteophyte protrusion. Mild to moderate facet hypertrophy is seen. There is moderate to severe right-sided and moderate left-sided neural foraminal narrowing seen. Moderate central canal narrowing is seen, with associated mass effect upon the ventral spinal cord. C5-C6: Vertebral body fusion is seen at this level. No neural foraminal or central canal narrowing is seen. C6-C7: Postoperative changes are seen, with anterior fixation hardware. A disc spacer is seen at this level. There is associated susceptibility artifact. Xriw-jw-xgluhlxk disc osteophyte complex is seen. There is at least moderate bilateral neural foraminal narrowing seen, right worse than left. The central canal is widely patent. C7-T1: No significant abnormality is seen. IMPRESSION: C6-C7 postoperative change anteriorly. There is also bony fusion of C5-C6. Focal C4-C5 degenerative change, with moderate to severe right-sided and moderate left-sided neural foraminal narrowing at this level. Moderate central canal narrowing is seen at this level. Dictated by: Eddie Lux M.D. on 11/20/2018 at 9:51 Approved by: Eddie Lux M.D. on 11/20/2018 at 9:55
== END ==
PROVIDERS: PCP Internal Medicine; Visit Provider Physical Medicine & Rehabilitation
DX: M47.22 Other spondylosis with radiculopathy, cervical region (principal); M48.02 Spinal stenosis, cervical region; Z98.1 Arthrodesis status
CPT/HCPCS: 72141

== ENCOUNTER → 2018-12-03 14:40 | Outpatient (CLI) | payer MEDICARE, BC, SELFPAY ==
[2018-12-03 14:51] LABS: Bacteria Urine None Seen
[2018-12-03 15:13] LABS: Appearance Urine UA CLEAR; Bilirubin Urine UA NEGATIVE (NEGATIVE); Color Urine UA YELLOW; Glucose Urine UA NEGATIVE (Negative); Ketones Urine UA NEGATIVE (NEGATIVE); Leukocyte Esterase Urine UA 3+ (NEGATIVE); Nitrite Urine UA NEGATIVE (Negative); Occult Blood Urine UA 3+ (Negative); Protein Urine UA NEGATIVE (Negative); Specific Gravity Urine UA <=1.005 (1.000-1.035); Urobilinogen Urine UA 0.2 E.U./dL (0.2)
[2018-12-03 15:19] LABS: Culture Indicated Urine Specimen Cultured; RBC Urine 5-10/HPF (0-5/HPF); WBC Urine 10-30/HPF (0-5/HPF)
== END ==
PROVIDERS: PCP Internal Medicine; Visit Provider Student in an Organized Health Care Education/Training Program
DX: R30.0 Dysuria (principal)
CPT/HCPCS: 81001; 87086

== ENCOUNTER → 2018-12-24 11:32 | Outpatient (CLI) | payer MEDICARE, BC, SELFPAY | PROVIDERS: PCP Internal Medicine; Visit Provider Internal Medicine | DX: N39.0 Urinary tract infection, site not specified (principal) | CPT/HCPCS: 87077; 87086 ==

== ENCOUNTER 2019-04-07 07:22 | Emergency (ER) | payer MEDICARE, BC, SELFPAY ==
[2019-04-07 07:24] VITALS: BP 111/54; PULSE 80; RESP 20; TEMP 36.9; O2SAT 98; BMI 24.4
--- NOTE | 2019-04-07 07:31 | ED_ITS ---
HPI - Abdominal Pain General Chief Complaint: Abdominal Pain Stated Complaint: constipation,cancer patient Time Seen by Provider: 04/07/19 07:31 Source: patient and family Mode of arrival: Ambulatory Limitations: no limitations History of Present Illness HPI narrative: This is a 68-year-old female comes emergency department with complaint of constipation patient states that she received an infusion 1 week ago for her metastatic cancer lung. Patient states that she had the same reaction the past where she becomes quite constipated. She has tried glycerin suppository as well as oral stool softener without any change. Patient states she has not had any fevers but has had a little chills. She states her skin seem to turn red afterwards on her torso but that seems to be resolving. She has not had any nausea or vomiting. She denies any abdominal pain she feels like there's a ball of stool at the rectum but she is not able to expel it. Patient states that she doesn't think she has been passing gas except for very small amounts. She has not had a bowel movement for several days. She states in the past she has required attempted disimpaction and multiple interventions and almost been hospitalized for constipation in the past. Related Data Home Medications Medication Instructions Recorded Confirmed ondansetron HCl [Zofran] #0 05/15/16 12/24/18 antiarthritic combination no.2 900 mg PO tab 09/27/17 12/24/18 mg tablet cholecalciferol (vitamin D3) 50 2,000 unit PO DAILY 09/27/17 12/24/18 mcg (2,000 unit) capsule diphenoxylate-atropine 2.5 See Rx Instructions PO .COMPLEX 09/27/17 12/24/18 mg-0.025 mg tablet PRN tab furosemide 20 mg tablet 10 mg PO DAILY 09/27/17 12/24/18 magnesium 250 mg tablet 250 mg PO DAILY 09/27/17 12/24/18 meclizine 25 mg tablet PO 10 Days #30 tab 09/27/17 12/24/18 multivitamin 1 tab PO DAILY 09/27/17 12/24/18 potassium chloride 10 mEq 10 meq PO DAILY 09/27/17 12/24/18 capsule,extended release tramadol 50 mg tablet 50 mg PO Q4H PRN tab 09/27/17 12/24/18 lorlatinib 25 mg tablet 50 mg PO DAILY 05/30/18 12/24/18 Previous Rx's Medication Instructions Recorded ciprofloxacin HCl 500 mg tablet 500 mg PO BID #14 tab 12/24/18 docusate sodium [Colace] 100 mg PO BID #30 cap 04/07/19 Allergies Allergy/AdvReac Type Severity Reaction Status Date / Time No Known Drug Allergies Allergy Verified 12/24/18 10:39 Review of Systems Review of Systems ROS Unobtainable: All systems reviewed & are unremarkable except as noted in HPI and below Constitutional Constitutional: Reports chills and Denies fever(s) Cardiovascular Cardiovascular: Denies chest pain and Denies dyspnea Respiratory Respiratory: Denies dyspnea Gastrointestinal Gastrointestinal: Denies abdominal pain, Denies melena, Denies hematochezia, Reports constipation, Denies excessive flatus, Denies nausea and Denies vomiting Genitourinary Genitourinary: Reports as per HPI, Denies urinary frequency, Denies difficulty voiding, Denies dysuria, Denies flank pain and Denies urinary hesitancy Musculoskeletal Musculoskeletal: Denies back pain Patient History Medical History 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 HEENT: Head normocephalic, atraumatic, EOMI, pupils reactive, face symmetric, moist mucous membranes NECK: Supple, full range of motion CARDIOVASCULAR: Regular rate and rhythm without murmurs, rubs or gallops. RESPIRATORY: Breath sounds equal bilaterally, no wheezes rales or rhonchi. ABDOMEN: Soft, nontender. Nondistended. Normoactive bowel sounds all 4 quadrants. No guarding or rebound, rigidity, no mass. On rectal exam patient has a ball of stool at the rectal vault. No bright red blood or melena. Patient is nontender. : No CVA tenderness EXTREMITIES: Normal range of motion, no clubbing or edema. Neurovascularly intact NEUROLOGICAL: Cranial nerves II through XII grossly intact. Moving all extremities SKIN: Warm, dry, no petechiae, no rashes or lesions. Initial Vital Signs Initial Vital Signs: Vital Signs Temperature 98.5 F 04/07/19 07:24 Pulse Rate 80 04/07/19 07:24 Respiratory Rate 20 04/07/19 07:24 Blood Pressure 111/54 L 04/07/19 07:24 Pulse Oximetry 98 04/07/19 07:24 Course Orders Ordered: ED Orders 04/07/19 07:32 XR abdomen min 2V Stat Discontinued Medications Mineral Oil (Mineral Oil Enema) 1 each NC NOW ONE Stop: 04/07/19 07:43 Last Admin: 04/07/19 08:10 Dose: 1 each Documented by: SCANAPO Vital Signs Vital signs: Vital Signs - 8 hr 04/07/19 07:24 Temperature 98.5 F Pulse Rate 80 Respiratory Rate 20 Blood Pressure 111/54 L Pulse Oximetry 98 MDM - Abdominal Pain Imaging Data Abdominal x-ray: Radiologist's Impression: [address] [address] XRay Report Signed Patient: Glenny Hope EMR#: [id number] : 9Acct:[id number] Age/Sex: 68 / FDate of Service: 04/07/19 Loc: ED Accession Number: [id number] Procedure: XR abdomen min 2V Ordering Provider: Jessica Miranda D.O. PROCEDURE: XR ABDOMEN MIN 2V INDICATIONS: constipation TECHNIQUE: 2 views of the abdomen were acquired. COMPARISON: [facility], , MR PELVIS WITH/WITHOUT CONTRAST, 03/14/2019, 11:00. FINDINGS: Surgical changes and devices: None. Bowel: No pneumoperitoneum. The bowel gas pattern is nonobstructive. Moderate to large amount of fecal matter throughout the colon extending to the rectum is seen. Soft tissues: No masses; visualized solid organ contours appear normal in size. No suspicious abdominal calcifications. Bones: Sclerotic changes involving left side of ilium adjacent to left sacroiliac joint. Similar increased sclerotic changes involving right ilium adjacent to right sacroiliac joint is also seen. IMPRESSION: Constipation and impaction in the rectum. No gross free air. Area of sclerotic changes involving bilateral ilium, concerning for bony metastasis given patient's history of metastatic lung cancer and was also seen on previous MR of the pelvis.. Dictated by: Reilly Warner M.D. on 04/07/2019 at 8:19 Approved by: Reilly Warner M.D. on 04/07/2019 at 8:22 MDM Narrative Medical decision making narrative: Patient had enema with good results and had a bowel movement. Discharge Plan Departure Patient Disposition: Home Clinical Impression: Constipation Discharge Date/Time: 04/07/19 08:43 Instructions: Constipation Activity Restrictions/Additional Instructions: Follow up with your physician about possible bowel regimen while taking infusions to prevent constipation. I would recommend taking a stool softener once daily such as a colace and/or miralax once daily. You may take colace up to two tablets daily if one tablet is not helpful. A prescription for colace was sent to [facility] in [place]. Make sure you are drinking plenty of fluids. Return to ER for fevers greater than 100.4F, new abdominal or flank pain, persistent vomiting, black or bloody stools or other new or concerning symptoms. Prescriptions: New docusate sodium [Colace] 100 mg capsule 100 mg PO BID Qty: 30 RF: 0 No Action ondansetron HCl [Zofran] 8 MG tablet Qty: 0 RF: 0 multivitamin tablet 1 tab PO DAILY RF: 0 potassium chloride 10 mEq capsule, extended release 10 meq PO DAILY RF: 0 diphenoxylate-atropine [Lomotil] 2.5-0.025 mg tablet See Rx Instructions PO .COMPLEX PRNRF: 0 tramadol 50 mg tablet 50 mg PO Q4H PRNRF: 0 meclizine 25 mg tablet PO 10 Days Qty: 30 RF: 0 magnesium 250 mg tablet 250 mg PO DAILY RF: 0 furosemide 20 mg tablet 10 mg PO DAILY RF: 0 cholecalciferol (vitamin D3) 2,000 unit capsule 2,000 unit PO DAILY RF: 0 antiarthritic combination no.2 [glucosamine-chondroitin] 900 mg tablet PO RF: 0 Lorbrena 25 mg tablet 50 mg PO DAILY RF: 0 ciprofloxacin HCl 500 mg tablet 500 mg PO BID Qty: 14 RF: 0 Referrals: Valentin Hernandez MD [Primary Care Provider] -
[2019-04-07] MEDS: MINERAL OIL 1 EACH ENEMA PR (08:10)
--- NOTE | 2019-04-07 08:43 | PC.NURSE ---
pt had large bm after mineral enema, states she feels better.
== END 2019-04-07 08:43 | disposition home or self-care (01) ==
PROVIDERS: Emergency Provider Emergency Medicine; PCP Internal Medicine
DX: K59.00 Constipation, unspecified (principal); C34.90 Malignant neoplasm of unspecified part of unspecified bronchus or lung
CPT/HCPCS: 74019; 99283

== ENCOUNTER → 2019-04-14 14:39 | Outpatient (CLI) | payer MEDICARE, BC, SELFPAY ==
[2019-04-14 16:23] LABS: Add Manual Diff / Slide Review NO; Basophils Absolute Auto 0 /uL (0-100); Basophils Percent Auto 0.2 % (0-2); Eosinophils Absolute Auto 200 /uL (0-450); Eosinophils Percent Auto 4.1 % (2-4); Hematocrit 31.3 % (36-46); Hemoglobin 10.3 g/dL (12.0-16.0); Lymphocytes Absolute Auto 700 /uL (1100-4500); Lymphocytes Percent Auto 17.7 % (25-40); Mean Corpuscular HGB Conc 33.1 % (30-36); Mean Corpuscular Hemoglobin 28.3 PG (26-34); Mean Corpuscular Volume 85.5 fL (80-100); Monocytes Absolute Auto 500 /uL (0-900); Monocytes Percent Auto 12.8 % (3-14); Neutrophils Absolute Auto 2400 /uL (1500-7000); Neutrophils Percent Auto 65.2 % (50-75); Platelet Count 267 X10^3/uL (150-400); Red Blood Cell Count 3.66 X10^6/uL (4.0-5.2); Red Cell Distribution Width 16.3 % (11.6-14.8); White Blood Cell Count 3.7 X10^3/uL (4.5-11.0)
== END ==
PROVIDERS: PCP Internal Medicine; Visit Provider Internal Medicine Medical Oncology
DX: C34.90 Malignant neoplasm of unspecified part of unspecified bronchus or lung (principal)
CPT/HCPCS: 36415; 85025

== ENCOUNTER 2019-06-03 06:40 | Day surgery (SDC) | payer MEDICARE, BC, SELFPAY ==
[2019-06-03] MEDS: CATARACT EYE COMPOUND (10 DROPS/SYRINGE) 3 DROPS EYE-OP (07:11)
[2019-06-03] MEDS: PROPARACAINE 0.5% OPHTH SOL 2 DROPS EYE-OP (07:11)
[2019-06-03 07:14] VITALS: BP 108/61; PULSE 76; RESP 15; TEMP 36.4; O2SAT 100; BMI 24.3
--- NOTE | 2019-06-03 07:45 | PM.PREOP ---
Pre-operative Note Interval Note History & Physical reviewed/Exam performed by Physician: Yes Changes to H&P: No
--- NOTE | 2019-06-03 07:45 | PM.OP.1 ---
Operative Date/Time/Diagnoses Pre-op diagnosis: Nuclear cataract right eye Procedure & Clinicians Procedure: Cataract Surgery Same procedure as scheduled: Yes Surgeon: Giancarlo Copeland Anesthesia Type: MAC +/- and Sedation Operative Notes Procedure in detail: Patient brought to the operating suite. Tetracaine drops placed in the right eye. Patient was prepped and draped in sterile manner. Wire lid speculum was placed in the eye. Betadine drops were placed on the eye. This was irrigated. Lidocaine jelly was placed on the eye. A paracentesis port was created with a side-port blade. 0.1 mL 1% preservative free lidocaine was injected into the anterior chamber. The anterior chamber was deepened with viscoelastic. 2.6 mm keratome was used to create a temporal clear corneal incision. Cystotome and Utrata forceps were used to create continuous tear capsulorrhexis. Balanced salt solution was used to hydro dissect the nucleus. The phacoemulsification handpiece was inserted and the nucleus was removed using the stop and chop technique. The irrigation aspiration handpiece was inserted and the remaining cortex was removed. Anterior chamber was deepened with viscoelastic. An Ruiz ZCB00 intraocular lens with a power of 29.5 was injected into the capsular bag. Irrigation aspiration handpiece was inserted and the remaining viscoelastic was removed. Incision was hydrated with balanced salt solution and found to be leak free with pressure with Weck-Florencia sponges. 0.1 mL Vigamox injected anterior chamber. 0.3 mL Kenalog 10 mg was injected subconjunctivally. Lid speculum was removed. The patient left the operating room in excellent condition. Complications: none Post-operative Condition: stable Disposition: same day surgery
[2019-06-03] MEDS: TRIAMCINOLONE 50 MG/5 ML VIAL INJ (08:01)
[2019-06-03] MEDS: MOXIFLOXACIN INJ 5 MG/ML VIAL EYE-OP (08:01)
[2019-06-03] MEDS: PHENYLEPHRINE/LIDOCAINE VIAL (OR) 0.2 ML EYE-OP (08:01)
[2019-06-03] MEDS: CHONDROIDTIN/SOD HYALURONATE 1.05 ML SYRINGE INTRAOCULA (08:02)
[2019-06-03] MEDS: BALANCED SALT IRRIG SOLN NO.2 500 ML, EPINEPHrine 1 MG IRR (08:02)
[2019-06-03] MEDS: TETRACAINE 0.5% OPHTH DROPS 4 ML 2 DROPS EYE-OP (08:02)
[2019-06-03] MEDS: LIDOCAINE JELLY 2% 5 ML 1 APPLIC TOP (08:02)
[2019-06-03 08:14] VITALS: BP 103/63; PULSE 73; RESP 15; TEMP 36.4; O2SAT 100
== END 2019-06-03 08:30 | disposition home or self-care (01) ==
PROVIDERS: PCP Internal Medicine; Referring Provider Ophthalmology; Visit Provider Ophthalmology
PROC: (CPT 66984; principal; 2019-06-03 07:45)
DX: H25.11 Age-related nuclear cataract, right eye (principal); D64.9 Anemia, unspecified
CPT/HCPCS: 66984; J0171; J2250; J3010; J3301

== ENCOUNTER → 2019-06-19 09:27 | Outpatient (CLI) | payer MEDICARE, BC, SELFPAY ==
[2019-06-20 22:35] LABS: COVID19 Sendout Not Detected (Not Detected)
== END ==
PROVIDERS: PCP Internal Medicine; Visit Provider Family Medicine
DX: R05 Cough (principal)
CPT/HCPCS: 87635

== ENCOUNTER 2019-06-19 10:05 | Emergency (ER) | payer MEDICARE, BC, SELFPAY ==
[2019-06-19 10:21] VITALS: BP 132/62; PULSE 84; RESP 13; TEMP 36.9; O2SAT 100; BMI 24.4
--- NOTE | 2019-06-19 10:21 | ED_ITS ---
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 Began noticing a cough in early April while she was in [place] for the month. Was initially treated with a course of an antiviral as well as Augmentin and then again treated with a course of amoxicillin. This did not dramatically influence her symptoms. On return to the [facility] she was seen by her cancer provider and had a CT scan of the chest in May that was unremarkable for infection, specifically no suggestion of Covid19. Her minimally productive cough has persisted now for the month of May and she continues to have a sore throat that she attributes to the cough as well as postnasal drip. She has not had any fevers, is not dyspneic, describes no lower extremity edema, she is noticing that she is having more chest pain with deep inspiration and secondary to the physical force of coughing. She did have cataract surgery approximately 2 weeks ago had is noticed some more tearing in her eyes which is also exacerbating her postnasal drip. She was sent in today by her cancer physician with concerns for possible pulmonary embolism. 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 Related Data Home Medications Medication Instructions Recorded Confirmed ondansetron HCl [Zofran] 8 mg PO PRN PRN #0 05/15/16 06/03/19 antiarthritic combination no.2 900 900 mg PO DAILY tab 09/27/17 06/03/19 mg tablet cholecalciferol (vitamin D3) 50 2,000 unit PO DAILY 09/27/17 06/03/19 mcg (2,000 unit) capsule diphenoxylate-atropine 2.5 See Rx Instructions PO .COMPLEX 09/27/17 06/03/19 mg-0.025 mg tablet PRN tab magnesium 250 mg tablet 250 mg PO DAILY 09/27/17 06/03/19 multivitamin 1 tab PO DAILY 09/27/17 06/03/19 tramadol 50 mg tablet 50 mg PO Q4H PRN tab 09/27/17 06/03/19 acetaminophen 325 mg tablet 325 mg PO DAILY PRN tab 04/08/19 06/03/19 folic acid 1 mg tablet 1 mg PO DAILY 04/08/19 06/03/19 furosemide 20 mg tablet 10 mg PO DAILY PRN 04/08/19 06/03/19 Previous Rx's Medication Instructions Recorded docusate sodium [Colace] 100 mg PO BID #30 cap 04/07/19 azithromycin See Rx Instructions .ROUTE 06/19/19 .COMPLEX #6 tab benzonatate [Tessalon Perles] 100 mg PO TID PRN #20 cap 06/19/19 hydrocodone-acetaminophen 0.5 tab PO Q8H PRN #14 tab 06/19/19 Allergies Allergy/AdvReac Type Severity Reaction Status Date / Time No Known Drug Allergies Allergy Verified 06/19/19 10:21 Review of Systems Review of Systems Narrative: No nausea, vomiting, diarrhea, weight changes, orthopnea. All systems reviewed and are unremarkable except as noted in HPI and below Patient History Medical History Blister (Acute) Malignant neoplasm of lung metastatic to bone (Chronic 02/12/17) Malignant neoplasm of upper lobe of right lung (Chronic 02/12/17) Metastatic bone cancer (Chronic 11/2012) Non-small cell lung cancer (NSCLC) (Chronic) Surgical History History of eye surgery (Resolved) History of spinal fusion (Resolved) History of toe surgery (Resolved) Status post hysterectomy with oophorectomy (Resolved) Status post knee surgery (Resolved) Status post rotator cuff repair (Resolved) Social History household members: spouse Smoking Status: Never smoker Smoking Status: Never smoker alcohol intake frequency: other Substance Use Type: does not use Exam Narrative Exam Narrative: General: Healthy appearing, in no acute distress. Able to give a complete and coherent history. Well-nourished well-developed HEENT: Moist mucous membranes, normal sclera with reactive pupils, Neck: No JVD, supple Respiratory: Lungs with very minor scattered wheezing in the lower lung landeros, no rhonchi, full and symmetric air movement without accessory muscle use Cardiac: Regular rate and rhythm no murmurs no bruits Abdomen: Soft nontender good bowel tones, no flank pain Skin: Warm and dry, no rashes Neurologic: Grossly neurologically intact with no obvious asymmetries or abnormalities Extremities: No trauma, well perfused Psych: Cooperative, appropriate insight and affect Initial Vital Signs Initial Vital Signs: Vital Signs Temperature 98.4 F 06/19/19 10:21 Pulse Rate 84 06/19/19 10:21 Respiratory Rate 13 06/19/19 10:21 Blood Pressure 132/62 06/19/19 10:21 Pulse Oximetry 100 06/19/19 10:21 Course Orders Ordered: ED Orders 06/19/19 10:39 XR chest 1V Stat 06/19/19 11:35 Complete Blood Count AUTO DIFF Stat Comprehensive Metabolic Panel Stat D Dimer Stat 06/19/19 12:06 CT chest w con Stat Heparin Sodium (Porcine) (Heparin Flush (Port)) 500 unit IV PRN PRN PRN Reason: Flush Last Admin: 06/19/19 13:52 Dose: 500 unit Documented by: RSTONE Discontinued Medications Hydrocodone Bitart/Acetaminophen ([place] 5/325) 0.5 tab PO NOW ONE Stop: 06/19/19 10:39 Last Admin: 06/19/19 10:52 Dose: 0.5 tab Documented by: BTONER Benzonatate (Tessalon Perles) 100 mg PO NOW ONE Stop: 06/19/19 10:39 Last Admin: 06/19/19 10:51 Dose: 100 mg Documented by: BTONER Methylprednisolone (Solu-Medrol 125 Mg Vial) 60 mg IV NOW ONE Stop: 06/19/19 10:39 Last Admin: 06/19/19 10:52 Dose: 60 mg Documented by: BTONER Vital Signs Vital signs: Vital Signs - 8 hr 06/19/19 10:21 06/19/19 12:31 06/19/19 13:35 Temperature 98.4 F Pulse Rate 84 76 76 Respiratory Rate 13 14 15 Blood Pressure 132/62 Blood Pressure [Right Arm] 134/62 123/57 L Pulse Oximetry 100 99 98 Medical Decision Making Medical Records Medical records reviewed: Yes I reviewed the patient's medical records. Lab Data Lab results reviewed: Yes I reviewed the patient's lab results. Lab results narrative: pemitrexee/elipta treatment end of may and expect WBC vikas. Result diagrams: 06/19/19 11:35 06/19/19 11:35 Labs: Lab Results 06/19/19 06/19/19 06/19/19 Range/Units 11:35 11:35 11:35 WBC 2.1 L (4.5-11.0) X10^3/uL RBC 3.08 L (4.0-5.2) X10^6/uL Hgb 9.0 L (12.0-16.0) g/dL Hct 26.9 L (36-46) % MCV 87.3 (80-100) fL MCH 29.1 (26-34) PG MCHC 33.3 (30-36) % RDW 17.9 H (11.6-14.8) % Plt Count 241 (150-400) X10^3/uL Neut % (Auto) Not Reportable Lymph % (Auto) Not Reportable [place] % (Auto) Not Reportable Eos % (Auto) Not Reportable Baso % (Auto) Not Reportable Lymph # (Auto) Not Reportable [place] # (Auto) Not Reportable Baso # (Auto) Not Reportable Total Counted 50 Seg Neutrophils % 52.0 (38-70) % Band Neutrophils % 4.0 (3-7) % Lymphocytes % (Manual) 28.0 (25-45) % Monocytes % (Manual) 14.0 H (2-11) % Eosinophils % (Manual) 2.0 (2-4) % Neutrophils # (Manual) 1176 L (0316-7828) /uL Nucleated RBCs 1 H ( - 0) #/Diff Hypersegmented Neuts 1+ RBC Morphology Not Reportable Polychromasia 1+ H Anisocytosis 1+ H D-Dimer 529 H (<230) ng/mL Sodium 136 L (137-145) mmol/L Potassium 4.1 (3.4-5.1) mmol/L Chloride 99 (98-107) mmol/L Carbon Dioxide 30 (22-32) mmol/L BUN 12 (7-17) mg/dL Creatinine 0.89 (0.52-1.04) mg/dL Estimated GFR > 60.0 (>60) mL/min BUN/Creatinine Ratio 13.5 (6-22) Glucose 101 (80-110) mg/dL Calcium 9.3 (8.4-10.2) mg/dL Total Bilirubin 0.4 (0.2-1.3) mg/dL AST 29 (14-36) IU/L ALT 20 (<35) IU/L Alkaline Phosphatase 99 (38-126) U/L Total Protein 7.7 (6.3-8.2) g/dL Albumin 4.1 (3.5-5.0) g/dL Globulin 3.6 (1.7-4.1) g/dL Albumin/Globulin Ratio 1.1 (1.0-2.8) Imaging Data Chest x-ray: Radiologist's Impression: IMPRESSION: Right midlung infiltrate. Followup chest radiographs are recommended to complete resolution. If this abnormality does not completely resolve on plain film, then a chest CT with contrast would be recommended to evaluate for a potential underlying mass. Postoperative and degenerative changes are seen. Dictated by: Eddie Lux M.D. on 06/19/2019 at 10:14 CT scan - chest: Radiologist's Impression: FINDINGS: Image quality: Excellent. Lungs and pleura: There is a masslike consolidative opacity identified in the right upper lobe measuring approximately 26 mm AP by 60 mm transverse by 41 mm craniocaudal. It is in direct approximation to the right superhilar region. There are scattered punctate nodular opacities within the right apex superior to the opacity. Mediastinum: Heart size is normal. No pericardial effusion. No mediastinal or hilar adenopathy by size criteria. Thoracic aorta and central pulmonary arteries are normal in size. Esophagus is normal in caliber. No hiatal hernia. Bones and chest wall: No suspicious bony lesions. No vertebral body compression fractures. No axillary or supraclavicular adenopathy by size criteria. Thyroid gland is unremarkable. Abdomen: Multiple punctate hepatic foci are noted, unchanged compared to prior exam. Visualized upper abdominal solid organs appear normal. Upper abdominal bowel loops are normal in caliber. IMPRESSION: 1. Masslike opacity within the right upper lobe with punctate nodular opacities in the apex. The masslike consolidation extends to the superhilar region. While this could represent pneumonia, overall appearance is highly concerning for more aggressive etiology such as malignancy. Recommend correlation to patient's symptoms and if infectiou s etiology appears likely, very short interval imaging followup after appropriate therapy to document resolution may be obtained. Otherwise, PET scan or biopsy is recommended. Dictated by: Marcelle Frederick M.D. on 06/19/2019 at 12:30 MDM Narrative Medical decision making narrative: After phone conversation with her cancer care physician they were concerned about pulmonary embolism. Listening to more of her story she is complaining of pleuritic type pain after a persistent cough that was unresponsive to a course of an antiviral medication, of course of amoxicillin and a course of Augmentin. She is not tachycardic, tachypneic or hypoxic. Risk factors do include her cancer as well as travel to and from [place] with the longer flights. With a CT scan less than a month ago would prefer to not expose her to additional radiation if her D-dimer is negative will assume that she does not have a pulmonary embolism. Will try more aggressive treatment for the cough suppression 1451: message left for Dr Chun Carrera, to call ER to help with dispo [id number] care is reviewed with Dr. Leo. He is looking at the CT scan that was done in May and I have given him the radiology read from the CT scan done today. I have asked that the films be electronically transmitted to the [facility] system so he can't access them. Given that there were absolutely no findings in May the probability that this is a cancer is far less likely. We will treated as an atypical pneumonia and place her on a course of azithromycin. She did find that the half a Vicodin was very effective in controlling her cough. Will provider prescription for Vicodin for cough suppressant as well as Tessalon Perles. She will contact the [facility] for close follow-up next week. She is safe for home discharge Discharge Plan Departure Patient Disposition: Home Clinical Impression: Atypical pneumonia Instructions: DI for Pneumonia -- Adult Activity Restrictions/Additional Instructions: Thank you for being patient with year long visit here today Your CT scan today showed some findings in your right upper lobe. Given that similar findings were absent 1 month ago the chance that this is a cancer is far less likely. The films have been electronically sent to the [facility] system and when you follow-up with Dr. Hutchinson's next week he should be able to compare. In the meantime, we are going to treat you for an atypical pneumonia with a course of oral azithromycin. For cough suppression you can use half of hydrocodone tablet (this is narcotic, it will make you constipated and you should not drive or make important decisions while taking it) as well as Tessalon Perles. All 3 prescriptions have been electronically transmitted to [facility] on [address]. Please call to schedule your appointment next week at the [facility] for close follow-up. If you find that you are having a worsening or more productive cough, fevers, changing chest pain or new and concerning symptoms please return to the emergency room and I am happy to re-evaluate I hope you feel better Prescriptions: New hydrocodone-acetaminophen 5-325 mg tablet 0.5 tab PO Q8H PRN (Reason: pain) Qty: 14 RF: 0 azithromycin 250 mg tablet See Rx Instructions .ROUTE .COMPLEX Qty: 6 RF: 0 benzonatate [Tessalon Perles] 100 mg capsule 100 mg PO TID PRN (Reason: cough) Qty: 20 RF: 0 No Action ondansetron HCl [Zofran] 8 MG tablet 8 mg PO PRN PRN (Reason: Nausea) Qty: 0 RF: 0 multivitamin tablet 1 tab PO DAILY RF: 0 diphenoxylate-atropine [Lomotil] 2.5-0.025 mg tablet See Rx Instructions PO .COMPLEX PRN (Reason: Diarrhea) RF: 0 tramadol 50 mg tablet 50 mg PO Q4H PRN (Reason: pain) RF: 0 magnesium 250 mg tablet 250 mg PO DAILY RF: 0 cholecalciferol (vitamin D3) 2,000 unit capsule 2,000 unit PO DAILY RF: 0 antiarthritic combination no.2 [glucosamine-chondroitin] 900 mg tablet 900 mg PO DAILY RF: 0 furosemide 20 mg tablet 10 mg PO DAILY PRN (Reason: Edema) RF: 0 folic acid 1 mg tablet 1 mg PO DAILY RF: 0 acetaminophen [Tylenol] 325 mg tablet 325 mg PO DAILY PRN (Reason: Pain) RF: 0 docusate sodium [Colace] 100 mg capsule 100 mg PO BID Qty: 30 RF: 0 Referrals: Valentin Hernandez MD [Primary Care Provider] -
--- NOTE | 2019-06-19 10:39 | DI.RAD.S_ITS ---
PROCEDURE: XR CHEST 1V INDICATIONS: persistent cough TECHNIQUE: One view of the chest was acquired. COMPARISON: [facility], CT, PE STUDY (CTA CHEST), 11/28/2016, 20:31. Outside Facility, RG, XR CXR 2V, 03/26/2014, 15:07. FINDINGS: Surgical changes and devices: A right-sided chest port is seen, the tip overlying the superior right atrium, just below the cavoatrial junction. Cervical spine fixation hardware is seen. There is a right humeral head screw. Lungs and pleura: There is a mild degree of infiltrate seen within the right mid lung. The lungs otherwise appear clear. No pneumothorax or pleural effusions are seen. Mediastinum: The cardiac contours are within normal limits. The aorta demonstrates calcification and tortuosity. Bones and chest wall: No suspicious bony lesions. Age-appropriate bony degenerative changes are seen. Overlying soft tissues appear unremarkable. IMPRESSION: Right midlung infiltrate. Followup chest radiographs are recommended to complete resolution. If this abnormality does not completely resolve on plain film, then a chest CT with contrast would be recommended to evaluate for a potential underlying mass. Postoperative and degenerative changes are seen. Dictated by: Eddie Lux M.D. on 06/19/2019 at 10:14 Approved by: Eddie Lux M.D. on 06/19/2019 at 10:16
[2019-06-19] MEDS: BENZONATATE 100 MG CAPSULE PO (10:51)
[2019-06-19] MEDS: methylPREDNISolone 125 MG/2 ML VIAL 60 MG IV (10:52)
[2019-06-19] MEDS: HYDROCODONE/ACET 5/325 TABLET 0.5 TAB PO (10:52)
[2019-06-19 11:56] LABS: Add Manual Diff / Slide Review YES; Hematocrit 26.9 % (36-46); Mean Corpuscular HGB Conc 33.3 % (30-36); Mean Corpuscular Hemoglobin 29.1 PG (26-34); Mean Corpuscular Volume 87.3 fL (80-100); Platelet Count 241 X10^3/uL (150-400); Red Blood Cell Count 3.08 X10^6/uL (4.0-5.2); Red Cell Distribution Width 17.9 % (11.6-14.8); White Blood Cell Count 2.1 X10^3/uL (4.5-11.0)
[2019-06-19 11:57] LABS: D Dimer 529 ng/mL (<230)
[2019-06-19 11:59] LABS: Alanine Aminotransferase 20 IU/L (<35); Albumin 4.1 g/dL (3.5-5.0); Albumin Globulin Ratio 1.1 (1.0-2.8); Alkaline Phosphatase 99 U/L (38-126); Aspartate Aminotransferase 29 IU/L (14-36); BUN Creatinine Ratio 13.5 (6-22); Bilirubin Total 0.4 mg/dL (0.2-1.3); Blood Urea Nitrogen 12 mg/dL (7-17); Calcium 9.3 mg/dL (8.4-10.2); Carbon Dioxide 30 mmol/L (22-32); Chloride 99 mmol/L (98-107); Estimated Glomerular Filt Rate > 60.0 mL/min (>60); Globulin 3.6 g/dL (1.7-4.1); Glucose 101 mg/dL (80-110); HEMOLYSIS < 15 (0-50); Potassium 4.1 mmol/L (3.4-5.1); Sodium 136 mmol/L (137-145); Total Protein 7.7 g/dL (6.3-8.2)
--- NOTE | 2019-06-19 12:06 | DI.CT.S_ITS ---
PROCEDURE: CT CHEST W CON INDICATIONS: RML infiltrate, h/o lung CA, ? obstructing mass? TECHNIQUE: After the administration of intravenous contrast, 5 mm thick sections acquired from the pulmonary apices to the posterior costophrenic angles. 1 mm axial lung, 5 mm thick coronal and sagittal reformats and 7 mm axial MIP were acquired. For radiation dose reduction, the following was used: automated exposure control, adjustment of mA and/or kV according to patient size. COMPARISON: [facility], CT, PE STUDY (CTA CHEST), 11/28/2016, 20:31. [facility], CR, XR CHEST 1V, 06/19/2019, 10:45. FINDINGS: Image quality: Excellent. Lungs and pleura: There is a masslike consolidative opacity identified in the right upper lobe measuring approximately 26 mm AP by 60 mm transverse by 41 mm craniocaudal. It is in direct approximation to the right superhilar region. There are scattered punctate nodular opacities within the right apex superior to the opacity. Mediastinum: Heart size is normal. No pericardial effusion. No mediastinal or hilar adenopathy by size criteria. Thoracic aorta and central pulmonary arteries are normal in size. Esophagus is normal in caliber. No hiatal hernia. Bones and chest wall: No suspicious bony lesions. No vertebral body compression fractures. No axillary or supraclavicular adenopathy by size criteria. Thyroid gland is unremarkable. Abdomen: Multiple punctate hepatic foci are noted, unchanged compared to prior exam. Visualized upper abdominal solid organs appear normal. Upper abdominal bowel loops are normal in caliber. IMPRESSION: 1. Masslike opacity within the right upper lobe with punctate nodular opacities in the apex. The masslike consolidation extends to the superhilar region. While this could represent pneumonia, overall appearance is highly concerning for more aggressive etiology such as malignancy. Recommend correlation to patient's symptoms and if infectious etiology appears likely, very short interval imaging followup after appropriate therapy to document resolution may be obtained. Otherwise, PET scan or biopsy is recommended. Dictated by: Marcelle Frederick M.D. on 06/19/2019 at 12:30 Approved by: Marcelle Frederick M.D. on 06/19/2019 at 12:34
[2019-06-19 12:10] LABS: Anisocytosis 1+; Neutrophils Absolute Manual 1176 /uL (3000-5900); Nucleated Red Blood Cells 1 #/Diff; Total Cells Counted 50
[2019-06-19 12:11] LABS: Hypersegmented Neutrophils 1+; Polychromasia 1+
[2019-06-19 12:31] VITALS: BP 134/62; PULSE 76; RESP 14; O2SAT 99
[2019-06-19 13:35] VITALS: BP 123/57; PULSE 76; RESP 15; O2SAT 98
[2019-06-19 14:40] VITALS: BP 105/55; PULSE 71; RESP 15; O2SAT 97
== END 2019-06-19 16:37 | disposition home or self-care (01) ==
PROVIDERS: Emergency Provider Emergency Medicine; PCP Internal Medicine
DX: J18.9 Pneumonia, unspecified organism (principal); C34.90 Malignant neoplasm of unspecified part of unspecified bronchus or lung; C79.51 Secondary malignant neoplasm of bone
CPT/HCPCS: 36415; 71045; 71260; 80053; 85025; 85379; 87635; 96374; 99284; 99285; J1642; J2930; Q9967

== ENCOUNTER → 2019-07-14 11:29 | Outpatient (CLI) | payer MEDICARE, BC, SELFPAY ==
--- NOTE | 2019-07-14 11:32 | DI.RAD.S_ITS ---
PROCEDURE: XR HIP W PEL IF DONE RT 2V INDICATIONS: r groin pain TECHNIQUE: AP pelvis with lateral view(s) of the right hip(s). COMPARISON: [facility], CT, ABDOMEN/PELVIS WITH CONTRAST, 06/27/2014, 2:45. [facility], CR, XR ABDOMEN MIN 2V, 04/07/2019, 7:29. [facility], CR, [id number] W PEL IF PERFORMED, 02/12/2017, 17:06. FINDINGS: Bones: No fractures or dislocations. Pelvic ring appears intact. Focal areas of bony sclerosis can be seen involving both medial iliac bones as well as the right ischial tuberosity region. There is at least moderate superior joint space narrowing seen of the right hip, with associated remodeling changes with subchondral sclerosis and osteophyte formation. Milder degenerative changes are seen of the left hip. Age-appropriate lower lumbar spine degenerative changes are noted. Soft tissues: The visualized bowel gas pattern is normal. No suspicious soft tissue calcifications. IMPRESSION: Sclerotic bony metastases again seen. Degenerative changes are seen of the hips, right worse than left. Dictated by: Eddie Lux M.D. on 07/14/2019 at 11:05 Approved by: Eddie Lux M.D. on 07/14/2019 at 11:07
== END ==
PROVIDERS: PCP Internal Medicine; Referring Provider Internal Medicine; Visit Provider Internal Medicine
DX: R10.31 Right lower quadrant pain (principal); C34.11 Malignant neoplasm of upper lobe, right bronchus or lung; C79.51 Secondary malignant neoplasm of bone; M47.816 Spondylosis without myelopathy or radiculopathy, lumbar region; M25.751 Osteophyte, right hip
CPT/HCPCS: 73502

== ENCOUNTER → 2019-09-20 09:15 | Outpatient (CLI) | payer MEDICARE, BC, SELFPAY ==
[2019-09-21 08:13] LABS: COVID19 Sendout Not Detected (Not Detect)
== END ==
PROVIDERS: PCP Internal Medicine; Visit Provider Nurse Practitioner
DX: Z01.812 Encounter for preprocedural laboratory examination (principal)
CPT/HCPCS: 87635

== ENCOUNTER 2019-09-23 06:59 | Day surgery (SDC) | payer MEDICARE, BC, SELFPAY ==
[2019-09-23] MEDS: PROPARACAINE 0.5% OPHTH SOL 2 DROPS EYE-OP (07:38)
[2019-09-23] MEDS: CATARACT EYE COMPOUND (10 DROPS/SYRINGE) 3 DROPS EYE-OP (07:43)
[2019-09-23 07:44] VITALS: BMI 24.7
[2019-09-23 07:49] VITALS: BP 104/59; PULSE 74; RESP 12; TEMP 36.1; O2SAT 98
--- NOTE | 2019-09-23 08:38 | P.OP_ITS ---
Operative Date/Time/Diagnoses Pre-op diagnosis: Nuclear Cataract Left eye Post-op diagnosis: same Procedure & Clinicians Same procedure as scheduled: Yes Surgeon: Giancarlo Copeland Anesthesia Type: MAC +/- and Sedation Operative Notes Procedure in detail: Patient brought to the operating suite. Tetracaine drops placed in the left eye. Patient was prepped and draped in sterile manner. Wire lid speculum was placed in the eye. Betadine drops were placed on the eye. This was irrigated. Lidocaine jelly was placed on the eye. A paracentesis port was created with a side-port blade. 0.1 mL 1% preservative free lidocaine was injected into the anterior chamber. The anterior chamber was deepened with viscoelastic. 2.6 mm keratome was used to create a temporal clear corneal incision. Cystotome and Utrata forceps were used to create continuous tear capsulorrhexis. Balanced salt solution was used to hydro dissect the nucleus. The phacoemulsification handpiece was inserted and the nucleus was removed using the stop and chop technique. The irrigation aspiration handpiece was inserted and the remaining cortex was removed. Anterior chamber was deepened with viscoe lastic. An Ruiz [id number] intraocular lens with a power of 23.5 was injected into the capsular bag. Irrigation aspiration handpiece was inserted and the remaining viscoelastic was removed. Incision was hydrated with balanced salt solution and found to be leak free with pressure with Weck-Florencia sponges. 0.1 mL Vigamox injected anterior chamber. 0.3 mL Kenalog 10 mg was injected subconjunctivally. Lid speculum was removed. The patient left the operating room in excellent condition. Complications: none Post-operative Condition: stable Disposition: same day surgery
--- NOTE | 2019-09-23 08:38 | PM.PREOP ---
Pre-operative Note Interval Note History & Physical reviewed/Exam performed by Physician: Yes Changes to H&P: No
[2019-09-23] MEDS: PHENYLEPHRINE/LIDOCAINE VIAL (OR) 0.2 ML EYE-OP ×2 (09:03→09:08)
[2019-09-23] MEDS: MOXIFLOXACIN INJ 5 MG/ML VIAL EYE-OP (09:06)
[2019-09-23] MEDS: TRIAMCINOLONE 50 MG/5 ML VIAL INJ (09:07)
[2019-09-23] MEDS: TETRACAINE 0.5% OPHTH DROPS 4 ML 2 DROPS EYE-OP (09:07)
[2019-09-23] MEDS: BALANCED SALT IRRIG SOLN NO.2 500 ML, EPINEPHrine 1 MG IRR (09:07)
[2019-09-23] MEDS: LIDOCAINE JELLY 2% 5 ML 1 APPLIC TOP (09:07)
[2019-09-23] MEDS: CHONDROIDTIN/SOD HYALURONATE 1.05 ML SYRINGE INTRAOCULA (09:07)
[2019-09-23 09:08] VITALS: BP 102/64; PULSE 66; RESP 12; TEMP 36; O2SAT 100
== END 2019-09-23 09:30 | disposition home or self-care (01) ==
PROVIDERS: PCP Internal Medicine; Referring Provider Ophthalmology; Visit Provider Ophthalmology
PROC: (CPT 66984; principal; 2019-09-23 08:45)
DX: H25.12 Age-related nuclear cataract, left eye (principal)
CPT/HCPCS: 66984; J0171; J2250; J3301

== ENCOUNTER → 2019-10-02 07:28 | Outpatient (CLI) | payer MEDICARE, BC, SELFPAY ==
[2019-10-02 09:23] LABS: BUN Creatinine Ratio 18.2 (6-22); Blood Urea Nitrogen 27 mg/dL (7-17); Calcium 10.2 mg/dL (8.4-10.2); Carbon Dioxide 30 mmol/L (22-32); Chloride 102 mmol/L (98-107); Estimated Glomerular Filt Rate 34.8 mL/min (>60); Glucose 90 mg/dL (80-110); HEMOLYSIS < 15 (0-50); Potassium 4.9 mmol/L (3.4-5.1); Sodium 139 mmol/L (137-145)
== END ==
PROVIDERS: PCP Internal Medicine; Referring Provider Nurse Practitioner; Visit Provider Nurse Practitioner
DX: C34.90 Malignant neoplasm of unspecified part of unspecified bronchus or lung (principal)
CPT/HCPCS: 36415; 80048

== ENCOUNTER 2019-11-19 15:04 | Emergency (ER) | payer MEDICARE, BC, SELFPAY ==
[2019-11-19 15:19] VITALS: BP 135/63; PULSE 66; RESP 20; TEMP 36.6; O2SAT 98
--- NOTE | 2019-11-19 16:10 | DI.US.S_ITS ---
PROCEDURE: US PERIPH VENOUS LOW EXTREM LT INDICATIONS: Pain, swelling, Left lower leg, r/o DVT TECHNIQUE: Real-time imaging, as well as color and pulse Doppler interrogation, were performed of the lower extremity deep veins from the inguinal ligament to the popliteal fossa. COMPARISON: None. FINDINGS: The common femoral, femoral and popliteal veins are normally compressible, and free of intraluminal thrombus. Color and pulse Doppler demonstrate normal phasic intraluminal flow. There is normal augmentation response to distal compression maneuver. Posterior tibial and anterior tibial veins are patent. IMPRESSION: No left lower extremity DVT. Dictated by: Derik Grady M.D. on 11/19/2019 at 16:37 Approved by: Derik Grady M.D. on 11/19/2019 at 16:39
--- NOTE | 2019-11-19 16:28 | ED.EXTPRO ---
HPI - Extremity Problem <Glenny Green PA-C - Last Filed: 11/19/19 21:34> General Chief complaint: Extremity Problem,Nontraumatic Stated complaint: US for possible blood clot sent by Doc Time Seen by Provider: 11/19/19 16:25 Source: patient Mode of arrival: Ambulatory Limitations: no limitations History of Present Illness HPI Narrative: Is a well-appearing 79-year-old woman with a history of metastatic lung cancer with Mets to bone, Raynaud's and peripheral neuropathy who presents to the emergency department for evaluation for DVT sent here by her oncologist after a phone visit. She states that she has had a problem with swelling in her left lower leg and ankle she noticed it most prominently last night when it was more swollen than the right ankle and she had never seen it that swollen before. She says it has not affected her walking and is not particularly painful. She denies any increased shortness of breath recently, any notable heat in her left leg, any posterior knee pain, or any other symptoms. MD Complaint: extremity pain and extremity swelling Onset (ago): day(s) (One) Pain Consistency: constant and other (Has improved since last night) Location: left, lower extremity and other (Ankle and lower calf) Quality: other (Not associated with pain) Radiation: none Relieving factors: nothing Exacerbating factors: nothing Associated symptoms: denies other symptoms Context: other (Active cancer) Related Data Home Medications Medication Instructions Recorded Confirmed ondansetron HCl [Zofran] 8 mg PO PRN PRN #0 05/15/16 11/07/19 antiarthritic combination no.2 900 900 mg PO DAILY tab 09/27/17 11/07/19 mg tablet cholecalciferol (vitamin D3) 50 2,000 unit PO DAILY 09/27/17 11/07/19 mcg (2,000 unit) capsule diphenoxylate-atropine 2.5 See Rx Instructions PO .COMPLEX 09/27/17 11/07/19 mg-0.025 mg tablet PRN tab magnesium 250 mg tablet 125 mg PO DAILY 09/27/17 11/07/19 multivitamin 1 tab PO DAILY 09/27/17 11/07/19 tramadol 50 mg tablet 50 mg PO Q4H PRN tab 09/27/17 11/07/19 acetaminophen 325 mg tablet 325 mg PO DAILY PRN tab 04/08/19 11/07/19 furosemide 20 mg tablet 10 mg PO DAILY PRN 04/08/19 11/07/19 docusate sodium 100 mg capsule 100 mg PO BID PRN cap 07/14/19 11/07/19 alectinib 425 mg PO BID 09/23/19 11/07/19 Previous Rx's Medication Instructions Recorded mupirocin 2 % topical ointment 1 applic TOP TID #30 gram 11/15/19 Allergies Allergy/AdvReac Type Severity Reaction Status Date / Time No Known Drug Allergies Allergy Verified 11/07/19 14:19 Review of Systems <Glenny Green PA-C - Last Filed: 11/19/19 21:34> Review of Systems Narrative: GENERAL: Denies chills, fatigue, malaise, fever, sweats. HEENT: Denies sinus pain, ear pain, sore throat, difficulty swallowing, dizziness. RESPIRATORY: Positive for mild chronic dyspnea with exertion second to lung cancer, negative for cough, wheezing, hemoptysis, sputum. CARDIOVASCULAR: Denies chest pain, palpitations, orthopnea, edema, GASTROINTESTINAL: Denies nausea, vomiting, abdominal pain, diarrhea, constipation, melena. : Denies dysuria, frequency, incontinence, hematuria, urinary retention. MUSCULOSKELETAL: Positive for swelling of her left calf and ankle, denies weakness, joint pain, or bony pain SKIN: Denies rash, skin lesions, or other NEUROLOGIC: Denies weakness, headache, numbness, change in speech, confusion, seizures, incoordination. PSYCHIATRIC: No concerning psychosocial issues. 12 point review of systems is negative except for those stated above Patient History <Glenny Green PA-C - Last Filed: 11/19/19 21:34> Medical History Blister (Resolved) Malignant neoplasm of lung metastatic to bone (Chronic 02/12/17) Malignant neoplasm of upper lobe of right lung (Chronic 02/12/17) Metastatic bone cancer (Chronic 11/2012) Non-small cell lung cancer (NSCLC) (Chronic) Peripheral neuropathy (Chronic) Skin lesion of left lower extremity (Acute) Surgical History History of eye surgery (Resolved) History of spinal fusion (Resolved) History of toe surgery (Resolved) Status post hysterectomy with oophorectomy (Resolved) Status post knee surgery (Resolved) Status post rotator cuff repair (Resolved) Social History household members: spouse Smoking Status: Never smoker alcohol intake: current Smoking Status: Never smoker alcohol intake frequency: holidays/special occasions only Substance Use Type: does not use Exam <Glenny Green PA-C - Last Filed: 11/19/19 21:34> Narrative Exam Narrative: GENERAL: 69 year old patient appears stated age. Well-nourished, well-developed patient, in mild distress. HEAD: Atraumatic. Normocephalic. EYES: Pupils equal round and reactive. Extraocular motions intact. No scleral icterus. No injection or drainage. ENT: Nose without bleeding, purulent drainage. Throat without erythema, tonsillar hypertrophy or exudate. Airway patent. NECK: Trachea midline. Non tender CARDIOVASCULAR: Regular rate and rhythm without murmurs, gallops, or rubs. RESPIRATORY: Clear to auscultation. Breath sounds equal bilaterally. No wheezes, rales, or rhonchi. GASTROINTESTINAL: Abdomen soft, non-tender, nondistended. EXTREMITIES: There is moderate swelling of the left ankle and the left calf is slightly larger appearing in diameter than the right, on measurement at 10 cm below the tibial tuberosity the right calf is 39.5 cm in the left calf is 42 cm in circumference. There is no appreciable heat, redness or tenderness on exam of the left lower extremity, the half and popliteal fossa is without tenderness bilaterally, fossa feels slightly warm to touch, however the left and right are the same temperature No pitting edema or joint tenderness. BACK: Nontender without deformity or crepitance. No flank tenderness. NEURO: AOx3. SKIN: No rash or erythema of visible areas Initial Vital Signs Initial Vital Signs: Vital Signs Temperature 97.9 F 11/19/19 15:19 Pulse Rate 66 11/19/19 15:19 Respiratory Rate 20 11/19/19 15:19 Blood Pressure 135/63 11/19/19 15:19 Pulse Oximetry 98 11/19/19 15:19 <Ramona Pro DO - Last Filed: 11/21/19 07:13> Initial Vital Signs Initial Vital Signs: Vital Signs Temperature 97.9 F 11/19/19 15:19 Pulse Rate 66 11/19/19 15:19 Respiratory Rate 20 11/19/19 15:19 Blood Pressure 135/63 11/19/19 15:19 Pulse Oximetry 98 11/19/19 15:19 Scores <RITIKA Ji Last Filed: 11/19/19 21:34> GCS Gianluca coma scale eye opening: Spontaneous Gianluca coma scale verbal response: Orientated Gianluca coma scale motor response: Obey commands [place] coma scale total score: 15 Course <RITIKA Ji Last Filed: 11/19/19 21:34> Orders Ordered: ED Orders 11/19/19 16:10 US periph venous low extrem lt Stat Vital Signs Vital signs: Vital Signs - 8 hr 11/19/19 15:19 11/19/19 18:18 Temperature 97.9 F Pulse Rate 66 68 Respiratory Rate 20 16 Blood Pressure 135/63 121/62 Pulse Oximetry 98 95 <DO Sushila Kelley Last Filed: 11/21/19 07:13> Orders Ordered: ED Orders 11/19/19 16:10 US periph venous low extrem lt Stat Vital Signs Vital signs: Vital Signs - 8 hr 11/19/19 15:19 11/19/19 18:18 Temperature 97.9 F Pulse Rate 66 68 Respiratory Rate 20 16 Blood Pressure 135/63 121/62 Pulse Oximetry 98 95 MDM - Extremity (Nontraumatic) <RITIKA Ji Last Filed: 11/19/19 21:34> Imaging Data US - DVT: Attestation: I personally reviewed and interpreted this imaging study as follows: Radiologist's Impression: [address] [address] Ultrasound Report Signed Patient: Glenny Hope EMR#: [id number] : 9Acct:[id number] Age/Sex: 69 / FDate of Service: 11/19/19 Loc: ED Accession Number: [id number] Procedure: US periph venous low extrem lt Ordering Provider: Ramona Pro D.O. PROCEDURE: US PERIPH VENOUS LOW EXTREM LT INDICATIONS: Pain, swelling, Left lower leg, r/o DVT TECHNIQUE: Real-time imaging, as well as color and pulse Doppler interrogation, were performed of the lower extremity deep veins from the inguinal ligament to the popliteal fossa. COMPARISON: None. FINDINGS: The common femoral, femoral and popliteal veins are normally compressible, and free of intraluminal thrombus. Color and pulse Doppler demonstrate normal phasic intraluminal flow. There is normal augmentation response to distal compression maneuver. Posterior tibial and anterior tibial veins are patent. IMPRESSION: No left lower extremity DVT. Dictated by: Derik Grady M.D. on 11/19/2019 at 16:37 Approved by: Derik Grady M.D. on 11/19/2019 at 16:39 MDM Narrative Medical decision making narrative: This is a well-appearing and alert 69-year-old with active metastatic lung cancer who presents with a left ankle and calf swelling that is mild, present and developing within the last 48 hours. Sent here by her oncologist for DVT rule out. As she is a cancer patient a D-dimer is not obtained, ultrasound does not reveal evidence of a DVT, her history and exam are otherwise unremarkable and not suggestive of DVT. Labs are not obtained, I suspect that she has mild peripheral venous insufficiency that could be affecting her slight left ankle swelling I advised her to consider compression socks and follow-up with her primary care provider and her oncologist, patient is in agreement, emergency return precautions provided, all questions answered. Discharge Plan Departure Patient Disposition: Home Clinical Impression: Left ankle swelling Discharge Date/Time: 11/19/19 18:19 Instructions: DI for Edema Due to Venous Stasis, DI for Peripheral Edema-Unilateral Activity Restrictions/Additional Instructions: Thank you for allowing us to be part of her care in the emergency department today. Your ultrasound exam did not show any evidence of a DVT and I advised that you follow-up with your primary care or cancer care doctor regarding your leg swelling if you continue to have problems with it over the next few days before your appointment you can certainly try using compression socks, elevating your leg. You do have any new or concerning symptoms please do not hesitate to seek medical care. There is no evidence of an emergent or life threatening illness at this time, but follow up with your doctor in 1-2 days is recommended nonetheless to continue to rule out serious underlying causes of your symptoms. Please call the office for an appointment. Please return to the Emergency Department for any worsening or persistent symptoms. Please take medications as directed. Prescriptions: No Action mupirocin 2 % ointment 1 applic TOP TID Qty: 30 RF: 0 ondansetron HCl [Zofran] 8 MG tablet 8 mg PO PRN PRN (Reason: Nausea) Qty: 0 RF: 0 multivitamin tablet 1 tab PO DAILY RF: 0 diphenoxylate-atropine [Lomotil] 2.5-0.025 mg tablet See Rx Instructions PO .COMPLEX PRN (Reason: Diarrhea) RF: 0 tramadol 50 mg tablet 50 mg PO Q4H PRN (Reason: pain) RF: 0 magnesium 250 mg tablet 125 mg PO DAILY RF: 0 cholecalciferol (vitamin D3) 2,000 unit capsule 2,000 unit PO DAILY RF: 0 antiarthritic combination no.2 [glucosamine-chondroitin] 900 mg tablet 900 mg PO DAILY RF: 0 furosemide 20 mg tablet 10 mg PO DAILY PRN (Reason: Edema) RF: 0 acetaminophen [Tylenol] 325 mg tablet 325 mg PO DAILY PRN (Reason: Pain) RF: 0 docusate sodium [Colace] 100 mg capsule 100 mg PO BID PRN (Reason: Constipation) RF: 0 alectinib 150 mg Capsule 425 mg PO BID RF: 0 Referrals: Valentin Hernandez MD [Primary Care Provider] - <Ramona Pro DO - Last Filed: 11/21/19 07:13> Cosign ED Attending Johanna Attestation: I was immediately available in the department for consultation. Documentation has been reviewed. I agree with assessment and plan.
--- NOTE | 2019-11-19 17:07 | PC.NURSE ---
pt denies pain. states she had swelling in both ankles, pt states the left was worse. pt states the swelling went down over night. isidro pedal pulses+
[2019-11-19 18:18] VITALS: BP 121/62; PULSE 68; RESP 16; O2SAT 95
== END 2019-11-19 18:19 | disposition home or self-care (01) ==
PROVIDERS: Emergency Provider Student in an Organized Health Care Education/Training Program; Family Provider Internal Medicine; PCP Internal Medicine
DX: M25.472 Effusion, left ankle (principal)
CPT/HCPCS: 93971; 99283

== ENCOUNTER 2019-12-11 13:00 | Outpatient (RCR) | payer MEDICARE, BC, SELFPAY ==
--- NOTE | 2019-11-19 16:07 | PT.OPPOC ---
Physical, Occupational & Speech Therapy At [facility] Current Diagnoses Benign paroxysmal vertigo, unspecified ear (11/19/19) Visit Care Team Role Provider Type Valentin Hernandez MD Family Provider Physician Primary Care Provider Specialty: Internal Medicine Address: [address] [place] [address], [facility] [address], [address] Email: [email or web address] DANIEL Buchanan Attending Provider Non-Staff Referring Provider Specialty: Medical Address: [address] [place] [address], [facility] Email: Plan Of Care PT-OP-T Assessment and Plan Start: 11/17/19 13:56 Freq: Status: Active Protocol: Document 11/19/19 08:16 MB (Rec: 11/19/19 16:07 MB [id number]) Physical Therapy Assessment Rehab Potential Rehabilitation Potential Fair Evaluation Complexity Number of Personal Factors/Comorbidities 3 or More Number of Body Systems Impaired 4 or More Clinical Presentation at Evaluation Unstable Impairments Impairments Activity Tolerance,Balance, Functional Activities, Functional Mobility,Gait,Pain, Posture,ROM,Sensation,Soft Tissue Mobility,Strength, Transfers,Vestibular,Visual Motor Other Impairments Pt presents with personal factors of metastatic cancer with reports of right acetabular, iliac crest and pelvic tumor, inconsistencies with using cane (she did not bring in to PT today) and previous long course of vestibular PT that did not keep her problem under control . Body systems affected include bone, pulmonary, vestibular, integumentary (pt has large bump on anterior left thompson that she will have looked at by police officer booking next week). Her clinical presentation is unstable. Other Concerns Fall Risk Yes Goals Six [employer]ci Goal (LTG) Pt will report no falls for 2 months by 01/19/2020 to decrease injury risk. LTG Duration 8 weeks [employer] Goal (LTG) Pt will present with improved DHI score to reflect no more than low perception of handicap by 01/19/2020. LTG Duration 8 weeks Four Fci Goal (LTG) Pt will perform WNLs on Tinetti gait and balance test to decrease fall risk by 2019. LTG Duration 8 weeks Three Fci Goal (LTG) Pt will perform progressive HEP with I including postural, VOR, balance, flexibility, gait and strengthening exercises to improve balance and gait and decrease fall risk by 01/19/2020. LTG Duration 8 weeks Assessment Summary Assessment Pt is a 69 y/o female presenting with complicated clinical picture. She has personal factors of metastatic lung cancer with reports of right acetabular, iliac crest and pelvic tumor (unsure if unstable), inconsistencies with using cane (she did not bring in to PT today) and previous long course of vestibular PT that did not keep her problem under control . Body systems affected include bone, pulmonary, vestibular, integumentary (pt has large bump on anterior left thompson that she will have looked at by police officer booking next week). Her clinical presentation is unstable. PT assessment triaged today and she presents with abnormal oculomotor findings as described above including abnormal saccadic movement and convergence. Her UE coordination tests are normal and LE is deferred d/t reports of pain. She has antalgic and imbalance gait with history of near falls. She has a history of cervical surgeries and presents with limited cervical ROM and this contributes to her symptoms. Will assess for BPPV, orthostatics and further VOR and balance activities in future treatment dates. Her functional prognosis is guarded. Physical Therapy Plan Frequency and Duration Frequency of Treatment 2x/Week Duration of Treatment 8 weeks Plan of Care Start Date 11/19/19 Plan of Care End Date 01/19/20 Therapeutic Interventions Therapeutic Interventions Balance Training,Canalithic Repositioning,Coordination Training,Gait Training,Home Exercise Program,Manual Therapy,Neuromuscular Re- education,Patient/Caregiver Education,Self-Care/Home Management,Sensory Integration ,Soft Tissue Mobilization, Taping,Therapeutic Activities, Therapeutic Exercises, Vestibular Rehabilitation Next Visit Focus/Plan Next Note Type Treatment Note Next Visit Plan Assess for BPPV, orthostatics and further VOR and balance activities Plan of Care Dates Plan of Care Start Date 11/19/19 Plan of Care End Date 01/19/20 Electronically Signed by: Alexsandra Pinedo, PT 11/19/19 [id number] Please Sign and Return: I have reviewed this Plan of Care and certify that the skilled therapy services above are required to meet the patient?s needs. Physician Signature Date Printed Name and Credentials Clinical Instructor Signature Printed Name and Credentials
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
--- NOTE | 2019-12-18 08:51 | PT-OP ANOTE ---
PT calls pt to offer an appointment tomorrow. She is OOT this week and has a procedure on her leg next week. Will follow-up with PT on her next appointment on 12/29/2019.
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
== END 2019-12-29 14:13 ==
LOC: PHYS 13:00
PROVIDERS: Family Provider Internal Medicine; PCP Internal Medicine; Referring Provider Nurse Practitioner; Visit Provider Nurse Practitioner
DX: H81.10 Benign paroxysmal vertigo, unspecified ear (principal)
CPT/HCPCS: 97110; 97112; 97140; 97163; 97535

== ENCOUNTER 2019-12-22 13:28 | Emergency (ER) | payer MEDICARE, BC, SELFPAY ==
[2019-12-22 13:35] VITALS: BP 134/65; PULSE 59; RESP 18; TEMP 36.3; O2SAT 100
--- NOTE | 2019-12-22 13:43 | DI.US.S_ITS ---
PROCEDURE: [facility] VENOUS LOW EXTREM LT INDICATIONS: Left lower leg swelling TECHNIQUE: Real-time imaging, as well as color and pulse Doppler interrogation, were performed of the lower extremity deep veins from the inguinal ligament to the popliteal fossa. COMPARISON: [facility], , [facility]ENOUS LOW EXTREM LT, 11/19/2019, 17:10. FINDINGS: The common femoral, femoral and popliteal veins are normally compressible, and free of intraluminal thrombus. Color and pulse Doppler demonstrate normal phasic intraluminal flow. There is normal augmentation response to distal compression maneuver. IMPRESSION: 1. No evidence of deep venous thrombosis in the left lower extremity. Dictated by: Diogo Bond M.D. on 12/22/2019 at 13:46 Approved by: Diogo Bond M.D. on 12/22/2019 at 13:47
--- NOTE | 2019-12-22 13:52 | ED.LOWEXIN ---
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 She has been having increased left ankle and foot swelling off and on for about 1 month. She also has been having increasing shortness of breath with exertion when she goes up stairs and an elevated heart rate. She was instructed by her oncology nurse to come to the ER for evaluation. She denies any orthopnea or chest pain at rest. She has no fever. 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 There is no surrounding erythema. He says sometimes her foot and ankle swelling goes down and then it returns. She has no calf pain. Related Data Home Medications Medication Instructions Recorded Confirmed ondansetron HCl [Zofran] 8 mg PO PRN PRN #0 05/15/16 11/07/19 antiarthritic combination no.2 900 900 mg PO DAILY tab 09/27/17 11/07/19 mg tablet cholecalciferol (vitamin D3) 50 2,000 unit PO DAILY 09/27/17 11/07/19 mcg (2,000 unit) capsule diphenoxylate-atropine 2.5 See Rx Instructions PO .COMPLEX 09/27/17 11/07/19 mg-0.025 mg tablet PRN tab magnesium 250 mg tablet 125 mg PO DAILY 09/27/17 11/07/19 multivitamin 1 tab PO DAILY 09/27/17 11/07/19 tramadol 50 mg tablet 50 mg PO Q4H PRN tab 09/27/17 11/07/19 acetaminophen 325 mg tablet 325 mg PO DAILY PRN tab 04/08/19 11/07/19 furosemide 20 mg tablet 10 mg PO DAILY PRN 04/08/19 11/07/19 docusate sodium 100 mg capsule 100 mg PO BID PRN cap 07/14/19 11/07/19 alectinib 425 mg PO BID 09/23/19 11/07/19 Previous Rx's Medication Instructions Recorded mupirocin 2 % topical ointment 1 applic TOP TID #30 gram 11/15/19 Allergies Allergy/AdvReac Type Severity Reaction Status Date / Time No Known Drug Allergies Allergy Verified 11/07/19 14:19 Review of Systems Review of Systems Narrative: GENERAL: Denies chills, fatigue, malaise, fever, sweats, travel HEENT: Denies sinus pain, ear pain, sore throat, difficulty swallowing, neck pain RESPIRATORY: Denies dyspnea, cough, wheezing, hemoptysis, sputum. CARDIOVASCULAR: Denies chest pain, palpitations, orthopnea, edema GASTROINTESTINAL: Denies nausea, vomiting, abdominal pain, diarrhea, constipation, melena. : Denies dysuria, frequency, incontinence, hematuria, urinary retention, flank pain. MUSCULOSKELETAL: Denies weakness, joint pain, or bony pain SKIN: No rash, no erythema, no pruritus NEUROLOGIC: Denies weakness, dizziness, headache, numbness, change in speech, confusion PSYCHIATRIC: No concerning psychosocial issues. 12 point review of systems is negative except for those stated above and HPI Patient History Medical History (Updated 12/22/19 @ 16:59 by Ramona Pro DO) Blister (Resolved) Malignant neoplasm of lung metastatic to bone (Chronic 02/12/17) Malignant neoplasm of upper lobe of right lung (Chronic 02/12/17) Metastatic bone cancer (Chronic 11/2012) Non-small cell lung cancer (NSCLC) (Chronic) Peripheral neuropathy (Chronic) Skin lesion of left lower extremity (Acute) Surgical History History of eye surgery (Resolved) History of spinal fusion (Resolved) History of toe surgery (Resolved) Status post hysterectomy with oophorectomy (Resolved) Status post knee surgery (Resolved) Status post rotator cuff repair (Resolved) Social History household members: spouse Smoking Status: Never smoker alcohol intake: current Smoking Status: Never smoker alcohol intake frequency: holidays/special occasions only Substance Use Type: does not use Exam Initial Vital Signs Initial Vital Signs: Vital Signs Temperature 97.3 F L 12/22/19 13:35 Pulse Rate 59 L 12/22/19 13:35 Respiratory Rate 18 12/22/19 13:35 Blood Pressure 134/65 12/22/19 13:35 Pulse Oximetry 100 12/22/19 13:35 GENERAL: Alert pleasant female and in no acute distress. HEENT: Head atraumatic,EOMI, pupils reactive, face symmetric, moist mucous membranes CARDIOVASCULAR: Regular rate and rhythm without murmurs, rubs or gallops. RESPIRATORY: Breath sounds equal bilaterally, no wheezes rales or rhonchi. ABDOMEN: Soft, nontender. Normoactive bowel sounds all 4 quadrants. No guarding or rebound. EXTREMITIES: Normal range of motion, no clubbing. Minimal swelling fall left ankle no calf pain nose significant swelling of left leg. Neurovascularly intact NEUROLOGICAL: Alert and oriented x4.Normal gait and speech. SKIN: Warm, dry, no laceration, no petechiae, no rashes or lesions. Course Orders Ordered: ED Orders 12/22/19 13:43 US periph venous low extrem lt Stat 12/22/19 14:01 Consult to Respiratory Therapy Evaluate & Treat EKG-12 Lead Stat 12/22/19 14:02 CT angio chest PE protocol Stat 12/22/19 15:00 Complete Blood Count AUTO DIFF Stat Comprehensive Metabolic Panel Stat NT-proBNP (BNP-Adult 18+) Stat Partial Thromboplastin Time Stat Prothrombin Time INR Stat Troponin & CK Cardiac Panel Stat Vital Signs Vital signs: Vital Signs - 8 hr 12/22/19 13:35 12/22/19 16:04 12/22/19 16:09 Temperature 97.3 F L Pulse Rate 59 L 63 Respiratory Rate 18 Blood Pressure 134/65 148/63 H Pulse Oximetry 100 99 12/22/19 16:18 12/22/19 16:30 12/22/19 17:00 Temperature Pulse Rate 58 L Respiratory Rate Blood Pressure 126/58 L 127/61 Pulse Oximetry 99 MDM - Extremity Injury (Lower) Lab Data Attestation: I reviewed the patient's lab results. Result diagrams: 12/22/19 15:00 12/22/19 15:00 Labs: Lab Results 12/22/19 12/22/19 12/22/19 Range/Units 15:00 15:00 15:00 WBC 4.5 (4.5-11.0) X10^3/uL RBC 3.68 L (4.0-5.2) X10^6/uL Hgb 9.7 L (12.0-16.0) g/dL Hct 29.3 L (36-46) % MCV 79.5 L (80-100) fL MCH 26.3 (26-34) PG MCHC 33.0 (30-36) % RDW 18.6 H (11.6-14.8) % Plt Count 343 (150-400) X10^3/uL Neut % (Auto) 73.3 (50-75) % Lymph % (Auto) 15.6 L (25-40) % [place] % (Auto) 7.6 (3-14) % Eos % (Auto) 2.5 (2-4) % Baso % (Auto) 1.0 (0-2) % Neut # (Auto) 3300 (1497-1207) /uL Lymph # (Auto) 700 L (7146-0057) /uL [place] # (Auto) 300 (0-900) /uL Eos # (Auto) 100 (0-450) /uL Baso # (Auto) 0 (0-100) /uL PT 11.6 (10.1-12.7) SECONDS INR 1.0 (0.9-1.3) APTT 38 H (26.4-36.2) SECONDS Sodium (137-145) mmol/L Potassium (3.4-5.1) mmol/L Chloride (98-107) mmol/L Carbon Dioxide (22-32) mmol/L BUN (7-17) mg/dL Creatinine (0.52-1.04) mg/dL Estimated GFR (>60) mL/min BUN/Creatinine Ratio (6-22) Glucose (80-110) mg/dL Calcium (8.4-10.2) mg/dL Total Bilirubin (0.2-1.3) mg/dL AST (14-36) IU/L ALT (<35) IU/L Alkaline Phosphatase (38-126) U/L Total Creatine Kinase 54 (30-135) U/L CK-MB (CK-2) TNP CK-MB (CK-2) Rel Index TNP Troponin I < 0.012 (0.01-0.034) ng/mL NT-Pro-B Natriuret Pep 440 H (<125) pg/mL Total Protein (6.3-8.2) g/dL Albumin (3.5-5.0) g/dL Globulin (1.7-4.1) g/dL Albumin/Globulin Ratio (1.0-2.8) 12/22/19 Range/Units 15:00 WBC (4.5-11.0) X10^3/uL RBC (4.0-5.2) X10^6/uL Hgb (12.0-16.0) g/dL Hct (36-46) % MCV (80-100) fL MCH (26-34) PG MCHC (30-36) % RDW (11.6-14.8) % Plt Count (150-400) X10^3/uL Neut % (Auto) (50-75) % Lymph % (Auto) (25-40) % [place] % (Auto) (3-14) % Eos % (Auto) (2-4) % Baso % (Auto) (0-2) % Neut # (Auto) (3876-9928) /uL Lymph # (Auto) (2886-8974) /uL [place] # (Auto) (0-900) /uL Eos # (Auto) (0-450) /uL Baso # (Auto) (0-100) /uL PT (10.1-12.7) SECONDS INR (0.9-1.3) APTT (26.4-36.2) SECONDS Sodium 139 (137-145) mmol/L Potassium 3.8 (3.4-5.1) mmol/L Chloride 100 (98-107) mmol/L Carbon Dioxide 31 (22-32) mmol/L BUN 24 H (7-17) mg/dL Creatinine 1.30 H (0.52-1.04) mg/dL Estimated GFR 40.4 L (>60) mL/min BUN/Creatinine Ratio 18.5 (6-22) Glucose 82 (80-110) mg/dL Calcium 9.3 (8.4-10.2) mg/dL Total Bilirubin 0.5 (0.2-1.3) mg/dL AST 27 (14-36) IU/L ALT 15 (<35) IU/L Alkaline Phosphatase 152 H (38-126) U/L Total Creatine Kinase (30-135) U/L CK-MB (CK-2) CK-MB (CK-2) Rel Index Troponin I (0.01-0.034) ng/mL NT-Pro-B Natriuret Pep (<125) pg/mL Total Protein 7.3 (6.3-8.2) g/dL Albumin 4.1 (3.5-5.0) g/dL Globulin 3.2 (1.7-4.1) g/dL Albumin/Globulin Ratio 1.3 (1.0-2.8) Imaging Data CT scan - chest: Radiologist's Impression: PROCEDURE: CT ANGIO CHEST PE PROTOCOL INDICATIONS: sob with known cancer TECHNIQUE: After the administration of intravenous contrast, 2 mm thick sections acquired from the pulmonary apices to the posterior costophrenic angles. 3-dimensional maximum intensity projection (MIP) coronal and sagittal reformats were then acquired through the thorax. For radiation dose reduction, the following was used: automated exposure control, adjustment of mA and/or kV according to patient size. COMPARISON: [facility], MR, MR LUMBAR SPINE WITH/WITHOUT CONTRAST, 03/14/2019, 11:00. [facility], CT, CT CHEST W CON, 06/19/2019, 12:11. FINDINGS: Image quality: Excellent. Pulmonary arteries: Pulmonary arteries are normal in size, and demonstrate no intraluminal filling defects to suggest central pulmonary embolism. Lungs and pleura: The previously identified right upper lobe mass has decreased in size currently measuring 15 mm AP x 56 mm transverse compared to 26 mm AP x 16 mm transverse. Areas of small scattered satellite nodular opacities are noted in the right apex, also less prominent. Mediastinum: Heart size is mildly enlarged, without pericardial effusion. No mediastinal or hilar adenopathy. Thoracic aorta is normal in caliber and enhancement. Esophagus is normal in caliber, without hiatal hernia. Bones and chest wall: There is sclerosis of the right 9th lateral rib without visualized fracture. In addition, increased sclerosis is noted within the left scapula. Scapular focus is unchanged. The rib focus appears new versus minimally subtly present on prior exam. Similar appearance is noted in the right posterior T12 rib. Increased sclerosis is present within the T10 vertebral body, unchanged. Prominent sclerosis L2 and L3 vertebral bodies, not occluded within the field of view on prior exam. In addition Ribs and thoracic spine appear intact throughout. Thyroid gland is unremarkable . No axillary or supraclavicular adenopathy. Abdomen: Unchanged punctate low-attenuation hepatic foci are present. Visualized upper abdominal solid organs appear normal in the early arterial phase of enhancement. IMPRESSION: 1. No pulmonary embolism. 2. Interval decrease in size of right pulmonary mass. 3. Areas of stable sclerotic osseous foci as above most suggestive of metastatic disease. While some are stable, others appear new/progressive while the foci in the lumbar spine were not included within the field of view on recent prior exams and unable to be evaluated for chronicity. Dictated by: Marcelle Frederick M.D. on 12/22/2019 at 16:41 US - DVT: Radiologist's Impression: PROCEDURE: US PERIP VENOUS LOW EXTREM LT INDICATIONS: Left lower leg swelling TECHNIQUE: Real-time imaging, as well as color and pulse Doppler interrogation, were performed of the lower extremity deep veins from the inguinal ligament to the popliteal fossa. [facility] VENOUS LOW EXTREM LT, 11/19/2019, 17:10. FINDINGS: The common femoral, femoral and popliteal veins are normally compressible, and free of intraluminal thrombus. Color and pulse Doppler demonstrate normal phasic intraluminal flow. There is normal augmentation response to distal compression maneuver. IMPRESSION: 1. No evidence of deep venous thrombosis in the left lower extremity. Dictated by: Diogo Bond M.D. on 12/22/2019 at 13:46 ECG Data Attestation: I personally reviewed and interpreted this ECG as follows: Prior ECG tracings: available for review Interpretation: Rhythm rate 56 p.r. interval 162 QRS [address] changes MDM Narrative Medical decision making narrative: Of DVT or pulmonary embolism. Blood work is overall reassuring. She is having increasing shortness of breath with exertion however troponin is negative. This has been ongoing for a month. At this time I recommend outpatient stress test which can be arranged with [facility] or with her primary care provider. At this time I recommend she follow-up with her oncologist. Discharge Plan Departure Patient Disposition: Home Clinical Impression: Edema, peripheral Discharge Date/Time: 12/22/19 17:11 Instructions: DI for Peripheral Edema-Unilateral Activity Restrictions/Additional Instructions: *You have been diagnosed with peripheral edema *What to do: At this time there is absolutely no evidence of a blood clot in her leg or her lungs. Her blood work is overall reassuring please follow-up with your oncologist You may require a cardiac stress test please talk with [facility] or your primary care provider *Continue to take medications as directed *Follow up with your primary care provider in 2-3 days *Return to ER if you should have swelling, redness, chest pain, shortness of breath passing or any new, worsening or concerning symptoms Prescriptions: No Action mupirocin 2 % ointment 1 applic TOP TID Qty: 30 RF: 0 ondansetron HCl [Zofran] 8 MG tablet 8 mg PO PRN PRN (Reason: Nausea) Qty: 0 RF: 0 multivitamin tablet 1 tab PO DAILY RF: 0 diphenoxylate-atropine [Lomotil] 2.5-0.025 mg tablet See Rx Instructions PO .COMPLEX PRN (Reason: Diarrhea) RF: 0 tramadol 50 mg tablet 50 mg PO Q4H PRN (Reason: pain) RF: 0 magnesium 250 mg tablet 125 mg PO DAILY RF: 0 cholecalciferol (vitamin D3) 2,000 unit capsule 2,000 unit PO DAILY RF: 0 antiarthritic combination no.2 [glucosamine-chondroitin] 900 mg tablet 900 mg PO DAILY RF: 0 furosemide 20 mg tablet 10 mg PO DAILY PRN (Reason: Edema) RF: 0 acetaminophen [Tylenol] 325 mg tablet 325 mg PO DAILY PRN (Reason: Pain) RF: 0 docusate sodium [Colace] 100 mg capsule 100 mg PO BID PRN (Reason: Constipation) RF: 0 alectinib 150 mg Capsule 425 mg PO BID RF: 0 Referrals: Valentin Hernandez MD [Primary Care Provider] -
--- NOTE | 2019-12-22 14:02 | DI.CT.S_ITS ---
PROCEDURE: CT ANGIO CHEST PE PROTOCOL INDICATIONS: sob with known cancer TECHNIQUE: After the administration of intravenous contrast, 2 mm thick sections acquired from the pulmonary apices to the posterior costophrenic angles. 3-dimensional maximum intensity projection (MIP) coronal and sagittal reformats were then acquired through the thorax. For radiation dose reduction, the following was used: automated exposure control, adjustment of mA and/or kV according to patient size. COMPARISON: [facility], MR, MR LUMBAR SPINE WITH/WITHOUT CONTRAST, 03/14/2019, 11:00. [facility], CT, CT CHEST W CON, 06/19/2019, 12:11. FINDINGS: Image quality: Excellent. Pulmonary arteries: Pulmonary arteries are normal in size, and demonstrate no intraluminal filling defects to suggest central pulmonary embolism. Lungs and pleura: The previously identified right upper lobe mass has decreased in size currently measuring 15 mm AP x 56 mm transverse compared to 26 mm AP x 16 mm transverse. Areas of small scattered satellite nodular opacities are noted in the right apex, also less prominent. Mediastinum: Heart size is mildly enlarged, without pericardial effusion. No mediastinal or hilar adenopathy. Thoracic aorta is normal in caliber and enhancement. Esophagus is normal in caliber, without hiatal hernia. Bones and chest wall: There is sclerosis of the right 9th lateral rib without visualized fracture. In addition, increased sclerosis is noted within the left scapula. Scapular focus is unchanged. The rib focus appears new versus minimally subtly present on prior exam. Similar appearance is noted in the right posterior T12 rib. Increased sclerosis is present within the T10 vertebral body, unchanged. Prominent sclerosis L2 and L3 vertebral bodies, not occluded within the field of view on prior exam. In addition Ribs and thoracic spine appear intact throughout. Thyroid gland is unremarkable . No axillary or supraclavicular adenopathy. Abdomen: Unchanged punctate low-attenuation hepatic foci are present. Visualized upper abdominal solid organs appear normal in the early arterial phase of enhancement. IMPRESSION: 1. No pulmonary embolism. 2. Interval decrease in size of right pulmonary mass. 3. Areas of stable sclerotic osseous foci as above most suggestive of metastatic disease. While some are stable, others appear new/progressive while the foci in the lumbar spine were not included within the field of view on recent prior exams and unable to be evaluated for chronicity. Dictated by: Marcelle Frederick M.D. on 12/22/2019 at 16:41 Approved by: Marcelle Frederick M.D. on 12/22/2019 at 16:51
[2019-12-22 15:04] LABS: Add Manual Diff / Slide Review NO; Basophils Absolute Auto 0 /uL (0-100); Eosinophils Absolute Auto 100 /uL (0-450); Eosinophils Percent Auto 2.5 % (2-4); Hematocrit 29.3 % (36-46); Hemoglobin 9.7 g/dL (12.0-16.0); Lymphocytes Absolute Auto 700 /uL (1100-4500); Lymphocytes Percent Auto 15.6 % (25-40); Mean Corpuscular Hemoglobin 26.3 PG (26-34); Mean Corpuscular Volume 79.5 fL (80-100); Monocytes Absolute Auto 300 /uL (0-900); Monocytes Percent Auto 7.6 % (3-14); Neutrophils Absolute Auto 3300 /uL (1500-7000); Neutrophils Percent Auto 73.3 % (50-75); Platelet Count 343 X10^3/uL (150-400); Red Blood Cell Count 3.68 X10^6/uL (4.0-5.2); Red Cell Distribution Width 18.6 % (11.6-14.8); White Blood Cell Count 4.5 X10^3/uL (4.5-11.0)
[2019-12-22 15:14] LABS: Prothrombin Time 11.6 SECONDS (10.1-12.7)
[2019-12-22 15:17] LABS: Creatine Kinase 54 U/L (30-135); PTT Partial Thromboplastin Tim 38 SECONDS (26.4-36.2)
[2019-12-22 15:30] LABS: NT-proBNP (BNP-Adult 18+) 440 pg/mL (<125); Troponin I < 0.012 ng/mL (0.01-0.034)
[2019-12-22 15:53] LABS: Alanine Aminotransferase 15 IU/L (<35); Albumin 4.1 g/dL (3.5-5.0); Albumin Globulin Ratio 1.3 (1.0-2.8); Alkaline Phosphatase 152 U/L (38-126); Aspartate Aminotransferase 27 IU/L (14-36); BUN Creatinine Ratio 18.5 (6-22); Bilirubin Total 0.5 mg/dL (0.2-1.3); Blood Urea Nitrogen 24 mg/dL (7-17); Calcium 9.3 mg/dL (8.4-10.2); Carbon Dioxide 31 mmol/L (22-32); Chloride 100 mmol/L (98-107); Estimated Glomerular Filt Rate 40.4 mL/min (>60); Globulin 3.2 g/dL (1.7-4.1); Glucose 82 mg/dL (80-110); HEMOLYSIS < 15 (0-50); Potassium 3.8 mmol/L (3.4-5.1); Sodium 139 mmol/L (137-145); Total Protein 7.3 g/dL (6.3-8.2)
[2019-12-22 16:04] VITALS: BP 148/63
[2019-12-22 16:09] VITALS: PULSE 63; O2SAT 99
[2019-12-22 16:18] VITALS: PULSE 58; O2SAT 99
[2019-12-22 16:30] VITALS: BP 126/58
[2019-12-22 17:00] VITALS: BP 127/61
== END 2019-12-22 17:11 | disposition home or self-care (01) ==
PROVIDERS: Emergency Provider Emergency Medicine; Family Provider Internal Medicine; PCP Internal Medicine
DX: R60.9 Edema, unspecified (principal); R06.02 Shortness of breath; C34.90 Malignant neoplasm of unspecified part of unspecified bronchus or lung; C44.729 Squamous cell carcinoma of skin of left lower limb, including hip
CPT/HCPCS: 36415; 71275; 80053; 82550; 83880; 84484; 85025; 85610; 85730; 93005; 93971; 99284; Q9967

== ENCOUNTER → 2020-07-06 09:13 | Outpatient (CLI) | payer MEDICARE, BC, SELFPAY ==
--- NOTE | 2020-07-06 09:15 | DI.MRI.S_ITS ---
PROCEDURE: MR LUMBAR SPINE WO/W CON INDICATIONS: Spondylosis w/o myelopathy or radiculopathy TECHNIQUE: Noncontrast sagittal T1 spin echo and T2 fast spin echo, sagittal STIR, axial T1 and T2 fast spin echo through the lumbar spine. In cases with scoliosis, additional coronal T2 fast spin echo may be performed. After the administration of contrast, sagittal and axial T1 spin echo with fat saturation through the lumbar spine. COMPARISON: [facility], MR, MR PELVIS WO/W CON, 07/06/2020, 10:03. [facility] [place], MR, MR LUMBAR SPINE WITHOUT CONTRAST, 09/27/2017, 9:17. [facility], MR, MR LUMBAR SPINE WITH/WITHOUT CONTRAST, 03/14/2019, 11:00. FINDINGS: Image quality: Fair motion Alignment and curvature: There is minimal retrolisthesis seen at L2-L3, L3-L4, and L5-S1. Marrow: Areas of abnormal bone marrow signal can again be seen, with decreased T1 weighted signal with increased T2 weighted/STIR signal and increased enhancement within the L1 vertebral body. The extent of this abnormality has expanded since the 03/14/2019 examination. Milder abnormalities can be seen at S1, S2, and S3, which are also progressed compared to the prior examination. Spinal cord: Conus medullaris terminates at the L1 level. Visualized spinal cord demonstrates normal signal, without suspicious enhancement. Paraspinous soft tissues: No paravertebral masses or abnormal enhancement. T12-L1: No significant abnormality is seen. L1-L2: The disc height is well-preserved. Loss of disc signal is seen at this level. Mild to moderate disc bulge is seen. At least moderate facet hypertrophy is seen. There is [id number] right-sided and moderate left-sided neural foraminal narrowing seen. At least moderate central canal narrowing can be seen. These imaging findings have progressed compared to the prior study. L2-L3: Moderate to severe loss of disc height and disc signal can be seen. Reactive marrow endplate changes are seen, which are hyperintense on T1-weighted and T2-weighted imaging and most consistent with fatty metaplasia (Modic type II changes). At least moderate disc bulge is seen. Bridging endplate osteophytes are seen. Moderate facet joint hypertrophy is seen. Mild to moderate bilateral neural foraminal narrowing can be seen. At least moderate central canal narrowing can be seen. These degenerative changes are slightly progressed compared to the prior. L3-L4: Moderate loss of disc height is seen. Loss of disc signal is seen. At least moderate disc bulge is seen. Mild to moderate facet hypertrophy is seen. There is mild left-sided and moderate right-sided neural foraminal narrowing seen. Moderate central canal narrowing is seen. Slight progression of degenerative change compared to the prior. L4-L5: Moderate loss of disc height is seen. Loss of disc signal is seen. At least moderate disc bulge is seen, with a central disc protrusion. At least moderate facet hypertrophy is seen. There is at least moderate right-sided and moderate to severe left-sided neural foraminal narrowing seen. There is a degree of compression seen upon the exiting L4 nerve roots, left worse than right. At least moderate central canal narrowing is seen. When compared to 2019, the degenerative changes at this level are similar. L5-S1: Moderate to severe loss of disc height and disc signal can be seen. Bridging endplate osteophytes are seen. Moderate disc bulge is seen, which is eccentric to the left. There is at least moderate facet hypertrophy seen. There is moderate to severe bilateral neural foraminal narrowing seen. There is a degree of compression seen upon the exiting nerve roots. Mild central canal narrowing is seen. When comparison is made with the prior examination, these findings are similar. IMPRESSION: Worsening of metastatic disease until proven otherwise at L1, S1, S2, and S3. Multiple levels of lumbar spine degenerative change are also seen, which are progressed at several levels compared to the prior MRI. Compression is seen upon the exiting L4 and L5 nerve roots from neural foraminal narrowing. Dictated by: Eddie Lux M.D. on 07/06/2020 at 12:13 Approved by: Eddie Lux M.D. on 07/06/2020 at 12:20
--- NOTE | 2020-07-06 09:15 | DI.MRI.S_ITS ---
PROCEDURE: MR PELIS WO/W CON INDICATIONS: Spondylosis w/o myelopathy or radiculopathy TECHNIQUE: Noncontrast axial and oblique coronal T1 spin echo and STIR through the sacroiliac joints. COMPARISON: [facility], MR, MR PELVIS WITH/WITHOUT CONTRAST, 03/14/2019, 11:00. [facility], CR, XR HIP W PEL IF DONE RT 2V, 07/14/2019, 11:26. Outside Film, MR, MR HIP RIGHT WITH/WITHOUT CONTRAST, 07/31/2019, 12:17. FINDINGS: Image quality: Excellent. Bones: Extensive T2 hyperintense signal involving left sacrum extending to left sacroiliac joint is seen. Similar marrow signal abnormality is noted involving left superior and inferior pubic rami as well as left acetabulum. Extensive heterogeneous marrow T2 hyper 0st intense signal throughout lateral portion of right sacrum adjacent to sacroiliac joint, throughout left iliac bone extending to involve left acetabulum as well as left superior and inferior pubic rami and in right femoral neck. There is heterogeneous contrast enhancement in the above-mentioned area. Age indeterminate, likely pathologic fracture involving right superior and inferior pubic rami are seen. Overall finding has progressed since 07/31/2019 study within right hip particularly in right iliac bone and right femoral head and neck region. No obvious avascular necrosis of femoral head is seen. Densely sclerotic and nonenhancing focus involving left iliac bone adjacent to sacroiliac joint is seen likely represent focal bone island versus treated lesion. Soft tissues: There is extensive edema throughout right pelvic floor muscles which is new since 07/31/2019 study. Similar edema involving deep portion of right gluteus tk muscle is also seen. No full-thickness tendon or muscle rupture. Heterogeneous contrast enhancement in the above-mentioned right earline pelvic muscles are seen. No presacral masses. Rectum appears normal in caliber and wall thickness. No pathologic free pelvic fluid. IMPRESSION: 1. Finding is consistent with worsening bony metastasis within pelvis and bilateral hip with now new disease seen in the region of right femoral head and neck as well as increasing size of metastatic lesions within bilateral sacrum, iliac bone and acetabulum. 2. Age indeterminate and possibly pathologic fractures are seen involving right superior and inferior pubic rami. This was not definitively seen on 07/31/2019 study. 3. Interval development of significant right earline pelvic floor muscle edema and enhancement as well as edema involving deep portion of right gluteus tk muscle. Finding may represent muscle strain/low to moderate grade partial-thickness tear given presence of adjacent right pubic rami fractures. Tumor mass infiltration of the right hemipelvic musculatures cannot be entirely excluded. Dictated by: Reilly Warner M.D. on 07/06/2020 at 15:57 Approved by: Reilly Warner M.D. on 07/06/2020 at 17:36
== END ==
PROVIDERS: Family Provider Internal Medicine; PCP Internal Medicine; Referring Provider Physical Medicine & Rehabilitation; Visit Provider Physical Medicine & Rehabilitation
DX: C80.1 Malignant (primary) neoplasm, unspecified (principal); C79.51 Secondary malignant neoplasm of bone; S32.591A Other specified fracture of right pubis, initial encounter for closed fracture; M48.062 Spinal stenosis, lumbar region with neurogenic claudication; M47.816 Spondylosis without myelopathy or radiculopathy, lumbar region; M47.817 Spondylosis without myelopathy or radiculopathy, lumbosacral region
CPT/HCPCS: 72158; 72197; A9579

== ENCOUNTER 2020-08-10 20:18 | Emergency (ER) | payer MEDICARE, BC, SELFPAY ==
[2020-08-10 20:20] VITALS: BP 166/71; PULSE 92; RESP 20; TEMP 36.7; O2SAT 99
--- NOTE | 2020-08-10 21:05 | DI.RAD.S_ITS ---
PROCEDURE: XR ABDOMEN 1V INDICATIONS: abd pain/constipation TECHNIQUE: One view of the abdomen acquired. COMPARISON: [facility], CR, XR ABDOMEN MIN 2V, 04/07/2019, 7:29. FINDINGS: Surgical changes and devices: None. Bowel: Moderate stool is present. No transition point identified. Soft tissues: No suspicious abdominal calcifications. Visualized solid organ contours appear normal in size. Bones: Areas of sclerosis involving the right and left ilium are grossly unchanged. Lumbar spondylosis and facet arthropathy. IMPRESSION: No specific evidence of bowel obstruction seen at this time although if the patient's symptoms do not improve, continued surveillance with abdominal series radiographs could be performed. Moderate stool Dictated by: Clif Fuentes M.D. on 08/10/2020 at 21:31 Approved by: Clif Fuentes M.D. on 08/10/2020 at 21:32
--- NOTE | 2020-08-10 21:08 | ED_ITS ---
HPI - Abdominal Pain General Chief Complaint: Abdominal Pain Stated Complaint: constipation Time Seen by Provider: 08/10/20 20:59 Source: patient Mode of arrival: Ambulatory History of Present Illness HPI narrative: Patient complains of constipation. Ongoing for the past 2 days. History of constipation in the past. Has been seen here in the past for enemas. Patient has history of metastatic lung cancer. Is on tramadol. Patient states feels the same as constipation in the past. Nothing different. No nausea or vomiting. Has little stool output when she tries. No urinary complaints Related Data Home Medications Medication Instructions Recorded Confirmed ondansetron HCl [Zofran] 8 mg PO PRN PRN #0 05/15/16 06/15/20 antiarthritic combination no.2 900 900 mg PO DAILY tab 09/27/17 06/15/20 mg tablet cholecalciferol (vitamin D3) 50 2,000 unit PO DAILY 09/27/17 06/15/20 mcg (2,000 unit) capsule diphenoxylate-atropine 2.5 See Rx Instructions PO .COMPLEX 09/27/17 06/15/20 mg-0.025 mg tablet PRN tab magnesium 250 mg tablet 125 mg PO DAILY 09/27/17 06/15/20 multivitamin 1 tab PO DAILY 09/27/17 06/15/20 tramadol 50 mg tablet 50 mg PO Q4H PRN tab 09/27/17 06/15/20 acetaminophen 325 mg tablet 325 mg PO DAILY PRN tab 04/08/19 06/15/20 furosemide 20 mg tablet 10 mg PO DAILY PRN 04/08/19 06/15/20 docusate sodium 100 mg capsule 100 mg PO BID PRN cap 07/14/19 06/15/20 Allergies Allergy/AdvReac Type Severity Reaction Status Date / Time No Known Drug Allergies Allergy Verified 06/15/20 10:23 Review of Systems Review of Systems Narrative: GENERAL: Denies chills, fatigue, malaise, fever, sweats. 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) Malignant neoplasm of upper lobe of right lung (02/12/17) Metastatic bone cancer (11/2012) Non-small cell lung cancer (NSCLC) Peripheral neuropathy Surgical History History of eye surgery History of spinal fusion History of toe surgery Status post hysterectomy with oophorectomy Status post knee surgery Status post rotator cuff repair Social History household members: spouse Smoking Status: Never smoker alcohol intake: current Smoking Status: Never smoker alcohol intake frequency: holidays/special occasions only Substance Use Type: does not use Exam Narrative Exam Narrative: GENERAL: in no distress, not toxic not dyspneic HEAD: Normocephalic. EYES: Pupils equal round No scleral icterus. No injection no discharge ENT: Mucous membranes moist. NECK: Trachea midline. CARDIOVASCULAR: Regular rate and rhythm without murmurs RESPIRATORY: Clear to auscultation. Breath sounds equal bilaterally. No wheezes, rales, or rhonchi. GASTROINTESTINAL: Abdomen soft, non-tender, bowel sounds present, no peritoneal signs, no pain out of proportion to exam EXTREMITIES: No gross deformities. BACK: No flank tenderness. NEURO: AOx4. SKIN: Warm and dry PSYCH: Not anxious, is cooperative Initial Vital Signs Initial Vital Signs: Vital Signs Temperature 98.0 F 08/10/20 20:20 Pulse Rate 92 H 08/10/20 20:20 Respiratory Rate 20 08/10/20 20:20 Blood Pressure 166/71 H 08/10/20 20:20 Pulse Oximetry 99 08/10/20 20:20 Course Course Course Narrative: No new issues during course of stay Orders Ordered: ED Orders 08/10/20 21:05 XR abdomen 1V Stat Discontinued Medications Mineral Oil (Mineral Oil 1 Each Enema) 1 each SD NOW ONE Stop: 08/10/20 21:07 Last Admin: 08/10/20 21:31 Dose: 1 each Documented by: ABDOUL Reevaluation(s) Reevaluation #1: Had good bowel movement after enema here. Desires discharge home. Patient agrees no indication for laboratory studies. Time: 22:40 Vital Signs Vital signs: Vital Signs - 8 hr 08/10/20 20:20 08/10/20 21:49 Temperature 98.0 F Pulse Rate 92 H 88 Respiratory Rate 20 18 Blood Pressure 166/71 H 160/74 H Pulse Oximetry 99 98 MDM - Abdominal Pain Differential Diagnosis Differential diagnosis: Likely abdominal pain, constipation and small bowel obstruction Medical Records Attestation: I reviewed the patient's medical records. Imaging Data Abdominal x-ray: Radiologist's Impression: [address] [id number] ReportSigned Patient: Glenny Hope EMR#: [id number]: 9Acct:[id number]/Sex: 70 / FDate of Service: 08/10/20Loc: EDAccession Number: [id number] Procedure: XR abdomen 1V Ordering Provider: Venancio Bradshaw MD PROCEDURE: XR ABDOMEN 1V INDICATIONS: abd pain/constipation TECHNIQUE: One view of the abdomen acquired. COMPARISON: [facility], , XR ABDOMEN MIN 2V, 04/07/2019, 7:29. FINDINGS: Surgical changes and devices: None. Bowel: Moderate stool is present. No transition point identified. Soft tissues: No suspicious abdominal calcifications. Visualized solid organ contours appear normal in size. Bones: Areas of sclerosis involving the right and left ilium are grossly unchanged. Lumbar spondylosis and facet arthropathy. IMPRESSION: No specific evidence of bowel obstruction seen at this time although if the patient's symptoms do not improve, continued surveillance with abdominal series radiographs could be performed. Moderate stool Dictated by: Clif Fuentes M.D. on 08/10/2020 at 21:31 Approved by: Clif Fuentes M.D. on 08/10/2020 at 21:32 MDM Narrative Medical decision making narrative: Appropriate for discharge home. Patient states had good bowel movement after enema. Desires discharge home. Feeling much better. Discharge Plan Departure Patient Disposition: Home Clinical Impression: Constipation Qualifiers: Constipation type: unspecified constipation type Qualified Code(s): K59.00 - Constipation, unspecified Instructions: DI for Constipation Activity Restrictions/Additional Instructions: Keep well hydrated. Return if worse. Continue home stool softeners. Return if worse if any questions or concerns. Eat plenty of daily vegetables fruits or salads. Prescriptions: No Action ondansetron HCl [Zofran] 8 MG tablet 8 mg PO PRN PRN (Reason: Nausea) Qty: 0 RF: 0 multivitamin tablet 1 tab PO DAILY RF: 0 diphenoxylate-atropine [Lomotil] 2.5-0.025 mg tablet See Rx Instructions PO .COMPLEX PRN (Reason: Diarrhea) RF: 0 tramadol 50 mg tablet 50 mg PO Q4H PRN (Reason: pain) RF: 0 magnesium 250 mg tablet 125 mg PO DAILY RF: 0 cholecalciferol (vitamin D3) 2,000 unit capsule 2,000 unit PO DAILY RF: 0 antiarthritic combination no.2 [glucosamine-chondroitin] 900 mg tablet 900 mg PO DAILY RF: 0 furosemide 20 mg tablet 10 mg PO DAILY PRN (Reason: Edema) RF: 0 acetaminophen [Tylenol] 325 mg tablet 325 mg PO DAILY PRN (Reason: Pain) RF: 0 docusate sodium [Colace] 100 mg capsule 100 mg PO BID PRN (Reason: Constipation) RF: 0 Referrals: Valentin Hernandez MD [Primary Care Provider] -
[2020-08-10] MEDS: MINERAL OIL 1 EACH ENEMA PR (21:31)
[2020-08-10 21:49] VITALS: BP 160/74; PULSE 88; RESP 18; O2SAT 98
--- NOTE | 2020-08-10 22:48 | PC.NURSE ---
She had formed BM and returned soft brown with it,felt better and wanted to go home.
== END 2020-08-10 22:49 | disposition home or self-care (01) ==
PROVIDERS: Emergency Provider Emergency Medicine; Family Provider Internal Medicine; PCP Internal Medicine
DX: K59.00 Constipation, unspecified (principal)
CPT/HCPCS: 74018; 99283

== ENCOUNTER 2020-11-09 09:35 | Emergency (ER) | payer MEDICARE, BC, SELFPAY ==
[2020-11-09 09:49] VITALS: BP 122/57; PULSE 77; RESP 16; O2SAT 97; BMI 23.9
[2020-11-09 10:16] VITALS: BP 155/70; PULSE 92; O2SAT 96
--- NOTE | 2020-11-09 10:24 | ED.GENADULT ---
HPI - General Adult General Chief complaint: Nasal Problem Stated complaint: BLOODY NOSE Time Seen by Provider: 11/09/20 10:17 Source: patient Mode of arrival: Ambulatory Limitations: no limitations History of Present Illness HPI narrative: Patient is a 70-year-old female. Not on anticoagulation who is here for evaluation of right-sided nose bleed. It occurred this morning when she was sitting at the table. There was no trauma. Started bleeding on its own. She did try some Afrin at home. Has had nosebleeds in the past a nose clamp was placed in triage. Related Data Home Medications Medication Instructions Recorded Confirmed ondansetron HCl 8 mg tablet 8 mg PO PRN PRN #0 05/15/16 06/15/20 (Zofran) antiarthritic combination no.2 900 900 mg PO DAILY tab 09/27/17 06/15/20 mg tablet (glucosamine-chondroitin) cholecalciferol (vitamin D3) 50 2,000 unit PO DAILY 09/27/17 06/15/20 mcg (2,000 unit) capsule diphenoxylate-atropine 2.5 See Rx Instructions PO .COMPLEX 09/27/17 06/15/20 mg-0.025 mg tablet (Lomotil) PRN tab magnesium 250 mg tablet 125 mg PO DAILY 09/27/17 06/15/20 multivitamin 1 tab PO DAILY 09/27/17 06/15/20 tramadol 50 mg tablet 50 mg PO Q4H PRN tab 09/27/17 06/15/20 acetaminophen 325 mg tablet 325 mg PO DAILY PRN tab 04/08/19 06/15/20 (Tylenol) furosemide 20 mg tablet 10 mg PO DAILY PRN 04/08/19 06/15/20 docusate sodium 100 mg capsule 100 mg PO BID PRN cap 07/14/19 06/15/20 (Colace) Allergies Allergy/AdvReac Type Severity Reaction Status Date / Time No Known Drug Allergies Allergy Verified 06/15/20 10:23 Review of Systems Constitutional Constitutional: Reports system reviewed and no additional complaints, except as documented ENT Comments: Nosebleed Respiratory Respiratory: Reports system reviewed and no additional complaints, except as documented Integumentary/Breasts Skin/Breast: Reports system reviewed and no additional complaints, except as documented Hematologic/Lymphatic On Anticoagulants: No Patient History Medical History Blister 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) Malignant neoplasm of upper lobe of right lung (02/12/17) Metastatic bone cancer (11/2012) Non-small cell lung cancer (NSCLC) Peripheral neuropathy Surgical History History of eye surgery History of spinal fusion History of toe surgery Status post hysterectomy with oophorectomy Status post knee surgery Status post rotator cuff repair Social History household members: spouse Smoking Status: Never smoker alcohol intake: current Smoking Status: Never smoker alcohol intake frequency: holidays/special occasions only Substance Use Type: does not use Exam Initial Vital Signs Initial Vital Signs: Vital Signs Pulse Rate 77 11/09/20 09:49 Respiratory Rate 16 11/09/20 09:49 Blood Pressure 122/57 L 11/09/20 09:49 Pulse Oximetry 97 11/09/20 09:49 Const General: cooperative and healthy appearing HENMT Nose: other (Clots right nares) Mouth: oral mucosae normal and moist mucous membranes Resp Effort & Inspection: normal respiratory effort Skin General: no rashes or lesions noted Neuro General: patient alert, patient awake and moves all extremities Extrem General: normal to inspection and capillary refill normal Psych Appearance: grossly normal and well kempt Course Vital Signs Vital signs: Vital Signs - 8 hr 11/09/20 09:49 Pulse Rate 77 Respiratory Rate 16 Blood Pressure 122/57 L Pulse Oximetry 97 Medical Decision Making MDM Narrative Medical decision making narrative: Patient not on anticoagulation. No trauma. Nose clamp was placed in triage and so was removed when I initially evaluated the patient. She was observed for period of time without any rebleeding. Will send her home with a clamp. No further workup needed the emergency department. She was given return precautions. She expressed understanding and agreement. Discharge Plan Departure Patient Disposition: Home Clinical Impression: Epistaxis Instructions: DI for Nosebleed Activity Restrictions/Additional Instructions: I do recommend that you avoid blowing your nose or wiping your nose for the next 24 hours. If it starts to bleed again please do the procedure that we discussed. Return to the emergency department for any new or worsening symptoms Prescriptions: No Action ondansetron HCl [Zofran] 8 MG tablet 8 mg PO PRN PRN (Reason: Nausea) Qty: 0 RF: 0 multivitamin tablet 1 tab PO DAILY RF: 0 diphenoxylate-atropine [Lomotil] 2.5-0.025 mg tablet See Rx Instructions PO .COMPLEX PRN (Reason: Diarrhea) RF: 0 tramadol 50 mg tablet 50 mg PO Q4H PRN (Reason: pain) RF: 0 magnesium 250 mg tablet 125 mg PO DAILY RF: 0 cholecalciferol (vitamin D3) 2,000 unit capsule 2,000 unit PO DAILY RF: 0 antiarthritic combination no.2 [glucosamine-chondroitin] 900 mg tablet 900 mg PO DAILY RF: 0 furosemide 20 mg tablet 10 mg PO DAILY PRN (Reason: Edema) RF: 0 acetaminophen [Tylenol] 325 mg tablet 325 mg PO DAILY PRN (Reason: Pain) RF: 0 docusate sodium [Colace] 100 mg capsule 100 mg PO BID PRN (Reason: Constipation) RF: 0 Referrals: Valentin Hernandez MD [Primary Care Provider] -
--- NOTE | 2020-11-09 10:27 | PC.NURSE ---
Removed clamp at 1025
[2020-11-09 10:30] VITALS: BP 104/57; PULSE 75; O2SAT 99
[2020-11-09 11:00] VITALS: BP 110/57; PULSE 72; O2SAT 96
== END 2020-11-09 11:38 | disposition home or self-care (01) ==
PROVIDERS: Emergency Provider Emergency Medicine; Family Provider Internal Medicine; PCP Internal Medicine
DX: R04.0 Epistaxis (principal)
CPT/HCPCS: 99281

== ENCOUNTER 2020-12-21 10:07 | Emergency (ER) | payer MEDICARE, BC, SELFPAY ==
[2020-12-21] VITALS (7 sets, daily range): BP systolic 117–142; BP diastolic 57–65; PULSE 61–75; RESP 18; TEMP 36.6; O2SAT 95–98; BMI 24.4
--- NOTE | 2020-12-21 11:11 | DI.US.S_ITS ---
PROCEDURE: US PERIP VENOUS LOW EXTREM RT INDICATIONS: Lower extremity edema, clinical concern for DEEP VEIN THROMBOSIS TECHNIQUE: Real-time imaging, as well as color and pulse Doppler interrogation, were performed of the lower extremity deep veins from the inguinal ligament to the popliteal fossa. COMPARISON: [facility], , [facility] VENOUS LOW EXTREM LT, 12/22/2019, 14:26. [facility], , [facility] VENOUS LOW EXTREM LT, 11/19/2019, 17:10. [facility] Ultrasound, US, US VENOUS LEG DPLX BILAT, 11/29/2016, 16:25. FINDINGS: The common femoral, femoral and popliteal veins are normally compressible, and free of intraluminal thrombus. Color and pulse Doppler demonstrate normal phasic intraluminal flow. There is normal augmentation response to distal compression maneuver. Soft tissue ankle edema can be seen. IMPRESSION: Negative for deep venous thrombosis. Dictated by: Eddie Lux M.D. on 12/21/2020 at 11:11 Approved by: Eddie Lux M.D. on 12/21/2020 at 11:12
--- NOTE | 2020-12-21 11:52 | ED.EXTPRO ---
HPI - Extremity Problem General Chief complaint: Extremity Problem,Nontraumatic Stated complaint: Possible blood clot Time Seen by Provider: 12/21/20 10:09 Source: patient Mode of arrival: Ambulatory History of Present Illness HPI Narrative: 70-year-old female nonsmoker with history of lung cancer and metastatic bone cancer presents with some pain and swelling in her right hip and anterior thigh. She denies any traumas, falls or abnormal motions. She denies any fever or chills nor history of clot. She states she is here for evaluation of possible DVT. She has had no fever chills. She states the pain is worse when she moves and improves with rest. She is still able to ambulate. She has an appointment tomorrow morning with her cancer care team for lab work and consultation. She is otherwise well and free of complaint but does admit that she increased her exercise regimen a few days ago to include a large hill and states that she became short of breath with this exertion but denies any change at her regular level of exertion and activity Related Data Home Medications Medication Instructions Recorded Confirmed ondansetron HCl 8 mg tablet 8 mg PO PRN PRN #0 05/15/16 06/15/20 (Zofran) antiarthritic combination no.2 900 900 mg PO DAILY tab 09/27/17 06/15/20 mg tablet (glucosamine-chondroitin) cholecalciferol (vitamin D3) 50 2,000 unit PO DAILY 09/27/17 06/15/20 mcg (2,000 unit) capsule diphenoxylate-atropine 2.5 See Rx Instructions PO .COMPLEX 09/27/17 06/15/20 mg-0.025 mg tablet (Lomotil) PRN tab magnesium 250 mg tablet 125 mg PO DAILY 09/27/17 06/15/20 multivitamin 1 tab PO DAILY 09/27/17 06/15/20 tramadol 50 mg tablet 50 mg PO Q4H PRN tab 09/27/17 06/15/20 acetaminophen 325 mg tablet 325 mg PO DAILY PRN tab 04/08/19 06/15/20 (Tylenol) furosemide 20 mg tablet 10 mg PO DAILY PRN 04/08/19 06/15/20 docusate sodium 100 mg capsule 100 mg PO BID PRN cap 07/14/19 06/15/20 (Colace) Allergies Allergy/AdvReac Type Severity Reaction Status Date / Time No Known Drug Allergies Allergy Verified 12/21/20 11:03 Review of Systems Review of Systems Narrative: GENERAL: Denies chills, fatigue, malaise, fever, sweats. HEENT: Denies sinus pain, ear pain, sore throat, difficulty swallowing, dizziness. RESPIRATORY: Denies dyspnea, cough, wheezing, hemoptysis, sputum. CARDIOVASCULAR: Denies chest pain, palpitations, orthopnea, edema, GASTROINTESTINAL: Denies nausea, vomiting, abdominal pain, diarrhea, constipation, melena. : Denies dysuria, frequency, incontinence, hematuria, urinary retention. MUSCULOSKELETAL: See HPI SKIN: Denies rash, skin lesions, or other NEUROLOGIC: Denies weakness, headache, numbness, change in speech, confusion, seizures, incoordination. PSYCHIATRIC: No concerning psychosocial issues. 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) Malignant neoplasm of upper lobe of right lung (02/12/17) Metastatic bone cancer (11/2012) Non-small cell lung cancer (NSCLC) Peripheral neuropathy Surgical History History of eye surgery History of spinal fusion History of toe surgery Status post hysterectomy with oophorectomy Status post knee surgery Status post rotator cuff repair Social History household members: spouse Smoking Status: Never smoker alcohol intake: current Smoking Status: Never smoker alcohol intake frequency: holidays/special occasions only Substance Use Type: does not use Exam Narrative Exam Narrative: GENERAL: 70 [] year old patient appears stated age. Well-developed patient, in mild distress. HEAD: Atraumatic. Normocephalic. EYES: Pupils equal round and reactive. Extraocular motions intact. No scleral icterus. No injection or drainage. ENT: Nose without bleeding, purulent drainage. Throat without erythema, tonsillar hypertrophy or exudate. Airway patent. NECK: Trachea midline. Non tender CARDIOVASCULAR: Regular rate and rhythm without murmurs, gallops, or rubs. RESPIRATORY: Decreased breath sounds throughout prolonged expiratory phase, no evidence of increased work of breathing GASTROINTESTINAL: Abdomen soft, non-tender, nondistended. EXTREMITIES: Mild tenderness to palpation in right anterior hip and thigh, no obvious erythema, warmth or swelling. BACK: Nontender without deformity or crepitance. No flank tenderness. NEURO: AOx3. SKIN: No rash or erythema of visible areas Initial Vital Signs Initial Vital Signs: Vital Signs Temperature 98 F 12/21/20 10:58 Pulse Rate 75 12/21/20 10:58 Respiratory Rate 18 12/21/20 10:58 Blood Pressure 142/65 H 12/21/20 10:58 Pulse Oximetry 98 12/21/20 10:58 Course Orders Ordered: ED Orders 12/21/20 11:11 US perip venous low extrem rt Stat Vital Signs Vital signs: Vital Signs - 8 hr 12/21/20 12:00 12/21/20 12:30 12/21/20 12:31 Pulse Rate 65 61 68 Respiratory Rate Blood Pressure 132/65 126/58 L Pulse Oximetry 98 97 95 12/21/20 12:48 Pulse Rate 67 Respiratory Rate 18 Blood Pressure 126/58 L Pulse Oximetry 96 MDM - Extremity (Nontraumatic) Imaging Data US - DVT: Radiologist's Impression: [address] [address] Ultrasound Report Signed Patient: Glenny Hope MR#: [id number] : 1950 Acct:[id number] Age/Sex: 70 / F Date of Service: 12/21/20 Loc: ED Accession Number: [id number] ?? Procedure: US periph venous low extrem rt Ordering Provider: Raymond Hewitt D.O. PROCEDURE:? US PERIPH VENOUS LOW EXTREM RT ? INDICATIONS:? Lower extremity edema, clinical concern for DEEP VEIN THROMBOSIS ? TECHNIQUE:? Real-time imaging, as well as color and pulse Doppler interrogation, were performed of the lower extremity deep veins from the inguinal ligament to the popliteal fossa.? ? COMPARISON:? [facility], PERIP VENOUS LOW EXTREM LT, 12/22/2019, 14:26.? [facility], PERIP VENOUS LOW EXTREM LT, 11/19/2019, 17:10.? [facility] Ultrasound, US, US VENOUS LEG DPLX BILAT, 11/29/2016, 16:25. ? FINDINGS:? The common femoral, femoral and popliteal veins are normally compressible, and free of intraluminal thrombus.? Color and pulse Doppler demonstrate normal phasic intraluminal flow.? There is normal augmentation response to distal compression maneuver. ? ? Soft tissue ankle edema can be seen. ? ? IMPRESSION:? ? Negative for deep venous thrombosis. ? ? Dictated by: Eddie Lux M.D. on 12/21/2020 at 11:11 ? ? Approved by: Eddie Lux M.D. on 12/21/2020 at 11:12? MDM Narrative Medical decision making narrative: Patient with right anterior hip and thigh pain in the absence of any significant physical exam findings. She denies systemic complaints such as fever, chills nor nausea or vomiting. She denies any fatigue, dizziness, weakness or lightheadedness. She has known metastatic disease in the bones of this region. Given her risk for DVT she presents for evaluation. Ultrasound is very reassuring and there is no evident evidence of clot. Physical exam would suggest against the likelihood of infection such as abscess or cellulitis. She denies any trauma or falls and states that she is not having any significant pain more than normal, she was just concerned about the swelling. We discussed the need for lab work and imaging and she would prefer to hold off other than what we have done given the fact that she has an appointment tomorrow morning at the [facility]. We did attempt to call her primary nurse down there but were unable to reach them after leaving voicemail. Patient is given extensive return precautions and questions have been answered to her apparent satisfaction Discharge Plan Departure Patient Disposition: Home Clinical Impression: Chronic pain of right groin Instructions: DI for Leg Pain Activity Restrictions/Additional Instructions: *You have been diagnosed with [right groin pain, no evidence of DVT. *What to do: *Please continue to take your regular medications as directed. [ ] New medication prescriptions sent to your pharmacy: [ ] [ ] New medication written as a paper prescription [x ] No new medications given *Please follow up with your oncologist tomorrow as play. Let them know you were seen in the Emergency Department and that we ask that you be seen in follow up. We will electronically transmit a record of today's note if your PCP is in our system *If you do not have a primary care provider please contact the [facility] Resource line at [phone]. They will ask some questions about your medical history and help get you set up with a doctor in the community. *Return to Emergency Department if you should have any new, worsening or concerning symptoms, such as [fever greater than 101 F, shaking chills, worsening pain, persistent vomiting or other bothersome symptoms] Prescriptions: No Action ondansetron HCl [Zofran] 8 MG tablet 8 mg PO PRN PRN (Reason: Nausea) Qty: 0 RF: 0 multivitamin tablet 1 tab PO DAILY RF: 0 diphenoxylate-atropine [Lomotil] 2.5-0.025 mg tablet See Rx Instructions PO .COMPLEX PRN (Reason: Diarrhea) RF: 0 tramadol 50 mg tablet 50 mg PO Q4H PRN (Reason: pain) RF: 0 magnesium 250 mg tablet 125 mg PO DAILY RF: 0 cholecalciferol (vitamin D3) 2,000 unit capsule 2,000 unit PO DAILY RF: 0 antiarthritic combination no.2 [glucosamine-chondroitin] 900 mg tablet 900 mg PO DAILY RF: 0 furosemide 20 mg tablet 10 mg PO DAILY PRN (Reason: Edema) RF: 0 acetaminophen [Tylenol] 325 mg tablet 325 mg PO DAILY PRN (Reason: Pain) RF: 0 docusate sodium [Colace] 100 mg capsule 100 mg PO BID PRN (Reason: Constipation) RF: 0 Referrals: Valentin Hernandez MD [Primary Care Provider] -
== END 2020-12-21 12:49 | disposition home or self-care (01) ==
PROVIDERS: Emergency Provider Emergency Medicine; Family Provider Internal Medicine; PCP Internal Medicine
DX: R10.31 Right lower quadrant pain (principal)
CPT/HCPCS: 93971; 99281; 99283

== ENCOUNTER 2021-02-05 10:52 | Emergency (ER) | payer MEDICARE, BC, SELFPAY ==
[2021-02-05 11:00] VITALS: BP 115/55; PULSE 74; RESP 20; TEMP 36.9; O2SAT 99; BMI 23.2
--- NOTE | 2021-02-05 11:15 | DI.US.S_ITS ---
PROCEDURE: US [facility] VENOUS LOW EXTREM RT INDICATIONS: LEG SWELLING TECHNIQUE: Real-time imaging, as well as color and pulse Doppler interrogation, were performed of the lower extremity deep veins from the inguinal ligament to the popliteal fossa. COMPARISON: [facility], [facility] VENOUS LOW EXTREM RT, 12/21/2020, 11:50. FINDINGS: The common femoral, femoral and popliteal veins are normally compressible, and free of intraluminal thrombus. Color and pulse Doppler demonstrate normal phasic intraluminal flow. There is normal augmentation response to distal compression maneuver. IMPRESSION: No sonographic evidence of deep venous thrombosis in the right lower extremity. Dictated by: Braeden Sanchez M.D. on 02/05/2021 at 14:27 Approved by: Braeden Sanchez M.D. on 02/05/2021 at 14:29
--- NOTE | 2021-02-05 13:57 | ED.EXTPRO ---
HPI - Extremity Problem General Chief complaint: Extremity Problem,Nontraumatic Stated complaint: POSS BLOOD CLOT IN RT LEG Time Seen by Provider: 02/05/21 11:40 Source: patient Mode of arrival: Ambulatory Limitations: no limitations History of Present Illness HPI Narrative: The patient was diagnosed metastatic lung cancer a years ago. She has been through multiple experimental courses of treatment. She is currently taking an experimental medication, Alectinib. She feels well with the medication. A noted side-effect is peripheral edema. She is on diuretics. This is help. Her care team is developed concerned about a DVT. She does have asymmetric edema, greater on the left than the right. She is not having significant leg pain. She denies chest pain, dyspnea, or hemoptysis. She has no history of DVT or PE. She has no redness or swelling the legs. She has peripheral neuropathy, she has no weakness in her legs. She is ambulatory without difficulty. She is not anticoagulated. She denies recent illness, she has had no fever or chills. Related Data Home Medications Medication Instructions Recorded Confirmed ondansetron HCl 8 mg tablet 8 mg PO PRN PRN #0 05/15/16 06/15/20 (Zofran) antiarthritic combination no.2 900 900 mg PO DAILY tab 09/27/17 06/15/20 mg tablet (glucosamine-chondroitin) cholecalciferol (vitamin D3) 50 2,000 unit PO DAILY 09/27/17 06/15/20 mcg (2,000 unit) capsule diphenoxylate-atropine 2.5 See Rx Instructions PO .COMPLEX 09/27/17 06/15/20 mg-0.025 mg tablet (Lomotil) PRN tab magnesium 250 mg tablet 125 mg PO DAILY 09/27/17 06/15/20 multivitamin 1 tab PO DAILY 09/27/17 06/15/20 tramadol 50 mg tablet 50 mg PO Q4H PRN tab 09/27/17 06/15/20 acetaminophen 325 mg tablet 325 mg PO DAILY PRN tab 04/08/19 06/15/20 (Tylenol) furosemide 20 mg tablet 10 mg PO DAILY PRN 04/08/19 06/15/20 docusate sodium 100 mg capsule 100 mg PO BID PRN cap 07/14/19 06/15/20 (Colace) Allergies Allergy/AdvReac Type Severity Reaction Status Date / Time No Known Drug Allergies Allergy Verified 02/05/21 11:00 Review of Systems Review of Systems ROS Unobtainable: All systems reviewed & are unremarkable except as noted in HPI and below Patient History Medical History (Updated 02/05/21 @ 14:11 by John Herrera MD) Blister 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) Malignant neoplasm of upper lobe of right lung (02/12/17) Metastatic bone cancer (11/2012) Non-small cell lung cancer (NSCLC) Peripheral edema Peripheral neuropathy Surgical History History of eye surgery History of spinal fusion History of toe surgery Status post hysterectomy with oophorectomy Status post knee surgery Status post rotator cuff repair Social History household members: spouse Smoking Status: Never smoker alcohol intake: current Smoking Status: Never smoker alcohol intake frequency: holidays/special occasions only Substance Use Type: does not use Exam Initial Vital Signs Initial Vital Signs: Vital Signs Temperature 98.5 F 02/05/21 11:00 Pulse Rate 74 02/05/21 11:00 Respiratory Rate 20 02/05/21 11:00 Blood Pressure 115/55 L 02/05/21 11:00 Pulse Oximetry 99 02/05/21 11:00 Const General: cooperative, healthy appearing, comfortable and well developed HENKY Head: normal to inspection, normocephalic and atraumatic Resp Auscultation: clear to auscultation bilaterally Cardio Rate: regular rate Rhythm: regular rhythm Heart Sounds: S1 normal, S2 normal and no murmurs GI Inspection: normal to inspection Palpation: soft and No tender Skin General: no rashes or lesions noted Neuro General: patient alert, patient awake, patient oriented x3 and no focal motor deficits Extrem General: normal to inspection, no calf tenderness (The negative Homans sign.) and edema (2+ left lower extremity edema, 3+ right lower extremity edema. 2+ DP pulse) Psych Mental Status: mental status grossly normal Course Orders Ordered: ED Orders 02/05/21 11:15 US periph venous low extrem rt Stat Vital Signs Vital signs: Vital Signs - 8 hr 02/05/21 11:00 Temperature 98.5 F Pulse Rate 74 Respiratory Rate 20 Blood Pressure 115/55 L Pulse Oximetry 99 MDM - Extremity (Nontraumatic) Imaging Data US - DVT: Radiologist's Impression: Right leg ultrasound shows no evidence of DVT. Discharge Plan Departure Patient Disposition: Home Clinical Impression: Edema, peripheral Instructions: Edema Activity Restrictions/Additional Instructions: The ultrasound shows no evidence of DVT. Continue your diuretics. Follow-up with your healthcare team as scheduled. Return here as necessary. Prescriptions: No Action ondansetron HCl [Zofran] 8 MG tablet 8 mg PO PRN PRN (Reason: Nausea) Qty: 0 0RF multivitamin tablet 1 tab PO DAILY 0RF diphenoxylate-atropine [Lomotil] 2.5-0.025 mg tablet See Rx Instructions PO .COMPLEX PRN (Reason: Diarrhea) 0RF Label Comments: 1-2 tabs PO four times a day PRN for loose stool. Do not exceed 8 tabs per day; Rx Instructions: 1-2 tabs PO four times a day PRN for loose stool. Do not exceed 8 tabs per day; tramadol 50 mg tablet 50 mg PO Q4H PRN (Reason: pain) 0RF Label Comments: 1/2 - 1 pill magnesium 250 mg tablet 125 mg PO DAILY 0RF cholecalciferol (vitamin D3) 2,000 unit capsule 2,000 unit PO DAILY 0RF antiarthritic combination no.2 [glucosamine-chondroitin] 900 mg tablet 900 mg PO DAILY 0RF furosemide 20 mg tablet 10 mg PO DAILY PRN (Reason: Edema) 0RF acetaminophen [Tylenol] 325 mg tablet 325 mg PO DAILY PRN (Reason: Pain) 0RF docusate sodium [Colace] 100 mg capsule 100 mg PO BID PRN (Reason: Constipation) 0RF Referrals: Valentin Hernandez MD [Primary Care Provider] -
[2021-02-05 14:12] VITALS: BP 132/62; PULSE 69; O2SAT 98
== END 2021-02-05 14:15 | disposition home or self-care (01) ==
PROVIDERS: Emergency Provider Emergency Medicine; Family Provider Internal Medicine; PCP Internal Medicine
DX: R60.0 Localized edema (principal)
CPT/HCPCS: 93971; 99282; 99283

== ENCOUNTER → 2021-04-01 19:41 | Outpatient (CLI) | payer MEDICARE, BC, SELFPAY ==
--- NOTE | 2021-04-01 | DI.MRI.S_ITS ---
PROCEDURE: MR LUMBAR SPINE W CON INDICATIONS: RIGHT LEG WEAKNESS TECHNIQUE: Noncontrast sagittal T1 spin echo and T2 fast spin echo, sagittal STIR, axial T1 and T2 fast spin echo through the lumbar spine. In cases with scoliosis, additional coronal T2 fast spin echo may be performed. After the administration of contrast, sagittal and axial T1 spin echo with fat saturation through the lumbar spine. COMPARISON: Outside Film, NM, PET NECK TO MID THIGH, 10/21/2020, 11:55. [facility], , MR LUMBAR SPINE WO/W CON, 07/06/2020, 9:42. FINDINGS: Image quality: Excellent. Alignment and curvature: There is normal bony alignment. Marrow: Progression of a metastatic lesion involving the L1 vertebral body, now involving the entirety of the vertebral body and extending farther into the right pedicle. Metastatic disease involving S2 and S3 is slightly progressed, with more involvement of the S2 vertebra. There is a small associated epidural mass in the canal behind S3, not significantly changed. Low signal lesions involving L4 and the anterior medial left sacrum may potentially represent sclerotic bony metastatic disease. Signal abnormality in the right and left lateral sacrum and in the midline involving S1 likely represent sacral insufficiency fractures. There is signal abnormality in the medial right iliac wing, as well, which may also potentially represent a medial iliac insufficiency fracture. Spinal cord: Conus medullaris terminates at the L2 level. Visualized spinal cord demonstrates normal signal, without suspicious enhancement. Paraspinous soft tissues: No paravertebral masses or abnormal enhancement. T12-L1: No canal stenosis or foraminal stenosis. L1-L2: Mild disc bulge. Bilateral facet hypertrophy with prominent ligamentous hypertrophy. Mild canal stenosis. [id number] bilateral foraminal stenosis. L2-L3: Disc bulge. Trace retrolisthesis of L2 on L3. Facet hypertrophy. Mild canal stenosis. No significant foraminal stenosis. L3-L4: Disc bulge. Facet hypertrophy. Moderate canal stenosis. [id number] right foraminal stenosis and mild left foraminal stenosis. L4-L5: Disc bulge. Facet hypertrophy. Moderate canal stenosis. Moderate right and moderate to severe left foraminal narrowing. L5-S1: Disc bulge. Facet hypertrophy. Mild canal stenosis. Moderate to severe bilateral foraminal stenosis with bilateral foraminal L5 nerve root impingement. IMPRESSION: 1. Mild progression of bony metastatic disease. There is slight progression of an L1 lesion as well as progression of S2/S3 metastatic disease. Mild epidural extension into the canal at S3 is not significantly changed. 2. Signal abnormalities in S1, the lateral sacrum bilaterally, and the medial right iliac bone may all potentially represent insufficiency fractures. 3. Multilevel degenerative change as described above, with multilevel canal stenosis. There is also moderate to severe bilateral foraminal stenosis at L5-S1 with bilateral L5 foraminal nerve root impingement. Dictated by: Francis Chamberlain M.D. on 04/04/2021 at 8:29 Approved by: Francis Chamberlain M.D. on 04/04/2021 at 8:51
== END ==
PROVIDERS: Family Provider Internal Medicine; PCP Internal Medicine; Referring Provider Nurse Practitioner; Visit Provider Nurse Practitioner
DX: R29.898 Other symptoms and signs involving the musculoskeletal system (principal); C80.1 Malignant (primary) neoplasm, unspecified; C79.51 Secondary malignant neoplasm of bone; M48.061 Spinal stenosis, lumbar region without neurogenic claudication; M48.07 Spinal stenosis, lumbosacral region
CPT/HCPCS: 72149; A9579

== ENCOUNTER → 2021-04-03 09:44 | Outpatient (CLI) | payer MEDICARE, BC, SELFPAY ==
--- NOTE | 2021-04-03 | DI.MRI.S_ITS ---
PROCEDURE: MR HIP RT WO/W CON INDICATIONS: RIGHT LEG WEAKNESS TECHNIQUE: Noncontrast coronal T1 spin echo and STIR through the bony pelvis. Coronal and axial T2 fast spin echo with fat saturation, axial T1 spin echo with fat saturation, sagittal T1 spin echo, and oblique axial T2 fast spin echo with fat saturation through the hip. Post-contrast axial, coronal, and sagittal spin echo with fat saturation through the hip. COMPARISON: [facility], , MR PELVIS WO/W CON, 07/06/2020, 10:03. FINDINGS: Image quality: Excellent. Bones and joints: Redemonstrated T2 hypointense signal throughout the osseous structures with mottled contrast enhancement, compatible with neoplastic disease. Mildly displaced, pathologic fractures of the anterior acetabulum and ischium. Small joint effusion with evidence of synovitis. Tendons and ligaments: The gluteus medius and minimus tendons appear intact patchy T2 hyperintense/T1 hypointense signal is seen within the gluteus medius and minimus , which may reflect reactive edema. The nearby proximal iliotibial band also appears intact. The iliopsoas tendon appears intact. The origin of the hamstring tendon is intact at the ischial tuberosity but demonstrates evidence of tendon. The ligamentum teres appears intact where visualized. Labrum and cartilage: Signal within the superior labrum, compatible with degenerative change. Thinning in contour irregularity of the hyaline cartilage, compatible with degenerative change. Soft tissues: No suspicious soft tissue enhancement. T2 hyperintense signal within quadratus femoris muscle, suggesting ischiofemoral impingement. Edema about the proximal sciatic neurovascular bundle adjacent to the hamstring tendons. No free pelvic fluid. Bladder wall is under distended. Genitourinary structures and bowel loops appear normal where visualized. Reticulated T2 hyperintense signal within the soft tissues, compatible with edema/anasarca. IMPRESSION: 1. Edema within the quadratus femoris muscle, which may reflect ischial femoral impingement. 2. Extensive metastatic disease as detailed above with pathologic fractures of the anterior acetabulum and ischium. 3. Small joint effusion with evidence of synovitis. 4. Intramuscular edema involving the gluteus medius and minimus muscles. 5. Mild tendinopathy of the hamstring origin. Dictated by: Eric Dailey M.D. on 04/04/2021 at 10:38 Approved by: Eric Dailey M.D. on 04/04/2021 at 10:48
== END ==
PROVIDERS: Family Provider Internal Medicine; PCP Internal Medicine; Referring Provider Nurse Practitioner; Visit Provider Nurse Practitioner
DX: R29.898 Other symptoms and signs involving the musculoskeletal system (principal); M84.559A Pathological fracture in neoplastic disease, hip, unspecified, initial encounter for fracture; D49.9 Neoplasm of unspecified behavior of unspecified site; M25.452 Effusion, left hip; M25.451 Effusion, right hip; R60.0 Localized edema
CPT/HCPCS: 73723; A9579

== ENCOUNTER → 2021-06-07 12:44 | Outpatient (CLI) | payer MEDICARE, BC, SELFPAY ==
[2021-06-07 14:38] LABS: Alanine Aminotransferase 23 IU/L (<35); Albumin 3.9 g/dL (3.5-5.0); Albumin Globulin Ratio 1.6 (1.0-2.8); Alkaline Phosphatase 108 U/L (38-126); Aspartate Aminotransferase 26 IU/L (14-36); BUN Creatinine Ratio 26.6 (6-22); Bilirubin Total 0.6 mg/dL (0.2-1.3); Blood Urea Nitrogen 29 mg/dL (7-17); Calcium 9.2 mg/dL (8.4-10.2); Carbon Dioxide 32 mmol/L (22-32); Chloride 98 mmol/L (98-107); Estimated Glomerular Filt Rate 49.2 mL/min (>60); Globulin 2.4 g/dL (1.7-4.1); Glucose 100 mg/dL (80-110); HEMOLYSIS < 15 (0-50); Potassium 4.4 mmol/L (3.4-5.1); Sodium 137 mmol/L (137-145); Total Protein 6.3 g/dL (6.3-8.2)
== END ==
PROVIDERS: Family Provider Internal Medicine; PCP Internal Medicine; Referring Provider Internal Medicine Hematology & Oncology; Visit Provider Internal Medicine Hematology & Oncology
DX: C34.90 Malignant neoplasm of unspecified part of unspecified bronchus or lung (principal); C79.51 Secondary malignant neoplasm of bone
CPT/HCPCS: 36415; 80053

== ENCOUNTER → 2021-07-13 10:14 | Outpatient (CLI) | payer MEDICARE, BC, SELFPAY ==
[2021-07-13 10:59] LABS: Add Manual Diff / Slide Review NO; Basophils Absolute Auto 0 /uL (0-100); Basophils Percent Auto 0.2 % (0-2); Eosinophils Absolute Auto 0 /uL (0-450); Eosinophils Percent Auto 0.4 % (2-4); Hematocrit 29.2 % (36-46); Hemoglobin 9.8 g/dL (12.0-16.0); Lymphocytes Absolute Auto 500 /uL (1100-4500); Mean Corpuscular HGB Conc 33.4 % (30-36); Mean Corpuscular Hemoglobin 26.3 PG (26-34); Mean Corpuscular Volume 78.8 fL (80-100); Monocytes Absolute Auto 400 /uL (0-900); Monocytes Percent Auto 4.2 % (3-14); Neutrophils Absolute Auto 8400 /uL (1500-7000); Neutrophils Percent Auto 90.2 % (50-75); Platelet Count 290 X10^3/uL (150-400); Red Blood Cell Count 3.71 X10^6/uL (4.0-5.2); Red Cell Distribution Width 21.7 % (11.6-14.8); White Blood Cell Count 9.3 X10^3/uL (4.5-11.0)
[2021-07-13 11:16] LABS: Anisocytosis 2+; Microcytosis 1+
[2021-07-13 11:17] LABS: Poikilocytosis 2+
[2021-07-13 11:19] LABS: Alanine Aminotransferase 31 IU/L (<35); Albumin 3.9 g/dL (3.5-5.0); Albumin Globulin Ratio 1.3 (1.0-2.8); Alkaline Phosphatase 114 U/L (38-126); Aspartate Aminotransferase 36 IU/L (14-36); BUN Creatinine Ratio 19.6 (6-22); Bilirubin Total 0.5 mg/dL (0.2-1.3); Blood Urea Nitrogen 22 mg/dL (7-17); Calcium 8.9 mg/dL (8.4-10.2); Carbon Dioxide 38 mmol/L (22-32); Chloride 99 mmol/L (98-107); Estimated Glomerular Filt Rate 52 mL/min (>60); Globulin 2.9 g/dL (1.7-4.1); Glucose 104 mg/dL (80-110); HEMOLYSIS < 15 (0-50); Potassium 3.6 mmol/L (3.4-5.1); Sodium 139 mmol/L (137-145); Total Protein 6.8 g/dL (6.3-8.2)
== END ==
PROVIDERS: Family Provider Internal Medicine; PCP Internal Medicine; Referring Provider Internal Medicine Hematology & Oncology; Visit Provider Internal Medicine Hematology & Oncology
DX: C79.51 Secondary malignant neoplasm of bone (principal); C34.90 Malignant neoplasm of unspecified part of unspecified bronchus or lung
CPT/HCPCS: 36415; 80053; 85025

== ENCOUNTER 2021-09-15 07:55 | Emergency (ER) | payer MEDICARE, BC, SELFPAY ==
[2021-09-15] VITALS (11 sets, daily range): BP systolic 128–144; BP diastolic 58–74; PULSE 91–124; RESP 15–25; TEMP 36.1; O2SAT 94–100; BMI 23.3
--- NOTE | 2021-09-15 08:26 | ED_ITS ---
HPI - Abdominal Pain General Chief Complaint: Abdominal Pain Stated Complaint: No urination 12 hrs, pain Time Seen by Provider: 09/15/21 08:26 Source: patient Mode of arrival: Wheelchair History of Present Illness HPI narrative: Patient is a 71-year-old who has metastatic lung cancer, metastasis to the bones anemia presenting today with inability to urinate and severe abdominal pain. She says she urinated yesterday it has been about 12 hours. She had a bowel movement yesterday but now feels like she has to have bowel movements and she can not. Denies any fever or chills. She takes morphine at home to control pain Related Data Home Medications Medication Instructions Recorded Confirmed ondansetron HCl 8 mg tablet 8 mg PO PRN PRN Nausea ##0 05/15/16 06/15/20 (Zofran) antiarthritic combination no.2 900 900 mg PO DAILY 09/27/17 06/15/20 mg tablet (glucosamine-chondroitin) cholecalciferol (vitamin D3) 50 2,000 unit PO DAILY 09/27/17 06/15/20 mcg (2,000 unit) capsule diphenoxylate-atropine 2.5 See Rx Instructions PO .COMPLEX 09/27/17 06/15/20 mg-0.025 mg tablet (Lomotil) PRN Diarrhea magnesium 250 mg tablet 125 mg PO DAILY 09/27/17 06/15/20 multivitamin 1 tab PO DAILY 09/27/17 06/15/20 tramadol 50 mg tablet 50 mg PO Q4H PRN pain 09/27/17 06/15/20 acetaminophen 325 mg tablet 325 mg PO DAILY PRN Pain 04/08/19 06/15/20 (Tylenol) furosemide 20 mg tablet 10 mg PO DAILY PRN Edema 04/08/19 06/15/20 docusate sodium 100 mg capsule 100 mg PO BID PRN Constipation 07/14/19 06/15/20 (Colace) Allergies Allergy/AdvReac Type Severity Reaction Status Date / Time No Known Drug Allergies Allergy Verified 09/15/21 08:17 Review of Systems Review of Systems Narrative: GENERAL: Denies chills, fatigue, malaise, fever, sweats, travel HEENT: Denies sinus pain, ear pain, sore throat, difficulty swallowing, neck pain RESPIRATORY: Denies dyspnea, cough, wheezing, hemoptysis, sputum. CARDIOVASCULAR: Denies chest pain, palpitations, orthopnea, edema GASTROINTESTINAL: See HPI : See HPI MUSCULOSKELETAL: Denies weakness, joint pain, or bony pain SKIN: No rash, no erythema, no pruritus NEUROLOGIC: Denies weakness, dizziness, headache, numbness, change in speech, confusion PSYCHIATRIC: No concerning psychosocial issues. 12 point review of systems is negative except for those stated above and HPI Patient History Medical History Blister 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) Malignant neoplasm of upper lobe of right lung (02/12/17) Metastatic bone cancer (11/2012) Non-small cell lung cancer (NSCLC) Peripheral edema Peripheral neuropathy Surgical History History of eye surgery History of spinal fusion History of toe surgery Status post hysterectomy with oophorectomy Status post knee surgery Status post rotator cuff repair Social History household members: spouse Smoking Status: Never smoker alcohol intake: current Smoking Status: Never smoker alcohol intake frequency: holidays/special occasions only Substance Use Type: does not use Exam Initial Vital Signs Initial Vital Signs: Vital Signs Temperature 97.0 F L 09/15/21 08:17 Pulse Rate 124 H 09/15/21 08:17 Respiratory Rate 18 09/15/21 08:17 Blood Pressure 133/69 09/15/21 08:17 Pulse Oximetry 98 09/15/21 08:17 Oxygen Delivery Method 09/15/21 08:17 Oxygen Flow Rate 2 09/15/21 08:17 GENERAL: 71-year-old female appears very uncomfortable HEENT: Head atraumatic,EOMI, pupils reactive, face symmetric, [moist] mucous membranes CARDIOVASCULAR: Regular rate and rhythm without murmurs, rubs or gallops. RESPIRATORY: Breath sounds equal bilaterally, no wheezes rales or rhonchi. ABDOMEN: Soft, nontender. Normoactive bowel sounds all 4 quadrants. No guarding or rebound. : A Acosta catheter placed urine return significant improvement in symptoms EXTREMITIES: Normal range of motion, no clubbing or edema. Neurovascularly intact NEUROLOGICAL: Alert and oriented x4.Normal gait and speech. SKIN: Warm, dry, no laceration, no petechiae, no rashes or lesions. Course Orders Ordered: Discontinued Medications Heparin Sodium (Porcine) (Heparin 500 Unit/5 Ml Port Flush) 500 unit IV PRN PRN PRN Reason: Flush Last Admin: 09/15/21 12:24 Dose: 500 unit Documented By: VALERY Hydromorphone HCl (Hydromorphone 1 Mg Inj) 1 mg IV NOW ONE Stop: 09/15/21 08:38 Last Admin: 09/15/21 08:57 Dose: 1 mg Documented By: VALERY(2) Hydromorphone HCl (Hydromorphone 1 Mg Inj) 1 mg IV NOW ONE Stop: 09/15/21 10:28 Last Admin: 09/15/21 10:30 Dose: 1 mg Documented By: VALERY(2) Hydromorphone HCl (Hydromorphone 1 Mg Inj) 1 mg IV NOW ONE Stop: 09/15/21 12:19 Last Admin: 09/15/21 12:24 Dose: 1 mg Documented By: VALERY Vital Signs Vital signs: Vital Signs - 8 hr 09/15/21 11:00 09/15/21 11:00 09/15/21 11:30 Pulse Rate 93 H Respiratory Rate 20 Blood Pressure 134/62 128/58 L Pulse Oximetry 97 Oxygen Delivery Method Room Air Oxygen Flow Rate 09/15/21 11:30 09/15/21 12:00 Pulse Rate 91 H 97 H Respiratory Rate 19 22 Blood Pressure Pulse Oximetry 97 Oxygen Delivery Method Nasal Cannula Oxygen Flow Rate 2 MDM - Abdominal Pain Lab Data Result diagrams: 09/15/21 08:48 09/15/21 08:48 Labs: Lab Results 09/15/21 09/15/21 09/15/21 Range/Units 08:40 08:48 08:48 WBC 12.0 H (4.5-11.0) X10^3/uL RBC 4.04 (4.0-5.2) X10^6/uL Hgb 10.3 L (12.0-16.0) g/dL Hct 30.9 L (36-46) % MCV 76.4 L (80-100) fL MCH 25.4 L (26-34) PG MCHC 33.2 (30-36) % RDW 24.4 H (11.6-14.8) % Plt Count 206 (150-400) X10^3/uL Neut % (Auto) 89.0 H (50-75) % Lymph % (Auto) 4.5 L (25-40) % [place] % (Auto) 5.8 (3-14) % Eos % (Auto) 0.1 L (2-4) % Baso % (Auto) 0.6 (0-2) % Neut # (Auto) 35507 H (5065-8314) /uL Lymph # (Auto) 500 L (9148-7372) /uL [place] # (Auto) 700 (0-900) /uL Eos # (Auto) 0 (0-450) /uL Baso # (Auto) 100 (0-100) /uL RBC Morphology Not Reportable Hypochromasia 1+ H Anisocytosis 2+ H Sodium 134 L (137-145) mmol/L Potassium 3.7 (3.4-5.1) mmol/L Chloride 96 L (98-107) mmol/L Carbon Dioxide 31 (22-32) mmol/L BUN 24 H (7-17) mg/dL Creatinine 0.92 (0.52-1.04) mg/dL Estimated GFR > 60 (>60) mL/min BUN/Creatinine Ratio 26.1 H (6-22) Glucose 111 H (80-110) mg/dL Calcium 8.4 (8.4-10.2) mg/dL Total Bilirubin 0.6 (0.2-1.3) mg/dL AST 23 (14-36) IU/L ALT 20 (<35) IU/L Alkaline Phosphatase 73 (38-126) U/L Total Protein 6.6 (6.3-8.2) g/dL Albumin 3.7 (3.5-5.0) g/dL Globulin 2.9 (1.7-4.1) g/dL Albumin/Globulin Ratio 1.3 (1.0-2.8) Urine Color Yellow Urine Appearance Clear Urine pH 7.0 (4.5-8.0) Ur Specific [place] <=1.005 (1.000-1.035) Urine Protein Negative (Negative) Urine Glucose (UA) Negative (Negative) g/dL Urine Ketones Negative (NEGATIVE) Urine Occult Blood Trace-lysed (Negative) Urine Nitrate Negative (Negative) Urine Bilirubin Negative (NEGATIVE) Urine Urobilinogen 0.2 (0.2) E.U./dL Ur Leukocyte Esterase Negative (NEGATIVE) Urine RBC 0-1/hpf (0-5/HPF) Urine WBC 0-1/hpf (0-5/HPF) Urine Bacteria Occasional (0-1) (None) Ur Culture Indicated? Cult not indicated Imaging Data CT scan - abdomen/pelvis: Radiologist's Impression: [address] [address] [address] Scan Report Signed Patient: Glenny Hope MR#: [id number] : 1950 Acct:[id number] Age/Sex: 71 / F Date of Service: 09/15/21 Loc: ED Accession Number: [id number] ?? Procedure: CT abdomen pelvis w con Ordering Provider: Ramona Pro D.O. PROCEDURE:? CT ABDOMEN PELVIS W CON ? INDICATIONS:? Metastatic lung cancer, with urinary retention and rectal pa ? TECHNIQUE:? After the administration of intravenous contrast, axial sections acquired from the lung bases to the pubic symphysis.? Coronal and sagittal reformats were performed.? For radiation dose reduction, the following was used:? automated exposure control, adjustment of mA and/or kV according to patient size.? ? COMPARISON:? [facility], MR, MR HIP RT WO/W CON, 04/03/2021, 10:04.? [facility], CT, ABDOMEN/PELVIS WITH CONTRAST, 06/27/2014, 2:45. ? FINDINGS: Image quality:? Excellent.? ? Lung bases:? Ground-glass opacity in the right middle lobe is visualized, similar to a prior remote CT in 2015. No new airspace opacities.? Heart size is normal. ? Solid organs:? Liver: The liver has no mass or intrahepatic biliary ductal dilatation. The portal vein and hepatic veins are patent.? Subcentimeter hypodensities in the liver are likely cysts and are unchanged or smaller compared to the prior CT in 2015. Biliary: The gallbladder has no gallstones, pericholecystic fluid, gallbladder wall thickening, or surrounding inflammatory change. Pancreas: The pancreas has no mass or ductal dilatation. There is no surrounding inflammation. Spleen: Normal size. There are no masses. Adrenals: No hypertrophy or nodules. Kidneys: No obstructive calculus or hydronephrosis.? No solid mass. No cystic mass. ? Peritoneum and bowel:? The distal esophagus and stomach are normal.? The small bowel has a normal caliber and appearance. The terminal ileum is normal.? The large bowel demonstrates increased stool throughout consistent with constipation.? There is questionable circumferential thickening of the rectum.? Presacral fat demonstrates increased attenuation which is worse on the right side and is likely related to soft tissue neoplastic involvement from the sclerotic metastatic lesions in the right ischium, however could be secondary to edema from the fracture.? No rectal mass. ? Nodes and vessels:? No retroperitoneal or mesenteric adenopathy by size criteria.? The aorta has atherosclerosis with no aneurysmal dilatation.? The IVC is normal. ? Miscellaneous:? No abdominal wall mass or hernia. ? PELVIS:? Genitourinary:? The bladder has no wall thickening or mass.? The bladder is decompressed with a Acosta. ? Bones:? The T9 vertebral body demonstrates sclerosis which is increased compared to the prior CT.? There is a 1 centimeter sclerotic focus within the left L4 vertebral body which is unchanged.? Sclerosis in the right iliac wing, right ischium, left ischium, and left iliac wing are again seen with increased sclerosis in the right inferior ramus and a right superior and right inferior ramus fracture.? The inferior ramus fracture is displaced.? These fractures appear similar compared to prior MRI on 04/03/2021 There is surrounding increased soft tissue density, suspicious for neoplastic involvement.? No vertebral body compression fractures.? ? IMPRESSION:? 1. Subacute right superior and inferior ramus fractures. 2. Questionable thickening of the rectum could be due to proctitis with increased attenuation of the presacral fat consistent with edema versus neoplasm.? 3. Increased soft tissue density surrounding the right ischium and posterior lateral pelvis, likely neoplastic. 4. Mildly progressive osseous metastatic disease as described above.? ? ? Dictated by: Michele De La Cruz M.D. on 09/15/2021 at 10:29 ? ? [facility] Narrative Medical decision making narrative: Patient actually had PE DVT workup 2 weeks ago. She is not currently on chemo therapy or immunotherapy at this time. She is followed by [facility]. She was anemic with hemoglobin of 8 hematocrit 24 received a blood transfusion, they are wanting blood work. Blood work today does not show any anemia. Proctitis is noted on CT she has mild leukocytosis but is afebrile. At this time inflammation is due to neoplasm rather than acute infection Discharge Plan Departure Patient Disposition: Home Clinical Impression: Acute urinary retention Instructions: How to Care for Your Acosta Catheter -- Female Activity Restrictions/Additional Instructions: *You have been diagnosed with urinary retention *What to do: At this time you do have bones in her pelvis that are broken from cancer. It appears stable. Keep Acosta catheter in for 1-2 weeks. Either [facility] or primary care can remove catheter. *Continue to take medications as directed *Follow up with your primary care provider in 2-3 days or call [phone] *Return to ER if you should have increased confusion, increased pain, inability to urinate catheter not working [or] any new, worsening or concerning symptoms Prescriptions: No Action ondansetron HCl [Zofran] 8 MG tablet 8 mg PO PRN PRN (Reason: Nausea) Qty: 0 multivitamin tablet 1 tab PO DAILY diphenoxylate-atropine [Lomotil] 2.5-0.025 mg tablet See Rx Instructions PO .COMPLEX PRN (Reason: Diarrhea) Label Comments: 1-2 tabs PO four times a day PRN for loose stool. Do not exceed 8 tabs per day; Rx Instructions: 1-2 tabs PO four times a day PRN for loose stool. Do not exceed 8 tabs per day; tramadol 50 mg tablet 50 mg PO Q4H PRN (Reason: pain) Label Comments: 1/2 - 1 pill magnesium 250 mg tablet 125 mg PO DAILY cholecalciferol (vitamin D3) 2,000 unit capsule 2,000 unit PO DAILY antiarthritic combination no.2 [glucosamine-chondroitin] 900 mg tablet 900 mg PO DAILY furosemide 20 mg tablet 10 mg PO DAILY PRN (Reason: Edema) acetaminophen [Tylenol] 325 mg tablet 325 mg PO DAILY PRN (Reason: Pain) docusate sodium [Colace] 100 mg capsule 100 mg PO BID PRN (Reason: Constipation) Referrals: Valentin Hernandez MD [Primary Care Provider] - Visit Report Forms: Patient Portal/API
--- NOTE | 2021-09-15 08:36 | DI.CT.S_ITS ---
PROCEDURE: CT ABDOMEN PELVIS W CON INDICATIONS: Metastatic lung cancer, with urinary retention and rectal pa TECHNIQUE: After the administration of intravenous contrast, axial sections acquired from the lung bases to the pubic symphysis. Coronal and sagittal reformats were performed. For radiation dose reduction, the following was used: automated exposure control, adjustment of mA and/or kV according to patient size. COMPARISON: [facility], MR, MR HIP RT WO/W CON, 04/03/2021, 10:04. [facility], CT, ABDOMEN/PELVIS WITH CONTRAST, 06/27/2014, 2:45. FINDINGS: Image quality: Excellent. Lung bases: Ground-glass opacity in the right middle lobe is visualized, similar to a prior remote CT in 2015. No new airspace opacities. Heart size is normal. Solid organs: Liver: The liver has no mass or intrahepatic biliary ductal dilatation. The portal vein and hepatic veins are patent. Subcentimeter hypodensities in the liver are likely cysts and are unchanged or smaller compared to the prior CT in 2015. Biliary: The gallbladder has no gallstones, pericholecystic fluid, gallbladder wall thickening, or surrounding inflammatory change. Pancreas: The pancreas has no mass or ductal dilatation. There is no surrounding inflammation. Spleen: Normal size. There are no masses. Adrenals: No hypertrophy or nodules. Kidneys: No obstructive calculus or hydronephrosis. No solid mass. No cystic mass. Peritoneum and bowel: The distal esophagus and stomach are normal. The small bowel has a normal caliber and appearance. The terminal ileum is normal. The large bowel demonstrates increased stool throughout consistent with constipation. There is questionable circumferential thickening of the rectum. Presacral fat demonstrates increased attenuation which is worse on the right side and is likely related to soft tissue neoplastic involvement from the sclerotic metastatic lesions in the right ischium, however could be secondary to edema from the fracture. No rectal mass. Nodes and vessels: No retroperitoneal or mesenteric adenopathy by size criteria. The aorta has atherosclerosis with no aneurysmal dilatation. The IVC is normal. Miscellaneous: No abdominal wall mass or hernia. PELVIS: Genitourinary: The bladder has no wall thickening or mass. The bladder is decompressed with a Acosta. Bones: The T9 vertebral body demonstrates sclerosis which is increased compared to the prior CT. There is a 1 centimeter sclerotic focus within the left L4 vertebral body which is unchanged. Sclerosis in the right iliac wing, right ischium, left ischium, and left iliac wing are again seen with increased sclerosis in the right inferior ramus and a right superior and right inferior ramus fracture. The inferior ramus fracture is displaced. These fractures appear similar compared to prior MRI on 04/03/2021 There is surrounding increased soft tissue density, suspicious for neoplastic involvement. No vertebral body compression fractures. IMPRESSION: 1. Subacute right superior and inferior ramus fractures. 2. Questionable thickening of the rectum could be due to proctitis with increased attenuation of the presacral fat consistent with edema versus neoplasm. 3. Increased soft tissue density surrounding the right ischium and posterior lateral pelvis, likely neoplastic. 4. Mildly progressive osseous metastatic disease as described above. Dictated by: Michele De La Cruz M.D. on 09/15/2021 at 10:29 Approved by: Michele De La Cruz M.D. on 09/15/2021 at 10:47
[2021-09-15 08:57] LABS: Add Manual Diff / Slide Review NO; Basophils Absolute Auto 100 /uL (0-100); Basophils Percent Auto 0.6 % (0-2); Eosinophils Absolute Auto 0 /uL (0-450); Eosinophils Percent Auto 0.1 % (2-4); Hematocrit 30.9 % (36-46); Hemoglobin 10.3 g/dL (12.0-16.0); Lymphocytes Absolute Auto 500 /uL (1100-4500); Lymphocytes Percent Auto 4.5 % (25-40); Mean Corpuscular HGB Conc 33.2 % (30-36); Mean Corpuscular Hemoglobin 25.4 PG (26-34); Mean Corpuscular Volume 76.4 fL (80-100); Monocytes Absolute Auto 700 /uL (0-900); Monocytes Percent Auto 5.8 % (3-14); Neutrophils Absolute Auto 10700 /uL (1500-7000); Platelet Count 206 X10^3/uL (150-400); Red Blood Cell Count 4.04 X10^6/uL (4.0-5.2); Red Cell Distribution Width 24.4 % (11.6-14.8)
[2021-09-15] MEDS: HYDROMORPHONE 1 MG INJ IV ×3 (08:57→12:24)
[2021-09-15 09:17] LABS: Alanine Aminotransferase 20 IU/L (<35); Albumin 3.7 g/dL (3.5-5.0); Albumin Globulin Ratio 1.3 (1.0-2.8); Alkaline Phosphatase 73 U/L (38-126); Aspartate Aminotransferase 23 IU/L (14-36); BUN Creatinine Ratio 26.1 (6-22); Bilirubin Total 0.6 mg/dL (0.2-1.3); Blood Urea Nitrogen 24 mg/dL (7-17); Calcium 8.4 mg/dL (8.4-10.2); Carbon Dioxide 31 mmol/L (22-32); Chloride 96 mmol/L (98-107); Estimated Glomerular Filt Rate > 60 mL/min (>60); Globulin 2.9 g/dL (1.7-4.1); Glucose 111 mg/dL (80-110); HEMOLYSIS < 15 (0-50); Potassium 3.7 mmol/L (3.4-5.1); Sodium 134 mmol/L (137-145); Total Protein 6.6 g/dL (6.3-8.2)
[2021-09-15 09:26] LABS: Anisocytosis 2+; Hypochromasia 1+
[2021-09-15 11:27] LABS: Appearance Urine UA CLEAR; Bilirubin Urine UA NEGATIVE (NEGATIVE); Color Urine UA YELLOW; Glucose Urine UA NEGATIVE (Negative); Ketones Urine UA NEGATIVE (NEGATIVE); Leukocyte Esterase Urine UA NEGATIVE (NEGATIVE); Nitrite Urine UA NEGATIVE (Negative); Occult Blood Urine UA TRACE-LYSED (Negative); Protein Urine UA NEGATIVE (Negative); Specific Gravity Urine UA <=1.005 (1.000-1.035); Urobilinogen Urine UA 0.2 E.U./dL (0.2)
[2021-09-15 11:34] LABS: Bacteria Urine Occasional (0-1); Culture Indicated Urine Cult Not Indicated; RBC Urine 0-1/HPF (0-5/HPF); WBC Urine 0-1/HPF (0-5/HPF)
== END 2021-09-15 12:45 | disposition home or self-care (01) ==
PROVIDERS: Emergency Provider Emergency Medicine; Family Provider Internal Medicine; PCP Internal Medicine
DX: R33.9 Retention of urine, unspecified (principal); C34.90 Malignant neoplasm of unspecified part of unspecified bronchus or lung; C79.51 Secondary malignant neoplasm of bone
CPT/HCPCS: 36415; 74177; 80053; 81001; 85025; 96374; 96376; 99285; J1170; J1642

== ENCOUNTER 2021-09-28 08:05 | Emergency (ER) | payer MEDICARE, BC, SELFPAY ==
[2021-09-28] VITALS (20 sets, daily range): BP systolic 120–191; BP diastolic 61–81; PULSE 75–103; RESP 12–21; TEMP 36.7; O2SAT 93–98; BMI 23.8
--- NOTE | 2021-09-28 08:24 | ED_ITS ---
HPI - Abdominal Pain General Chief Complaint: Abdominal Pain Stated Complaint: Pain in anus, states needing cath Time Seen by Provider: 09/28/21 08:07 History of Present Illness HPI narrative: 71F with history of metastatic, poorly differentiated [id number] lung favoring adenocarcinoma presents with her in the chief complaint of severe rectal pain. She had just been discharged from the [facility] yesterday after a 4 day admission for urinary retention, back pain and fecal incontinence. She had imaging demonstrating no cauda equina, has been taking morphine ER 60 mg b.i.d. with morphine 4-8 mg every 2 hours. You Amber note demonstrates imaging suggesting extensive osseous metastatic involvement of the sacrum and right acetabulum with presacral soft tissue extension abutting nerve roots of S2 which is similar to previous. Orthopedic and neurosurgery were involved, both did not feel that surgical intervention was needed. Radiation oncology was consulted. She is expected to taper her dexamethasone and has upcoming appointments with various specialties. She presents today with severe pain in her lower back and rectum and an inability to urinate. Her pain is worse when she moves and improves with rest. She is had no fever chills and denies nausea or vomiting. She denies any numbness or tingling in her extremities, she is had no trauma Related Data Home Medications Medication Instructions Recorded Confirmed ondansetron HCl 8 mg tablet 8 mg PO PRN PRN Nausea ##0 05/15/16 06/15/20 (Zofran) antiarthritic combination no.2 900 900 mg PO DAILY 09/27/17 06/15/20 mg tablet (glucosamine-chondroitin) cholecalciferol (vitamin D3) 50 2,000 unit PO DAILY 09/27/17 06/15/20 mcg (2,000 unit) capsule diphenoxylate-atropine 2.5 See Rx Instructions PO .COMPLEX 09/27/17 06/15/20 mg-0.025 mg tablet (Lomotil) PRN Diarrhea magnesium 250 mg tablet 125 mg PO DAILY 09/27/17 06/15/20 multivitamin 1 tab PO DAILY 09/27/17 06/15/20 tramadol 50 mg tablet 50 mg PO Q4H PRN pain 09/27/17 06/15/20 acetaminophen 325 mg tablet 325 mg PO DAILY PRN Pain 04/08/19 06/15/20 (Tylenol) furosemide 20 mg tablet 10 mg PO DAILY PRN Edema 04/08/19 06/15/20 docusate sodium 100 mg capsule 100 mg PO BID PRN Constipation 07/14/19 06/15/20 (Colace) Allergies Allergy/AdvReac Type Severity Reaction Status Date / Time No Known Drug Allergies Allergy Verified 09/15/21 08:17 Review of Systems Review of Systems Narrative: GENERAL: Denies chills, fatigue, malaise, fever, sweats. HEENT: Denies sinus pain, ear pain, sore throat, difficulty swallowing, dizziness. RESPIRATORY: Denies dyspnea, cough, wheezing, hemoptysis, sputum. CARDIOVASCULAR: Denies chest pain, palpitations, orthopnea, edema, GASTROINTESTINAL: See HPI : See HPI MUSCULOSKELETAL: See HPI SKIN: Denies rash, skin lesions, or other NEUROLOGIC: See HPI PSYCHIATRIC: No concerning psychosocial issues. 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) Malignant neoplasm of upper lobe of right lung (02/12/17) Metastatic bone cancer (11/2012) Non-small cell lung cancer (NSCLC) Peripheral edema Peripheral neuropathy Surgical History History of eye surgery History of spinal fusion History of toe surgery Status post hysterectomy with oophorectomy Status post knee surgery Status post rotator cuff repair Social History household members: spouse Smoking Status: Never smoker alcohol intake: current Smoking Status: Never smoker alcohol intake frequency: holidays/special occasions only Substance Use Type: does not use Exam Narrative Exam Narrative: GENERAL: [71] year old patient appears stated age. Well-developed patient, in obvious discomfort HEAD: Atraumatic. Normocephalic. EYES: Pupils equal round and reactive. Extraocular motions intact. No scleral icterus. No injection or drainage. ENT: Nose without bleeding, purulent drainage. Throat without erythema, tonsillar hypertrophy or exudate. Airway patent. NECK: Trachea midline. Non tender CARDIOVASCULAR: Regular rate and rhythm without murmurs, gallops, or rubs. RESPIRATORY: Clear to auscultation. Breath sounds equal bilaterally. No wheezes, rales, or rhonchi. GASTROINTESTINAL: Abdomen soft, slightly distended over the bladder, with moderate tenderness EXTREMITIES: Right lower extremity with 1+ pitting edema, left lower extremity absent of edema BACK: Nontender without deformity or crepitance. No flank tenderness. NEURO: AOx3. SKIN: No rash or erythema of visible areas Initial Vital Signs Initial Vital Signs: Vital Signs Temperature 98.1 F 09/28/21 08:07 Pulse Rate 103 H 09/28/21 08:07 Respiratory Rate 18 09/28/21 08:07 Blood Pressure 180/77 H 09/28/21 08:07 Pulse Oximetry 97 09/28/21 08:07 Oxygen Delivery Method 09/28/21 08:07 Course Orders Ordered: ED Orders 09/28/21 12:46 COVID19 -Nasal RAPID/Pre-Proc Stat Discontinued Medications Heparin Sodium (Porcine) (Heparin 500 Unit/5 Ml Port Flush) 500 unit IV PRN PRN PRN Reason: Flush Last Admin: 09/28/21 16:20 Dose: 500 unit Documented By: VALERY Hydromorphone HCl (Hydromorphone 1 Mg Inj) 1 mg IV NOW ONE Stop: 09/28/21 08:51 Last Admin: 09/28/21 09:05 Dose: 1 mg Documented By: VALERY Hydromorphone HCl (Hydromorphone 1 Mg Inj) 1 mg IV NOW ONE Stop: 09/28/21 12:09 Last Admin: 09/28/21 12:12 Dose: 1 mg Documented By: VALERY Sodium Chloride (Normal Saline 0.9%) 1,000 mls @ 1,000 mls/hr IV BOLUS ONE Stop: 09/28/21 09:49 Last Infusion: 09/28/21 12:49 Dose: 0 mls/hr Documented By: Admin: 09/28/21 09:35 Dose: 1,000 mls/hr Documented By: VALERY Consultations Consultation #1: Discussed with medical oncology at the [facility], same team that had managed her care during their visit. After reviewing the case there is no s ignificant additional or new intervention they would suggest, however they let me know that a referral was put in to local radiation oncology at [facility] ([place], whom patient had seen previously) Consultation #2: Discussed with Dr. Oneill and she will see in the office tomorrow at 230p Vital Signs Vital signs: Vital Signs - 8 hr 09/28/21 10:30 09/28/21 10:30 09/28/21 11:00 Pulse Rate 86 Respiratory Rate 17 Blood Pressure 163/74 H 153/69 H Pulse Oximetry 95 09/28/21 11:00 09/28/21 11:30 09/28/21 11:30 Pulse Rate 87 86 Respiratory Rate 18 20 Blood Pressure 154/70 H Pulse Oximetry 94 94 09/28/21 12:03 09/28/21 12:05 09/28/21 12:05 Pulse Rate 96 H 92 H Respiratory Rate 16 15 Blood Pressure 162/77 H Pulse Oximetry 98 97 09/28/21 12:30 09/28/21 12:30 09/28/21 13:00 Pulse Rate 83 Respiratory Rate 21 Blood Pressure 142/65 H 152/70 H Pulse Oximetry 94 09/28/21 13:00 09/28/21 13:30 09/28/21 13:30 Pulse Rate 81 78 Respiratory Rate 15 15 Blood Pressure 120/63 Pulse Oximetry 94 96 09/28/21 14:00 09/28/21 14:00 09/28/21 14:30 Pulse Rate 79 Respiratory Rate 20 Blood Pressure 147/72 H 154/67 H Pulse Oximetry 97 09/28/21 14:30 09/28/21 15:00 09/28/21 15:00 Pulse Rate 75 75 Respiratory Rate 16 14 Blood Pressure 123/61 Pulse Oximetry 95 95 09/28/21 15:45 09/28/21 16:20 Pulse Rate 75 80 Respiratory Rate 18 18 Blood Pressure 124/61 154/71 H Pulse Oximetry 95 97 MDM - Abdominal Pain Medical Records Attestation: I reviewed the patient's medical records. Medical records narrative: Known lung cancer with metastatic osseous spread and recent hospitalization for same. Images and care plan reviewed on [employer] care link through Lab Data Result diagrams: 09/28/21 09:09 09/28/21 09:09 Labs: Lab Results 09/28/21 09/28/21 09/28/21 Range/Units 09:09 09:09 09:09 WBC 15.3 H (4.5-11.0) X10^3/uL RBC 4.13 (4.0-5.2) X10^6/uL Hgb 10.3 L (12.0-16.0) g/dL Hct 31.7 L (36-46) % MCV 76.7 L (80-100) fL MCH 24.9 L (26-34) PG MCHC 32.4 (30-36) % RDW 24.1 H (11.6-14.8) % Plt Count 415 H (150-400) X10^3/uL Neut % (Auto) 93.4 H (50-75) % Lymph % (Auto) 2.2 L (25-40) % [place] % (Auto) 4.0 (3-14) % Eos % (Auto) 0.1 L (2-4) % Baso % (Auto) 0.3 (0-2) % Neut # (Auto) 76213 H (8908-5220) /uL Lymph # (Auto) 300 L (5934-1801) /uL [place] # (Auto) 600 (0-900) /uL Eos # (Auto) 0 (0-450) /uL Baso # (Auto) 0 (0-100) /uL Nucleated RBCs Cancelled Hypersegmented Neuts Cancelled Hypogranular Neuts Cancelled Reactive Lymphocytes Cancelled Smudge Cells Cancelled Other Cell Type Cancelled Toxic Granulation Cancelled Toxic Vacuolation Cancelled Dohle Bodies Cancelled Luisa Rods Cancelled WBC Morphology Comment Cancelled Platelet Estimate Cancelled Clumped Platelets Cancelled Plt Morphology Comment Cancelled RBC Morphology Cancelled Dimorphic RBCs Cancelled Polychromasia Cancelled Hypochromasia Cancelled Poikilocytosis Cancelled Basophilic Stippling Cancelled Anisocytosis Cancelled Microcytosis Cancelled Macrocytosis Cancelled Spherocytes Cancelled Pappenheimer Bodies Cancelled Sickle Cells Cancelled Target Cells Cancelled Tear Drop Cells Cancelled Ovalocytes Cancelled Stomatocytes Cancelled Helmet Cells Cancelled [place] Bodies Cancelled Bryant Rings Cancelled Pierre Cells Cancelled Acanthocytes (Spur) Cancelled Rouleaux Cancelled Schistocytes Cancelled Sodium 137 (137-145) mmol/L Potassium 3.6 (3.4-5.1) mmol/L Chloride 98 (98-107) mmol/L Carbon Dioxide 30 (22-32) mmol/L BUN 30 H (7-17) mg/dL Creatinine 0.83 (0.52-1.04) mg/dL Estimated GFR > 60 (>60) mL/min BUN/Creatinine Ratio 36.1 H (6-22) Glucose 97 (80-110) mg/dL Calcium 9.1 (8.4-10.2) mg/dL Total Bilirubin 0.4 (0.2-1.3) mg/dL AST 30 (14-36) IU/L ALT 25 (<35) IU/L Alkaline Phosphatase 80 (38-126) U/L Total Protein 6.8 (6.3-8.2) g/dL Albumin 3.9 (3.5-5.0) g/dL Globulin 2.9 (1.7-4.1) g/dL Albumin/Globulin Ratio 1.3 (1.0-2.8) Urine Color Yellow Urine Appearance Clear Urine pH 7.0 (4.5-8.0) Ur Specific [place] 1.010 (1.000-1.035) Urine Protein Negative (Negative) Urine Glucose (UA) Negative (Negative) g/dL Urine Ketones Negative (NEGATIVE) Urine Occult Blood Negative (Negative) Urine Nitrate Negative (Negative) Urine Bilirubin Negative (NEGATIVE) Urine Urobilinogen 0.2 (0.2) E.U./dL Ur Leukocyte Esterase Negative (NEGATIVE) Urine RBC None seen (0-5/HPF) Urine WBC None seen (0-5/HPF) Urine Bacteria None seen (None) Ur Culture Indicated? Cult not indicated Micro UA Comment Microscopic normal SARS-CoV-2 (PCR) (Negative) 09/28/21 Range/Units 12:46 WBC (4.5-11.0) X10^3/uL RBC (4.0-5.2) X10^6/uL Hgb (12.0-16.0) g/dL Hct (36-46) % MCV (80-100) fL MCH (26-34) PG MCHC (30-36) % RDW (11.6-14.8) % Plt Count (150-400) X10^3/uL Neut % (Auto) (50-75) % Lymph % (Auto) (25-40) % [place] % (Auto) (3-14) % Eos % (Auto) (2-4) % Baso % (Auto) (0-2) % Neut # (Auto) (0599-2622) /uL Lymph # (Auto) (1439-3246) /uL [place] # (Auto) (0-900) /uL Eos # (Auto) (0-450) /uL Baso # (Auto) (0-100) /uL Nucleated RBCs Hypersegmented Neuts Hypogranular Neuts Reactive Lymphocytes Smudge Cells Other Cell Type Toxic Granulation Toxic Vacuolation Dohle Bodies Luisa Rods WBC Morphology Comment Platelet Estimate Clumped Platelets Plt Morphology Comment RBC Morphology Dimorphic RBCs Polychromasia Hypochromasia Poikilocytosis Basophilic Stippling Anisocytosis Microcytosis Macrocytosis Spherocytes Pappenheimer Bodies Sickle Cells Target Cells Tear Drop Cells Ovalocytes Stomatocytes Helmet Cells [place] Bodies Bryant Rings Pierre Cells Acanthocytes (Spur) Rouleaux Schistocytes Sodium (137-145) mmol/L Potassium (3.4-5.1) mmol/L Chloride (98-107) mmol/L Carbon Dioxide (22-32) mmol/L BUN (7-17) mg/dL Creatinine (0.52-1.04) mg/dL Estimated GFR (>60) mL/min BUN/Creatinine Ratio (6-22) Glucose (80-110) mg/dL Calcium (8.4-10.2) mg/dL Total Bilirubin (0.2-1.3) mg/dL AST (14-36) IU/L ALT (<35) IU/L Alkaline Phosphatase (38-126) U/L Total Protein (6.3-8.2) g/dL Albumin (3.5-5.0) g/dL Globulin (1.7-4.1) g/dL Albumin/Globulin Ratio (1.0-2.8) Urine Color Urine Appearance Urine pH (4.5-8.0) Ur Specific [place] (1.000-1.035) Urine Protein (Negative) Urine Glucose (UA) (Negative) g/dL Urine Ketones (NEGATIVE) Urine Occult Blood (Negative) Urine Nitrate (Negative) Urine Bilirubin (NEGATIVE) Urine Urobilinogen (0.2) E.U./dL Ur Leukocyte Esterase (NEGATIVE) Urine RBC (0-5/HPF) Urine WBC (0-5/HPF) Urine Bacteria (None) Ur Culture Indicated? Micro UA Comment SARS-CoV-2 (PCR) Negative (Negative) MDM Narrative Medical decision making narrative: Patient with chronic pain presents stating her pain is out of control and she is unable to urinate, bladder scan notes a large amount of urine, Anderson catheter placed well over 1 L of urine out, this did result in significant but not compl ete resolution of symptoms. Patient and do state that she probably overdid it yesterday in terms of her activity. Otherwise her response to therapies is reasonable, labs are unremarkable, she has follow-up with Urology and Radiation Oncology tomorrow. She has appropriate pain control for home. Her pain is well controlled here and she is tolerating orals. She shows no signs of sepsis. Return precautions discussed and questions have been answered to her apparent satisfaction Discharge Plan Departure Patient Disposition: Home Clinical Impression: Acute urinary retention, Constipation, Anal or rectal pain Instructions: DI for Constipation, DI for Urinary Retention in Women Activity Restrictions/Additional Instructions: *You have been diagnosed with [urinary retention, constipation and severe rectal pain] *What to do: *Please continue to take your regular medications as directed. [ ] New medication prescriptions sent to your pharmacy: [ ] [ ] New medication written as a paper prescription [x ] No new medications given *Please follow up with your urologist tomorrow as previously planned *Please present to Dr. Oneill's office tomorrow for your appointment at 230pm *The anderson catheter will stay in place until your appointment with the urologist, as we discussed your full bladder likely played a large role in your pain *Limit your activity and try not to over do it *Return to Emergency Department if you should have any new, worsening or concerning symptoms Prescriptions: No Action ondansetron HCl [Zofran] 8 MG tablet 8 mg PO PRN PRN (Reason: Nausea) Qty: 0 multivitamin tablet 1 tab PO DAILY diphenoxylate-atropine [Lomotil] 2.5-0.025 mg tablet See Rx Instructions PO .COMPLEX PRN (Reason: Diarrhea) Label Comments: 1-2 tabs PO four times a day PRN for loose stool. Do not exceed 8 tabs per day; Rx Instructions: 1-2 tabs PO four times a day PRN for loose stool. Do not exceed 8 tabs per day; tramadol 50 mg tablet 50 mg PO Q4H PRN (Reason: pain) Label Comments: 1/2 - 1 pill magnesium 250 mg tablet 125 mg PO DAILY cholecalciferol (vitamin D3) 2,000 unit capsule 2,000 unit PO DAILY antiarthritic combination no.2 [glucosamine-chondroitin] 900 mg tablet 900 mg PO DAILY furosemide 20 mg tablet 10 mg PO DAILY PRN (Reason: Edema) acetaminophen [Tylenol] 325 mg tablet 325 mg PO DAILY PRN (Reason: Pain) docusate sodium [Colace] 100 mg capsule 100 mg PO BID PRN (Reason: Constipation) Referrals: Valentin Hernandez MD [Primary Care Provider] - Jamaal Oneill MD [Non-Staff] - Visit Report Forms: Patient Portal/API
[2021-09-28] MEDS: HYDROMORPHONE 1 MG INJ IV ×2 (09:05→12:12)
[2021-09-28] MEDS: SODIUM CHLORIDE 0.9% 1,000 ML 1000 ML IV (09:35)
[2021-09-28 09:58] LABS: Appearance Urine UA CLEAR; Bilirubin Urine UA NEGATIVE (NEGATIVE); Color Urine UA YELLOW; Glucose Urine UA NEGATIVE (Negative); Ketones Urine UA NEGATIVE (NEGATIVE); Leukocyte Esterase Urine UA NEGATIVE (NEGATIVE); Nitrite Urine UA NEGATIVE (Negative); Occult Blood Urine UA NEGATIVE (Negative); Protein Urine UA NEGATIVE (Negative); Urobilinogen Urine UA 0.2 E.U./dL (0.2)
[2021-09-28 10:02] LABS: Add Manual Diff / Slide Review NO; Basophils Absolute Auto 0 /uL (0-100); Basophils Percent Auto 0.3 % (0-2); Eosinophils Absolute Auto 0 /uL (0-450); Eosinophils Percent Auto 0.1 % (2-4); Hematocrit 31.7 % (36-46); Hemoglobin 10.3 g/dL (12.0-16.0); Lymphocytes Absolute Auto 300 /uL (1100-4500); Lymphocytes Percent Auto 2.2 % (25-40); Mean Corpuscular HGB Conc 32.4 % (30-36); Mean Corpuscular Hemoglobin 24.9 PG (26-34); Mean Corpuscular Volume 76.7 fL (80-100); Monocytes Absolute Auto 600 /uL (0-900); Neutrophils Absolute Auto 14300 /uL (1500-7000); Neutrophils Percent Auto 93.4 % (50-75); Platelet Count 415 X10^3/uL (150-400); Red Blood Cell Count 4.13 X10^6/uL (4.0-5.2); Red Cell Distribution Width 24.1 % (11.6-14.8); White Blood Cell Count 15.3 X10^3/uL (4.5-11.0)
[2021-09-28 10:04] LABS: Bacteria Urine None Seen; Culture Indicated Urine Cult Not Indicated; RBC Urine None Seen (0-5/HPF); Urine Comments Microscopic Normal; WBC Urine None Seen (0-5/HPF)
[2021-09-28 10:11] LABS: Alanine Aminotransferase 25 IU/L (<35); Albumin 3.9 g/dL (3.5-5.0); Albumin Globulin Ratio 1.3 (1.0-2.8); Alkaline Phosphatase 80 U/L (38-126); Aspartate Aminotransferase 30 IU/L (14-36); BUN Creatinine Ratio 36.1 (6-22); Bilirubin Total 0.4 mg/dL (0.2-1.3); Blood Urea Nitrogen 30 mg/dL (7-17); Calcium 9.1 mg/dL (8.4-10.2); Carbon Dioxide 30 mmol/L (22-32); Chloride 98 mmol/L (98-107); Estimated Glomerular Filt Rate > 60 mL/min (>60); Globulin 2.9 g/dL (1.7-4.1); Glucose 97 mg/dL (80-110); HEMOLYSIS < 15 (0-50); Potassium 3.6 mmol/L (3.4-5.1); Sodium 137 mmol/L (137-145); Total Protein 6.8 g/dL (6.3-8.2)
[2021-09-28 13:03] LABS: COVID19 -Nasal RAPID Negative (Negative)
== END 2021-09-28 16:22 | disposition home or self-care (01) ==
PROVIDERS: Emergency Provider Emergency Medicine; Family Provider Internal Medicine; PCP Internal Medicine
DX: R33.8 Other retention of urine (principal); K59.00 Constipation, unspecified; K62.89 Other specified diseases of anus and rectum; Z20.822 Contact with and (suspected) exposure to COVID-19
CPT/HCPCS: 36415; 51798; 80053; 81001; 85025; 87635; 96361; 96374; 96376; 99284; C9803; J1170; J1642

== ENCOUNTER 2021-10-06 18:52 | Emergency (ER) | payer MEDICARE, BC, SELFPAY ==
[2021-10-06 19:05] VITALS: BP 157/65; PULSE 93; RESP 20; TEMP 36.5; O2SAT 99; BMI 22.8
--- NOTE | 2021-10-06 19:09 | ED.FEMALEGU ---
HPI - Female Genitourinary General Chief complaint: Urogenital-Female Stated complaint: Urinary Catheter issue Time Seen by Provider: 10/06/21 19:09 Source: patient Mode of arrival: Ambulatory History of Present Illness HPI Narrative: 71F with history of metastatic, poorly differentiated [id number] lung favoring adenocarcinoma presents with her in the chief complaint of?a anderson catheter problem. She had been seen relatively recently here and was having urinary retention and a anderson was placed. She was had referral to urology and had been doing well, but today her external bag became disconnected and she's had no urine in the bad since. She denies any pain, fever, or chills. She is otherwise well and free of complaint. Related Data Home Medications Medication Instructions Recorded Confirmed ondansetron HCl 8 mg tablet 8 mg PO PRN PRN Nausea ##0 05/15/16 06/15/20 (Zofran) antiarthritic combination no.2 900 900 mg PO DAILY 09/27/17 06/15/20 mg tablet (glucosamine-chondroitin) cholecalciferol (vitamin D3) 50 2,000 unit PO DAILY 09/27/17 06/15/20 mcg (2,000 unit) capsule diphenoxylate-atropine 2.5 See Rx Instructions PO .COMPLEX 09/27/17 06/15/20 mg-0.025 mg tablet (Lomotil) PRN Diarrhea magnesium 250 mg tablet 125 mg PO DAILY 09/27/17 06/15/20 multivitamin 1 tab PO DAILY 09/27/17 06/15/20 tramadol 50 mg tablet 50 mg PO Q4H PRN pain 09/27/17 06/15/20 acetaminophen 325 mg tablet 325 mg PO DAILY PRN Pain 04/08/19 06/15/20 (Tylenol) furosemide 20 mg tablet 10 mg PO DAILY PRN Edema 04/08/19 06/15/20 docusate sodium 100 mg capsule 100 mg PO BID PRN Constipation 07/14/19 06/15/20 (Colace) Allergies Allergy/AdvReac Type Severity Reaction Status Date / Time No Known Drug Allergies Allergy Verified 09/15/21 08:17 Review of Systems Review of Systems Narrative: GENERAL: Denies chills, fatigue, malaise, fever, sweats. HEENT: Denies sinus pain, ear pain, sore throat, difficulty swallowing, dizziness. RESPIRATORY: Denies dyspnea, cough, wheezing, hemoptysis, sputum. CARDIOVASCULAR: Denies chest pain, palpitations, orthopnea, edema, GASTROINTESTINAL: Denies nausea, vomiting, abdominal pain, diarrhea, constipation, melena. : See HPI MUSCULOSKELETAL: denies weakness, joint pain, or bony pain SKIN: Denies rash, skin lesions, or other NEUROLOGIC: Denies weakness, headache, numbness, change in speech, confusion, seizures, incoordination. PSYCHIATRIC: No concerning psychosocial issues. 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) Malignant neoplasm of upper lobe of right lung (02/12/17) Metastatic bone cancer (11/2012) Non-small cell lung cancer (NSCLC) Peripheral edema Peripheral neuropathy Surgical History History of eye surgery History of spinal fusion History of toe surgery Status post hysterectomy with oophorectomy Status post knee surgery Status post rotator cuff repair alcohol intake frequency: holidays/special occasions only Substance Use Type: does not use Exam Narrative Exam Narrative: GEN: AOx3 and in mild distress EYES: Pupils are equal, round, and reactive to light and accommodation. Extraoccular muscles are intact bilaterally. There is no subconjunctival hemorrhage or exudate. CHEST: Lungs are clear to auscultation bilaterally and free of wheezes, rales, or rhonchi. Heart rate is regular rhythm, there are no murmurs, clicks, rubs, or gallops. There is no chest wall tenderness. ABD: Abdomen is soft and nontender. There is no guarding or rebound. Bowel sounds are normal in all 4 quadrants. There is no mass or organomegaly. No suprapubic tenderness or fullness. No urine in Anderson bag EXT: Full painless ROM of all extremities with no loss of sensation or strength. SKIN: Warm, pink, and dry. No erythema or rash Initial Vital Signs Initial Vital Signs: Vital Signs Temperature 97.7 F 10/06/21 19:05 Pulse Rate 93 H 10/06/21 19:05 Respiratory Rate 20 10/06/21 19:05 Blood Pressure 157/65 H 10/06/21 19:05 Pulse Oximetry 99 10/06/21 19:05 Oxygen Delivery Method 10/06/21 19:05 Course Reevaluation(s) Reevaluation #1: Nursing has adjusted the Anderson but did not need to flushed nor change it out and it is freely flowing an operating appropriately. No indication or need for further evaluation or intervention Vital Signs Vital signs: Vital Signs - 8 hr 10/06/21 19:05 Temperature 97.7 F Pulse Rate 93 H Respiratory Rate 20 Blood Pressure 157/65 H Pulse Oximetry 99 Oxygen Delivery Method Room Air Discharge Plan Departure Patient Disposition: Home Clinical Impression: Dislodged Anderson catheter Instructions: How to Care for Your Anderson Catheter -- Female Activity Restrictions/Additional Instructions: *You have been diagnosed with [Anderson catheter problem, now resolved] *What to do: *Please continue to take your regular medications as directed. *Please follow up with your primary care provider in 2-3 days, call for an appointment. Let them know you were seen in the Emergency Department and that we ask that you be seen in follow up. We will electronically transmit a record of today's note if your PCP is in our system *If you do not have a primary care provider please contact the [facility] Resource line at [phone]. They will ask some questions about your medical history and help get you set up with a doctor in the community. *Return to Emergency Department if you should have any new, worsening or concerning symptoms Prescriptions: No Action ondansetron HCl [Zofran] 8 MG tablet 8 mg PO PRN PRN (Reason: Nausea) Qty: 0 multivitamin tablet 1 tab PO DAILY diphenoxylate-atropine [Lomotil] 2.5-0.025 mg tablet See Rx Instructions PO .COMPLEX PRN (Reason: Diarrhea) Label Comments: 1-2 tabs PO four times a day PRN for loose stool. Do not exceed 8 tabs per day; Rx Instructions: 1-2 tabs PO four times a day PRN for loose stool. Do not exceed 8 tabs per day; tramadol 50 mg tablet 50 mg PO Q4H PRN (Reason: pain) Label Comments: 1/2 - 1 pill magnesium 250 mg tablet 125 mg PO DAILY cholecalciferol (vitamin D3) 2,000 unit capsule 2,000 unit PO DAILY antiarthritic combination no.2 [glucosamine-chondroitin] 900 mg tablet 900 mg PO DAILY furosemide 20 mg tablet 10 mg PO DAILY PRN (Reason: Edema) acetaminophen [Tylenol] 325 mg tablet 325 mg PO DAILY PRN (Reason: Pain) docusate sodium [Colace] 100 mg capsule 100 mg PO BID PRN (Reason: Constipation) Referrals: Valentin Hernandez MD [Primary Care Provider] - Visit Report Forms: Patient Portal/API
--- NOTE | 2021-10-06 19:32 | PC.NURSE ---
pt states her leg bag from anderson tubing, she placed the night bag on but has not seen any drainage and was worried.
== END 2021-10-06 19:44 | disposition home or self-care (01) ==
PROVIDERS: Emergency Provider Emergency Medicine; Family Provider Internal Medicine; PCP Internal Medicine
DX: T83.021A Displacement of indwelling urethral catheter, initial encounter (principal)
CPT/HCPCS: 51798; 99282; 99283